=== PATIENT | female | born 1960 | race Caucasian/White ===

== ENCOUNTER 2016-07-02 10:19 | Outpatient (CLI) ==
[2016-03-19 15:57] VITALS: BMI 17.7
--- NOTE | 2016-07-02 12:24 | MRI ---
EXAM: MRI lumbar spine without IV contrast. DATE: 07/02/2016. HISTORY: Lumbar degenerative disc disease. TECHNIQUE: As sagittal and axial T1W and T2W sequences of the lumbar spine along with sagittal IR a nd coronal T2W sequences were obtained using 1.2 Karol magnet. No IV contrast. COMPARISON: MRI L-spine [address] L-spine [address] chest 10 Oct 2014. FINDINGS: There are five [id number] lumbar vertebra. At the thoracolumbar junction, there is a transitional vertebra with either hypoplastic ribs or unusual transverse processes. Previous CT s can demonstrates 11 thoracic vertebra with classic paired ribs followed by this transitional vertebr a. For the purposes of this dictation, and in keeping with nomenclature from previous studies, this transitional vertebra is referred to as T12. There is no lumbar scoliosis. A 2 mm anterior subluxation of L3 relative to L2, a 2.5 mm anterolist hesis of L4 relative to L3, a 3 mm anterolisthesis of L5 relative to L4 are observed. No other subl uxation, acute fracture, osseous malignancy, or pars interarticularis defect is identified. Lumbar v ertebra are normal in height. Anterior and lateral osteophytes are present at multiple lumbar level s. Minor L4-5 and moderate/marked L5-S1 disc space narrowing is detected. No sacral fracture or st ress reaction is apparent. SI joints are unremarkable. Conus medullaris terminates at L1. Visible spinal cord is normal. No retroperitoneal lymphadenopathy, paraspinal mass, or aortic aneurysm is detected. Paraspinal mus culature is symmetric bilaterally. Visible portions of the liver, spleen, adrenal glands and kidney s are limited by breathing motion artifacts; however, no definitive neoplasm is detected. Segmental analysis: T12-L1: Normal L1-2: Small/moderate concentric disc bulge (asymmetrically prominent in the left foramen to far lat eral region), superimposed left paracentral 2.4 x 5 mm disc protrusion, and minor facet disease caus e minimal right and mild/moderate left foraminal stenosis. Left L2 nerve root contacts the disc bul ge near the foramen. No central canal stenosis. L2-3: Minimal anterior subluxation of L3, small concentric disc bulge (with left foraminal annular fissure), and minor facet arthropathy cause mild left foraminal narrowing. No central canal stenosi s. L3-4: Mild anterior subluxation of L3, moderate concentric disc bulge, mild bilateral facet arthrop athy, and mild ligamentum flavum hypertrophy cause moderate central canal stenosis and mild/moderate bilateral foraminal stenoses. Left L3 nerve root contacts the disc bulge near the lateral margin o f the foramen. L4-5: Minor anterior subluxation of L5, moderate concentric disc bulge, superimposed midline disc e xtrusion (4 mm AP by 9 mm transverse x 10 mm behind the L5 superior endplate) mild facet arthropathy and moderate ligamentum flavum hypertrophy cause severe central canal stenosis, moderate/marked rig ht foraminal stenosis, and mild left foraminal stenosis. Right L4 nerve root contacts the disc bulg e near the lateral margin of the foramen. Disc bulge causes mild bilateral lateral recess stenosis. L5-S1: Moderate concentric disc bulge and minor facet arthropathy cause mild central canal stenosis , mild right foraminal stenosis, and marked left foraminal stenosis. Each L5 nerve root contacts th e disc bulge near the foramen. The disc bulge appears to compress the left S1 nerve root against th e left facet as the nerve is exiting the thecal sac. IMPRESSIONS: 1. L-spine moderate spondylosis, mild facet arthropathy, and multilevel DDD - - similar to Mar 2013 . 2. Multilevel central canal stenosis (L3-4: Moderate. L4-5: Severe. L5-S1: Mild). 3. Multilevel foraminal stenosis. Left L3, right L4, both L5 nerve compromise near the foramen. 4. L5-S1 disc bulge compresses the left S1 nerve root and could be a source for pain/radiculopathy. 5. 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
== END 2016-07-02 10:20 | disposition home or self-care (01) ==
LOC: RAD 10:19
PROVIDERS: ATTEND Family Medicine
DX: M51.36 Other intervertebral disc degeneration, lumbar region (principal)

== ENCOUNTER 2016-07-05 11:07 | Outpatient (CLI) ==
[2016-03-19 15:57] VITALS: BMI 17.7
--- NOTE | 2016-07-05 12:33 | CT ---
EXAM: CT THORAX HISTORY: Pulmonary nodule. TECHNIQUE: CT thorax without intravenous contrast. 5-mm axial sections. Coronal and sagittal re-fo rmations. 10/10/2014 COMPARISON: Heart size is within normal limits. Mild to moderate atherosclerotic disease of the aorta. Exam is limited without the administration of intravenous contrast agent although there appear to be a few nonspecific mediastinal lymph nodes probably remaining less than a centimeter short axis. The lungs are hyperinflated. There is basilar fibrosis with reticular architecture of the interstit ium at this level. Patchy areas of opacity, mostly pleural-based have increased since prior exam. T he well-defined nodular opacities previously seen appear stable. Pathology (malignancy or pneumonia ) within the small areas of peripheral consolidation cannot be excluded by this exam and follow-up C T is recommended. There is no pleural fluid or vascular congestion. The bones are within normal limits. IMPRESSION: 1. Hyperinflation and scattered fibrosis/chronic obstructive pulmonary disease grossly stable. Pat ulysses areas of opacity, mostly pleural-based have increased since prior exam. The well-defined nodular opacities previously seen appear stable. Pathology (malignancy or pneumonia) within the small area s of peripheral consolidation cannot be excluded by this exam and follow-up CT is recommended. Consi haim pulmonary consultation for further management planning. 2. Nonspecific mediastinal lymph nodes. 3. Mild to moderate atherosclerotic disease.
== END 2016-07-05 11:08 | disposition home or self-care (01) ==
LOC: RAD 11:07
PROVIDERS: ATTEND Family Medicine
DX: R91.1 Solitary pulmonary nodule (principal)

== ENCOUNTER 2016-07-25 17:20 | Emergency (ER) ==
[2016-07-25 17:27] VITALS: BP 114/87; TEMP 99.8; BMI 18.0
--- NOTE | 2016-07-25 18:01 | ED.PDOC ---
General ED Provider: Dr. QI BANDA Chief Complaint: Chest Wall Injury/Pain Stated Complaint: chest wall pain Time Seen by Physician: 17:30 Mode of Arrival: Walk-In Information Source: Patient Exam Limitations: No limitations Primary Care Provider: CONNIE ALDRIDGE Nursing and Triage Documentation Reviewed and Agree: Yes Trauma/Injury Complaint Exam - Trauma Complaint/Exam Location of Pain or Injury: Reports: Other Mechanism of Injury: Reports: Fall Symptoms Are: Still present Initial Severity: Mild Current Severity: Mild Character: Reports: Aching Aggravating: Reports: None Alleviating: Reports: None Associated Signs and Symptoms: Denies: LOC, Confusion, Memory loss, Lethargy, Vomiting, Bleeding, Bruising, Swelling, Extremity disuse, Painful respiration, Hoarseness, Dysphagia, Hemoptysis, Significant blood loss Related History: Reports: Similar episode Review of Systems - Review Of Systems Constitutional: Reports: No symptoms Eyes: Reports: No symptoms Ears, Nose, Mouth, Throat: Reports: No symptoms Respiratory: Reports: No symptoms Cardiac: Reports: Chest pain (right lateral chest wall) GI: Reports: No symptoms : Reports: No symptoms Musculoskeletal: Reports: No symptoms Skin: Reports: No symptoms Neurological: Reports: No symptoms Endocrine: Reports: No symptoms Hematologic/Lymphatic: Reports: No symptoms All Other Systems: Reviewed and Negative Past Medical History - Past Medical History Previously Healthy: No Endocrine: Reports: None, Hypothyroid Cardiovascular: Reports: None, Hypertension Respiratory: Reports: COPD Hematological: Reports: Anemia Gastrointestinal: Reports: GERD Genitourinary: Reports: None Neuro/Psych: Reports: None, TIA, Migraine, Anxiety, Depression, Other (CHRONIC HEADACHE) Musculoskeletal: Reports: Arthritis Cancer: Reports: Lung (NODULES ) Last Menstrual Period: N/A Other Pertinent Past Medical History: Reynauds, Lupus, back pain, heart problems - Surgical History General Surgical History: Reports: Hysterectomy, Appendectomy, Cholecystectomy, Unknown - Family History Family History: Reports: Unknown - Social History Smoking Status: Current every day smoker, Light tobacco smoker Hx Substance Use: No Alcohol Screening: Occasionally - Immunizations Tetanus Shot up to Date: Yes Physical Exam - Physical Exam Appearance: Well-appearing, No pain distress, Well-nourished Eyes: KE, EOMI, Conjunctiva clear ENT: Ears normal, Nose normal, Oropharynx normal Respiratory: Airway patent, Breath sounds clear, Breath sounds equal, Respirations nonlabored Cardiovascular: RRR, Pulses normal, No rub, No murmur GI/: Soft, Nontender, No masses, Bowel sounds normal, No Organomegaly Musculoskeletal: Normal strength, ROM intact, No edema, No calf tenderness Skin: Warm, Dry, Normal color Neurological: Sensation intact, Motor intact, Reflexes intact, Cranial nerves intact, Alert, Oriented Psychiatric: Affect appropriate, Mood appropriate Critical Care Note - Critical Care Note Total Time (mins): 0 Course - Course Vital Signs: Temp Pulse Resp BP Pulse Ox 07/25/16 17:20 99.8 F H 98 H 20 114/87 98 Departure - Departure Time of Disposition: 18:00 (refused imaging) Disposition: AMA Discharge Problem: Chest wall pain Instructions: Thoracic Pain (ED), Chest Wall Pain (ED) Condition: Good Pt referred to PMD for follow-up: No Additional Instructions: Please call your Family Physician as soon as possible to schedule a follow-up appointment. Allergies/Adverse Reactions: Allergies No Known Allergies Allergy (Verified 07/25/16 17:27) Home Medications: Ambulatory Orders Hydroxychloroquine Sulfate [Plaquenil] 200 mg PO BID 12/09/12 Levothyroxine Sodium [Tirosint] 50 mcg PO DAILY 12/09/12 Multivitamin 1 cap PO DAILY 12/09/12 Nifedipine [Procardia Xl] 60 mg PO DAILY 12/09/12 Potassium Chloride [Micro-K Cap] 10 meq PO DAILY 12/09/12 Trazodone HCl 100 mg PO BEDTIME 12/09/12 Hydrocodone Bit/Acetaminophen [[place] 7.5-325] 1 tab PO Q6HR PRN #12 tablet 03/19 Ondansetron [Zofran Odt] 4 mg PO Q6HR PRN #10 tab.rapdis 03/19/16 Amitriptyline HCl 50 mg PO BEDTIME 07/25/16 Cyclobenzaprine HCl [Flexeril] 10 mg PO Q8HR 07/25/16
== END 2016-07-25 18:33 | disposition left against medical advice (07) ==
LOC: ED 17:20
DX: R07.89 Other chest pain (principal); F17.210 Nicotine dependence, cigarettes, uncomplicated; Z79.899 Other long term (current) drug therapy
CPT/HCPCS: 99283

== ENCOUNTER 2016-10-20 21:52 | Inpatient (IN) ==
--- NOTE | 2016-10-20 22:23 | ED.PDOC ---
General ED Provider: Dr. FILIPE PONCE Chief Complaint: Chest Pain Stated Complaint: Been hurting in the left side of the chest on and off. not associated with SOB, PND. not short of breath. also c/o she is been feeling weak tired. Time Seen by Physician: 22:20 Mode of Arrival: Walk-In Information Source: Patient Nursing and Triage Documentation Reviewed and Agree: Yes Cardiovascular Complaint Exam - Chest Pain Complaint/Exam Onset: Gradual Symptoms Are: Resolved Timing: Intermittent Initial Severity: Mild Current Severity: Mild Location: Reports: Left lateral Pain Radiates: Reports: Left shoulder Character: Reports: Aching, Heaviness Aggravating: Reports: None Alleviating: Reports: None Associated Signs and Symptoms: Denies: Diaphoresis, Nausea, Vomiting, Fever, Palpitations, Cough, Hemoptysis, Back pain, Abdominal pain, Dizziness, Short of air, Calf pain, Calf swelling Related History: Reports: Similar episode Related Surgical History: Reports: None History of Healthcare-Acquired Pneumonia: Reports: No AMI/ACS Risk Factors: Reports: None TAD Risk Factors: Reports: None Pulmonary Embolism Risk Factors: Reports: None Prior Care for this Complaint: No Recent Stress Test: No Recent Echo/LV Function: No JVD Present: No Subcutaneous Emphysema Present: No Diminshed Breath Sounds: No Reproducible Chest Wall Pain: No Bilateral Pulses Present: Yes If Risk Factors for AMI/ACS Consider: EKG, Cardiac Enzymes, Serial Studies, Oxygen, Aspirin Differential Diagnoses: Stable Angina, Unstable Angina, Chest Wall Pain Quality Indicators For Acute ND or Cardiac Chest Pain: EKG in 10min. Review of Systems - Review Of Systems Constitutional: Reports: Malaise, Weakness Eyes: Reports: No symptoms Ears, Nose, Mouth, Throat: Reports: No symptoms Respiratory: Reports: No symptoms Cardiac: Reports: Chest pain GI: Reports: No symptoms : Reports: No symptoms Musculoskeletal: Reports: No symptoms Skin: Reports: No symptoms Neurological: Reports: Weakness Endocrine: Reports: No symptoms Hematologic/Lymphatic: Reports: No symptoms All Other Systems: Reviewed and Negative Past Medical History - Past Medical History Previously Healthy: No Endocrine: Reports: None, Hypothyroid Cardiovascular: Reports: None, Hypertension Respiratory: Reports: COPD Hematological: Reports: Anemia Gastrointestinal: Reports: GERD Genitourinary: Reports: None Neuro/Psych: Reports: None, TIA, Migraine, Anxiety, Depression, Other (CHRONIC HEADACHE) Musculoskeletal: Reports: Arthritis Cancer: Reports: Lung (NODULES ) Last Menstrual Period: NA Other Pertinent Past Medical History: Reynauds, Lupus, back pain, heart problems - Surgical History General Surgical History: Reports: Hysterectomy, Appendectomy, Cholecystectomy, Unknown - Family History Family History: Reports: Unknown - Social History Smoking Status: Current every day smoker, Heavy tobacco smoker Smoking Cessation Counseling Time: > 3 min - 10 min Hx Substance Use: Yes ([facility]) Alcohol Screening: Occasionally - Immunizations Tetanus Shot up to Date: Yes Physical Exam - Physical Exam Appearance: Ill-appearing, Thin Ill-appearing: Moderate Eyes: KE, EOMI ENT: Ears normal, Nose normal, Oropharynx normal Respiratory: Airway patent, Breath sounds clear, Breath sounds equal, Respirations nonlabored Cardiovascular: RRR, Pulses normal, No rub, No murmur GI/: Soft, Nontender, No masses, Bowel sounds normal, No Organomegaly Musculoskeletal: Normal strength, ROM intact, No edema, No calf tenderness Skin: Warm, Dry, Normal color Neurological: Sensation intact, Motor intact, Reflexes intact, Cranial nerves intact, Alert, Oriented Psychiatric: Affect appropriate, Mood appropriate Interpretation - Radiology Interpretation Radiology Interpretation By: Radiologist Radiology Results: Positive Exam Interpreted: CXR Critical Care Note - Critical Care Note Total Time (mins): 0 Course - Course Hematology/Chemistry: 10/20/16 22:40 10/20/16 22:40 Orders, Labs, Meds: Lab Review 10/20/16 10/20/16 10/20/16 22:40 22:53 23:00 WBC 7.28 RBC 2.94 L Hgb 7.6 L Hct 24.8 L MCV 84.4 MCH 25.9 L MCHC 30.6 L RDW Coeff of Mitzy 17.3 H Plt Count 339 Immature Gran % (Auto) 0.3 Neut % (Auto) 60.2 Lymph % (Auto) 28.4 [place] % (Auto) 9.6 Eos % (Auto) 1.2 Baso % (Auto) 0.3 Immature Gran # (Auto) 0.0 Neut # 4.4 Lymph # 2.1 [place] # 0.7 Eos # 0.1 Baso # 0.0 Sodium 143 Potassium 3.4 L Chloride 111 H Carbon Dioxide 24 Anion Gap 11.4 BUN 9 Creatinine 0.87 Estimated GFR (MDRD) 67.00 BUN/Creatinine Ratio 10.34 Glucose 85 Calcium 8.6 Magnesium 1.7 Total Bilirubin 0.11 AST 16 ALT 9 L Alkaline Phosphatase 88 Total Creatine Kinase 219 CK-MB (CK-2) 3.1 CK-MB (CK-2) % 1.07015 Troponin I 0.0310 Total Protein 6.3 L Albumin 3.0 L Globulin 3.3 Albumin/Globulin Ratio 0.91 Urine Color Yellow Urine Clarity Clear Urine pH 6.0 Ur Specific [place] 1.010 Urine Protein Negative Urine Glucose (UA) Negative Urine Ketones Negative Urine Blood Negative Urine Nitrite Negative Urine Bilirubin Negative Urine Urobilinogen 0.2 Ur Leukocyte Esterase 1+ Urine Microscopic WBC 5-10 Ur Squamous Epith Cells Not present Ur Renal Epithelial Cell 2-5 Urine Opiates Screen Positive Ur Oxycodone Screen Negative Urine Methadone Screen Negative Ur Propoxyphene Screen Negative Ur Barbiturates Screen Negative U Tricyclic Antidepress Positive Ur Phencyclidine Scrn Negative Ur Amphetamine Screen Negative U Methamphetamines Scrn Negative U Benzodiazepines Scrn Negative Urine Cocaine Screen Negative U Cannabinoids Screen Negative Orders Category Date Time Status CBC W/ AUTO DIFF Stat LAB 10/20/16 22:40 Completed COMPREHENSIVE METABOLIC PANEL Stat LAB 10/20/16 22:40 Completed CREATINE KINASE Stat LAB 10/20/16 22:40 Completed DRUG SCREEN, URINE, RAPID Stat LAB 10/20/16 23:00 Completed MAGNESIUM Stat LAB 10/20/16 22:53 Completed TROPONIN I Stat LAB 10/20/16 22:40 Completed URINALYSIS C & S IF INDICATED Stat LAB 10/20/16 23:00 Completed URINE CULTURE Stat LAB 10/20/16 23:[address] HEAD W/O CONTRAST Stat RADS 10/20/16 22:20 Completed CXR [CHEST, 2 VIEWS PA & LAT] Stat RADS 10/20/16 22:19 Completed Vital Signs: Temp Pulse Resp BP Pulse Ox 10/20/16 21:54 97.6 F 108 H 20 159/77 H 100 JOSE Risk Score JOSE Risk Score: Risk Score Odds of by 30D 0 0.1 (0.1-0.2) 1 0.3 (0.2-0.3) 2 0.4 (0.3-0.5) 3 0.7 (0.6-0.9) 4 1.2 (1.0-1.5) 5 2.2 (1.9-2.6) 6 3.0 (2.5-3.6) 7 4.8 (3.8-6.1) Departure - Departure Time of Disposition: 23:40 Disposition: ADMITTED INPATIENT Discharge Problem: Chest pain Anemia Qualifiers: Anemia type: iron deficiency Iron deficiency anemia type: chronic blood loss Qualifier Code: (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) Pneumonia Qualifiers: Pneumonia type: due to unspecified organism Laterality: bilateral Lung location : lower lobe of lung Qualifier Code: (J18.9) Pneumonia, unspecified organism Instructions: Chest Pain (ED) Condition: Stable Pt referred to PMD for follow-up: Yes Additional Instructions: advised to quite smoking keep f/u with PMD Allergies/Adverse Reactions: Allergies No Known Allergies Allergy (Verified 07/25/16 17:27) Home Medications: Ambulatory Orders Hydroxychloroquine Sulfate [Plaquenil] 200 mg PO BID 12/09/12 Levothyroxine Sodium [Tirosint] 50 mcg PO DAILY 12/09/12 Multivitamin 1 cap PO DAILY 12/09/12 Nifedipine [Procardia Xl] 60 mg PO DAILY 12/09/12 Potassium Chloride [Micro-K Cap] 10 meq PO DAILY 12/09/12 Trazodone HCl 100 mg PO BEDTIME 12/09/12 Hydrocodone Bit/Acetaminophen [[place] 7.5-325] 1 tab PO Q6HR PRN #12 tablet 03/19 Ondansetron [Zofran Odt] 4 mg PO Q6HR PRN #10 tab.rapdis 03/19/16 Amitriptyline HCl 50 mg PO BEDTIME 07/25/16 Cyclobenzaprine HCl [Flexeril] 10 mg PO Q8HR 07/25/16 Disposition Discussed With: Patient
[2016-10-20 22:48] LABS: BASOPHILS % (AUTO) 0.3 % (0.0-3.0); EOSINOPHILS # (AUTO) 0.1 K/ul (0.0-0.7); EOSINOPHILS % (AUTO) 1.2 % (0.0-7.0); HEMATOCRIT 24.8 % (37.0-47.0); HEMOGLOBIN 7.6 g/dl (12.0-16.0); IMMATURE GRANULOCYTE % (AUTO) 0.3 % (0.0-5.0); LYMPHOCYTES # (AUTO) 2.1 K/uL (0.60-3.4); LYMPHOCYTES % (AUTO) 28.4 (10.0-50.0); MEAN CORPUSCULAR HEMOGLOBIN 25.9 pg (27.0-31.0); MEAN CORPUSCULAR HGB CONC 30.6 (31.8-35.4); MEAN CORPUSCULAR VOLUME 84.4 fl (81.0-99.0); MONOCYTES # (AUTO) 0.7 K/uL (0.4-2.0); MONOCYTES % (AUTO) 9.6 (0-10); NEUTROPHILS # (AUTO) 4.4 K/ul (2.0-6.9); NEUTROPHILS % (AUTO) 60.2; PLATELET COUNT 339 10^3/uL (140-440); RED BLOOD COUNT 2.94 10^6/ul (4.20-5.40); WHITE BLOOD COUNT 7.28 K/ul (4.6-10.2)
--- NOTE | 2016-10-20 22:53 | CT ---
EXAM: CT scan brain without contrast HISTORY: Weakness COMPARISON: CT scan brain 08/08/2013 FINDINGS: Contiguous axial images obtained from the skull base to the convexities without contrast utilizing 5-mm collimation. Coronal reconstructions were imaged and reviewed.. The ventricles and C SF spaces are prominent compatible with age appropriate atrophy.. There is mild tracheal hypodensit y noted compatible with chronic microvascular disease. Post-infarctive encephalomalacia is seen wit hin the right temporal lobe with extension into the right parietal region. IMPRESSION: No acute intracranial findings.
--- NOTE | 2016-10-20 22:55 | DI ---
EXAM: Chest, two views, 10/20/2016 HISTORY: Chest pain COMPARISON: 02/12/2016 FINDINGS / IMPRESSION: Cardiomediastinal contours appear within normal limits. Interstitial infilt rate is present within both lungs. This is most severe at the right and left lung base. This may r epresent a combination of atelectasis and/or pneumonia. Mild superimposed edema not excluded. No p leural effusion. No pneumothorax.
[2016-10-20 23:12] LABS: BILIRUBIN,URINE Negative (NEGATIVE); KETONES,URINE Negative (NEGATIVE); LEUKOCYTE ESTERASE ,URINE 1+ (NEGATIVE); NITRITE,URINE Negative (NEGATIVE); PROTEIN,URINE Negative (NEGATIVE); URINE, BLOOD Negative (NEGATIVE)
[2016-10-20 23:18] LABS: ADD URINE MICROSCOPIC YES
[2016-10-20 23:22] LABS: ALBUMIN/GLOBULIN RATIO 0.91; ANION GAP 11.4; BILIRUBIN,TOTAL 0.11 mg/dL (0.00-1.20); BUN/CREATININE RATIO 10.34; CALCIUM 8.6 mg/dL (8.2-10.2); CREATININE 0.87 mg/dL (0.60-1.30); POTASSIUM 3.4 mmol/L (3.5-5.10); TOTAL PROTEIN 6.3 g/dL (6.4-8.2); TROPONIN I 0.031 ng/ml (0.0000-0.4000)
[2016-10-20 23:37] LABS: COCAIN SCREEN,URINE NEGATIVE (NEGATIVE)
[2016-10-20 23:38] LABS: CREATINE KINASE MB 3.1 ng/ml (0.0-3.6)
[2016-10-20] MEDS ORDERED: AMITRIPTYLINE HCL 50 MG PO SCH ×22 (23:45)
[2016-10-20] MEDS ORDERED: ROCEPHIN 1 GM in SODIUM CHLORIDE 50 ML IV SCH (23:45)
[2016-10-20] MEDS ORDERED: K-DUR PO STA (23:52)
[2016-10-21 00:11] LABS: RETICULOCYTE % 2.01 %
[2016-10-21 01:00] LABS: ABG PCO2 39.5 mmHg (35-45); ABG PH 7.387 (7.35-7.45)
[2016-10-21 01:00] LABS: FERRITIN 30.88 ng/mL (4.63-204.00); FOLATE 15.9 ng/mL (3.1-20.5)
[2016-10-21 01:01] LABS: ABG BASE EXCESS -1 (-2.0-2.0); ABG HCO3 23.7 (22.0-26.0); ABG TCO2 25 (22.0-28.0)
[2016-10-21] MEDS ORDERED: ROCEPHIN ONE (01:12)
[2016-10-21] MEDS: DUONEB NEB SCH ×5 (01:12→23:50)
[2016-10-21] MEDS ORDERED: ELAVIL PO ONE (01:13)
[2016-10-21] MEDS: SODIUM CHLORIDE 1,000 ML IV SCH (01:16)
[2016-10-21] MEDS: SOLU-MEDROL 40 MG IVP SCH ×3 (01:16→21:35)
[2016-10-21 06:04] LABS: BASOPHILS % (AUTO) 0.1 % (0.0-3.0); EOSINOPHILS % (AUTO) 0.1 % (0.0-7.0); HEMATOCRIT 25.1 % (37.0-47.0); HEMOGLOBIN 7.6 g/dl (12.0-16.0); IMMATURE GRANULOCYTE % (AUTO) 0.5 % (0.0-5.0); LYMPHOCYTES # (AUTO) 0.6 K/uL (0.60-3.4); LYMPHOCYTES % (AUTO) 6.2 (10.0-50.0); MEAN CORPUSCULAR HEMOGLOBIN 25.3 pg (27.0-31.0); MEAN CORPUSCULAR HGB CONC 30.3 (31.8-35.4); MEAN CORPUSCULAR VOLUME 83.7 fl (81.0-99.0); MONOCYTES # (AUTO) 0.1 K/uL (0.4-2.0); MONOCYTES % (AUTO) 0.8 (0-10); NEUTROPHILS # (AUTO) 8.6 K/ul (2.0-6.9); NEUTROPHILS % (AUTO) 92.3; PLATELET COUNT 328 10^3/uL (140-440)
[2016-10-21 06:39] LABS: ALBUMIN/GLOBULIN RATIO 0.91; ANION GAP 11.7; BILIRUBIN,TOTAL 0.15 mg/dL (0.00-1.20); BUN/CREATININE RATIO 10.97; CALCIUM 8.9 mg/dL (8.2-10.2); CREATININE 0.82 mg/dL (0.60-1.30); POTASSIUM 3.7 mmol/L (3.5-5.10); TOTAL PROTEIN 6.3 g/dL (6.4-8.2); TROPONIN I 0.021 ng/ml (0.0000-0.4000)
[2016-10-21 06:40] LABS: CREATINE KINASE MB 2.4 ng/ml (0.0-3.6)
[2016-10-21] MEDS: SYNTHROID PO SCH (08:30)
[2016-10-21] MEDS: PROCARDIA XL PO SCH (08:31)
[2016-10-21] MEDS: NORCO 7.5-325 PO PRN ×2 (08:31→15:40)
[2016-10-21] MEDS: MICRO-K CAP PO SCH (08:31)
[2016-10-21] MEDS: PLAQUENIL PO SCH ×2 (08:31→20:46)
[2016-10-21] MEDS: PROTONIX IV IVP SCH (08:32)
[2016-10-21] MEDS ORDERED: NON-FORMULARY MEDICATION (Hydroxychloroquine Sulfate 200 MG) PO SCH (09:00)
[2016-10-21] MEDS ORDERED: LEVOTHYROXINE SODIUM 50 MCG PO SCH ×22 (09:00)
--- NOTE | 2016-10-21 11:00 | PCM.PROG ---
Attending Provider: ATTENDING PROVIDER: Dr. FILIPE PONCE DATE OF SERVICE: 10/21/16 SUBJECTIVE: This 56 year old WHITE/ F was hospitalized 10/21/16 with anemia and community acquired pneumonia. Hemoglobin is 7.6. The patient says she did notice black tarry stools last month. REVIEW OF SYSTEMS: CONSTITUTIONAL: Weakness, tiredness. No fever, no chills. ENDOCRINE: No weight loss or weight gain. HEENT: No sinus drainage, no sore throat. CVS: No angina symptoms. No CHF symptoms. No palpitations. No atypical chest pain for CAD. No shortness of breath. RESPIRATORY: Cough. No hemoptysis. GI: No melena. No abdominal pain. No nausea, no vomiting. : No hematuria. No polyuria. SKIN: No rash. No wounds. MUSCULOSKELETAL: No pain. FORENSIC SCIENTIST: No blackout, no dizziness. No headache. No double vision. PSYCHIATRIC: Not anxious; no depression. No suicidal thoughts. No homicidal thoughts. PHYSICAL EXAMINATION: GENERAL: Cachetic lady lying in bed in no distress. VITAL SIGNS: Temperature 97.8 F, Pulse 82, Respiratory Rate 18, BP 100/50, Pulse Ox 95% HEENT: Normocephalic, atraumatic. Mucosa is dry, pallor positive. NECK: No JVP, no carotid bruit. No lymphadenopathy. CARDIAC: S1, S2, no S3. No murmur, gallop or regurgitation. LUNGS: Decreased entry. Crackles left more than right. ABDOMEN: Abdominal discomfort all over. Bowel sounds active. No rigidity, guarding or CVA tenderness. EXTREMITIES: No clubbing, cyanosis or edema. NEUROLOGIC: Awake, alert and oriented x3. LYMPHATIC: No palpable lymph nodes SKIN: Not dry. Intact. MUSCULOSKELETAL: No joint swelling. LAB REVIEW: 10/21/16 06:02 10/21/16 06:02 10/21/16 06:02: WBC 9.30, RBC 3.00 L, Hgb 7.6 L, Hct 25.1 L, MCV 83.7, MCH 25.3 L, MCHC 30.3 L, RDW Coeff of Mitzy 17.5 H, Plt Count 328, Immature Gran % (Auto) 0.5, Neut % (Auto) 92.3, Lymph % (Auto) 6.2 L, [place] % (Auto) 0.8, Eos % (Auto) 0.1, Baso % (Auto) 0.1, Immature Gran # (Auto) 0.1, Neut # 8.6 H, Lymph # 0.6, [place] # 0.1 L, Eos # 0.0, Baso # 0.0, Sodium 144, Potassium 3.7, Chloride 112 H, Carbon Dioxide 24, Anion Gap 11.7, BUN 9, Creatinine 0.82, Estimated GFR (MDRD) 72.00, BUN/Creatinine Ratio 10.97, Glucose 128 H, Calcium 8.9, Total Bilirubin 0.15, AST 15, ALT 9 L, Alkaline Phosphatase 87, Total Creatine Kinase 159, CK- MB (CK-2) 2.4, CK-MB (CK-2) % 1.30542, Troponin I 0.0210, Total Protein 6.3 L, Albumin 3.0 L, Globulin 3.3, Albumin/Globulin Ratio 0.91 10/21/16 00:43: Puncture Site Lb, O2 Saturation 97.0, ABG pH 7.387, ABG pCO2 39.5, ABG pO2 93.0, ABG HCO3 23.7, ABG Total CO2 25, ABG Base Excess -1, Hank Test +, FiO2 % 21.0 ASSESSMENT: 1. Anemia, rule out GI bleed 2. Community acquired pneumonia bilateral lower lobes 3. Hypertension 4. Dyslipidemia 5. Depression 6. DJD spine 7. Nicotine use PLAN: 1. Continue Rocephin 2. Continue Duonebs 3. Transfuse [address] chest [address] CT abdomen and pelvis 6. Stool for occult blood Plan and coordination of the patient's care discussed in the presence of Reeling And Tubing Machine Operator and nurse. CONDITION: Stable SCRIBED BY: NAOMI ABDALLA, Financial Aid Advisor scribed while in presence of service performed by Dr. FILIPE PONCE on 10/21/16 ([id number])
--- NOTE | 2016-10-21 13:19 | CT ---
EXAM: CT chest with and without contrast HISTORY: There is a breath, pneumonia COMPARISON: 07/13/2016 TECHNIQUE: CT chest performed with and without intravenous contrast. Coronal and sagittal reformat dejuan images obtained. FINDINGS: Thyroid and thoracic inlet appear normal. Heart is mildly enlarged. No pericardial effu martha. Aorta normal in caliber. Atherosclerosis. There are several enlarged mediastinal and bilate ral hilar lymph nodes. For example a 1.5 cm subcarinal lymph node, image 70 and a 1.4 cm left hilar lymph node, image 33. Small hiatal hernia. Suggestion of mild wall thickening mid and distal esop hagus could represent esophagitis. No acute abnormalities of the bones. There are subacute fractur es right lateral fifth and sixth ribs with callus formation. Central airway patent. Smooth interlo bular septal thickening suggested. Underlying peripheral chronic interstitial change suggested. Bi basilar consolidation. Small bilateral pleural effusions. 5 mm pulmonary nodule left lung image 43, grossly unchanged. Previously described right lung nodule obscured. No pneumothorax. Please refer to separate report CT abdomen pelvis regarding findings in the upper abdomen. IMPRESSION: 1. Bibasilar consolidation likely represents pneumonia. 2. Cardiomegaly. Findings suggesting pulmonary interstitial edema. Small bilateral pleural effusi ons. 3. Underlying chronic interstitial changes. 4. Mediastinal and hilar lymphadenopathy. CT chest with contrast follow-up recommended in 6 months for reevaluation. 5. Stable pulmonary nodule. This can be assessed on follow-up. 6. Suggestion of mild wall thickening mid and distal esophagus could represent esophagitis. Findin gs can be correlated with endoscopy. 7. Subacute fractures right lateral fifth and sixth ribs
--- NOTE | 2016-10-21 13:19 | CT ---
EXAM: CT ABDOMEN AND PELVIS HISTORY: Anemia, abdominal pain. TECHNIQUE: CT abdomen and pelvis with and without intravenous contrast. Images were reconstructed using 5 mm section thickness. Reformations were prepared. 75 mL Omnipaque. COMPARISON: 02/12/2016 FINDINGS: No focal hepatic or splenic lesions identified. Gallbladder is absent. Pancreas and adrenal glands are within normal limits. Normal enhancement of the kidneys with no hydronephrosis. Moderate vasc ular calcifications consistent with atherosclerosis or diabetic angiopathy. No aneurysmal caliber o f the aorta. Small sliding hiatal hernia. Stomach is otherwise unremarkable. Normal appendix. Moderate fecal ret ention throughout most of the colon. Nonobstructive bowel gas pattern. No uterus is identified. Th ere is moderate distension of the urinary bladder. Trace pelvic ascites, nonspecific. No inflammat ory focus within the abdominal fat is obvious. No ventral abdominal wall hernia. Dense breast tissue is seen bilaterally. Again noted is mild scle rosis of the upper femoral heads similar to that seen previously consistent with early avascular nec rosis. No pneumoperitoneum. See also same day CT thorax report. Basilar consolidations and pleura l fluid. IMPRESSION: 1. No definite etiology for the patient's anemia was found. Consider further workup. 2. Small sliding hiatal hernia. 3. Moderate fecal retention with nonobstructive bowel gas pattern. 4. Vascular calcifications. 5. Moderate distension of the urinary bladder, nonspecific. Correlate for adequate voiding functio n. 6. Lung base findings as described on same day CT thorax report.
[2016-10-21 15:18] LABS: CREATINE KINASE 127 U/L
[2016-10-21 15:21] LABS: CREATINE KINASE MB 1.8 ng/ml (0.0-3.6)
[2016-10-21 19:07] LABS: HEMOGLOBIN 10.9 g/dl (12.0-16.0)
[2016-10-21] MEDS: DESYREL PO SCH (20:45)
[2016-10-21] MEDS: ROCEPHIN 1 GM in SODIUM CHLORIDE 50 ML IV SCH (20:45)
[2016-10-21] MEDS: ELAVIL PO SCH (20:46)
[2016-10-21] MEDS ORDERED: NON-FORMULARY MEDICATION (Trazodone Hcl [Trazodone Hcl] 100 MG) PO SCH ×22 (21:00)
[2016-10-21] MEDS ORDERED: ZOFRAN 4 MG/2 ML IVP STA (22:42)
[2016-10-22] MEDS: DUONEB NEB SCH ×4 (05:03→23:00)
[2016-10-22 05:25] LABS: BASOPHILS % (AUTO) 0.1 % (0.0-3.0); HEMATOCRIT 33.2 % (37.0-47.0); HEMOGLOBIN 10.7 g/dl (12.0-16.0); IMMATURE GRANULOCYTE % (AUTO) 0.6 % (0.0-5.0); LYMPHOCYTES # (AUTO) 0.8 K/uL (0.60-3.4); LYMPHOCYTES % (AUTO) 4.9 (10.0-50.0); MEAN CORPUSCULAR HEMOGLOBIN 26.5 pg (27.0-31.0); MEAN CORPUSCULAR HGB CONC 32.2 (31.8-35.4); MEAN CORPUSCULAR VOLUME 82.2 fl (81.0-99.0); MONOCYTES # (AUTO) 0.3 K/uL (0.4-2.0); MONOCYTES % (AUTO) 1.8 (0-10); NEUTROPHILS # (AUTO) 14.2 K/ul (2.0-6.9); NEUTROPHILS % (AUTO) 92.6; PLATELET COUNT 323 10^3/uL (140-440); RED BLOOD COUNT 4.04 10^6/ul (4.20-5.40); WHITE BLOOD COUNT 15.36 K/ul (4.6-10.2)
[2016-10-22] MEDS: SYNTHROID PO SCH (05:29)
[2016-10-22 05:57] LABS: ALBUMIN/GLOBULIN RATIO 0.86; ANION GAP 14.2; BILIRUBIN,TOTAL 0.22 mg/dL (0.00-1.20); BUN/CREATININE RATIO 17.94; CALCIUM 9.2 mg/dL (8.2-10.2); CREATININE 0.78 mg/dL (0.60-1.30); POTASSIUM 4.2 mmol/L (3.5-5.10); TOTAL PROTEIN 6.5 g/dL (6.4-8.2)
[2016-10-22] MEDS: SODIUM CHLORIDE 1,000 ML IV SCH (09:10)
[2016-10-22] MEDS ORDERED: CITRATE OF MAGNESIA PO STA (09:53)
[2016-10-22] MEDS ORDERED: DULCOLAX RC STA (09:58)
[2016-10-22] MEDS: PLAQUENIL PO SCH ×2 (10:05→20:13)
[2016-10-22] MEDS: PROCARDIA XL PO SCH (10:05)
[2016-10-22] MEDS: MICRO-K CAP PO SCH (10:06)
[2016-10-22] MEDS: PROTONIX IV IVP SCH (10:06)
[2016-10-22] MEDS: SOLU-MEDROL 40 MG IVP SCH ×2 (10:07→21:31)
[2016-10-22 12:16] LABS: HEMATOCRIT 33.2 % (37.0-47.0); HEMOGLOBIN 10.6 g/dl (12.0-16.0)
[2016-10-22] MEDS ORDERED: ZITHROMAX PO STA (14:29)
[2016-10-22] MEDS ORDERED: MILK OF MAGNESIA PO STA (20:10)
[2016-10-22] MEDS: DESYREL PO SCH (20:13)
[2016-10-22] MEDS: ROCEPHIN 1 GM in SODIUM CHLORIDE 50 ML IV SCH (20:13)
[2016-10-22] MEDS: ELAVIL PO SCH (20:14)
[2016-10-22] MEDS: NORCO 7.5-325 PO PRN (21:29)
[2016-10-23] MEDS: NORCO 7.5-325 PO PRN (03:55)
[2016-10-23] MEDS: DUONEB NEB SCH ×2 (04:55→11:18)
[2016-10-23 05:39] LABS: BASOPHILS % (AUTO) 0.1 % (0.0-3.0); HEMATOCRIT 31.9 % (37.0-47.0); HEMOGLOBIN 10.1 g/dl (12.0-16.0); IMMATURE GRANULOCYTE % (AUTO) 0.6 % (0.0-5.0); LYMPHOCYTES # (AUTO) 0.9 K/uL (0.60-3.4); LYMPHOCYTES % (AUTO) 6.4 (10.0-50.0); MEAN CORPUSCULAR HEMOGLOBIN 26.1 pg (27.0-31.0); MEAN CORPUSCULAR HGB CONC 31.7 (31.8-35.4); MEAN CORPUSCULAR VOLUME 82.4 fl (81.0-99.0); MONOCYTES # (AUTO) 0.3 K/uL (0.4-2.0); MONOCYTES % (AUTO) 1.7 (0-10); NEUTROPHILS # (AUTO) 13.3 K/ul (2.0-6.9); NEUTROPHILS % (AUTO) 91.2; PLATELET COUNT 320 10^3/uL (140-440); RED BLOOD COUNT 3.87 10^6/ul (4.20-5.40); WHITE BLOOD COUNT 14.61 K/ul (4.6-10.2)
[2016-10-23] MEDS: SYNTHROID PO SCH (05:54)
[2016-10-23 06:10] LABS: ALBUMIN 3.1 g/dL (3.4-5.0); ALBUMIN/GLOBULIN RATIO 0.97; ANION GAP 11.3; BILIRUBIN,TOTAL 0.24 mg/dL (0.00-1.20); BUN/CREATININE RATIO 22.07; CREATININE 0.77 mg/dL (0.60-1.30); POTASSIUM 4.3 mmol/L (3.5-5.10); TOTAL PROTEIN 6.3 g/dL (6.4-8.2)
[2016-10-23] MEDS: MICRO-K CAP PO SCH (08:17)
[2016-10-23] MEDS: PLAQUENIL PO SCH (08:17)
[2016-10-23] MEDS: PROCARDIA XL PO SCH (08:17)
[2016-10-23] MEDS: PROTONIX IV IVP SCH (08:57)
[2016-10-23] MEDS: SOLU-MEDROL 40 MG IVP SCH (08:59)
[2016-10-23] MEDS ORDERED: ZITHROMAX PO SCH (09:00)
[2016-10-23] MEDS ORDERED: CITRATE OF MAGNESIA PO STA (10:18)
[2016-10-23 14:35] VITALS: BP 113/72; TEMP 98.3
--- NOTE | 2016-10-23 16:01 | DI ---
EXAM: Chest two views HISTORY: Pneumonia COMPARISON: 10/20/2016 TECHNIQUE: Two views of the chest were performed FINDINGS: Bibasilar consolidation, left greater than right, grossly unchanged. Possible small bila teral pleural effusions. No visible pneumothorax. Heart and mediastinal contour unchanged. Pulmona ry vascular congestion/interstitial edema. IMPRESSION: 1. Bibasilar consolidation likely representing pneumonia, grossly unchanged. 2. Findings suggesting pulmonary vascular congestion/interstitial edema.
[2016-10-23] MEDS ORDERED: LASIX IVP STA (16:11)
[2016-10-23] MEDS ORDERED: LASIX ONE (16:15)
--- NOTE | 2016-10-25 12:52 | ECHO2D ---
Date of Exam: 10/22/2016 Ordering Physician: FILIPE PON[facility] PCP: CONNIE ALDRIDGE Reason for Echo: CARDIOMEGALY, CONGESTIVE HEART FAILURE, COPD, DYSLIPIDEMIA, HYPERTENSION M-Mode Normal Adult Results LV Dimensions Normal Adult Results AoV Opening excursions >1.6 >1.6 LVEDD-base- 3.5-5.8 4.9 Ao root dimensions 2.0-3.7 3.0 LVESD-base- 3.1-4.6 L. Atrium dimensions 1.9-3.8 4.8 Post. Wall thickness 0.8-1.1 0.8 IV septum (thickness) 0.7-1.2 1.0 Post. Wall excursion 0.72-1.3 NORMAL Septal motion NORMAL Systolic motion R. Ventricular cavity 1.5-2.0 NORMAL LVEF 60% 56% Paradoxical septal wall motion NORMAL 2-D : FIXED POSTERIOR MITRAL LEAFLET (PML); THICKENED ANTERIOR MITRAL LEAFLET ( AML), PLIABLE. THICKENED CHORDAE TENDINEA, NORMAL LEFT VENTRICULAR CONTRACTILITY, NO EFFUSION, NO THROMBOSIS, ENLARGED LEFT ATRIAL CAVITY AND LEFT VENTRICLE SIZE DOPPLER WITH COLORFLOW: MODERATE MITRAL REGURGITATION M-MODE: MV: FIXED POSTERIOR MITRAL LEAFLET / PLIABLE THICKENED ANTERIOR MITRAL LEAFLET (MITRAL STENOSIS-VALVE AREA 2 CM2) AV: NORMAL TV: PV: NORMAL CHAMBER SIZE: ENLARGED LEFT ATRIAL CAVITY WALL MOTION: NORMAL PERICARDIUM: NORMAL INTERPRETATION: 1. MILD MITRAL STENOSIS AREA (2 CM2) 2. MODERATE MITRAL REGURGITATION 3. NORMAL LEFT VENTRICLE SIZE / CONTRACTILITY 4. ENLARGED LEFT ATRIAL CAVITY 5. RECOMMEND ECHOCARDIOGRAM YEARLY MTDD
--- NOTE | 2016-10-27 09:39 | DS ---
DATE OF SERVICE: 10/23/16 FINAL DIAGNOSIS: 1. Bilateral pneumonia, community acquired 2. Anemia needing blood transfusion from GI bleed 3. Hypertension 4. Dyslipidemia 5. Dilated Cardiomyopathy 6. Mitral regurgitation 7. Mitral stenosis 8. Raynaud's disease 9. TIA 10.COPD 11.Diverticulosis 12.Appendectomy 13.Cholecystectomy 14.Occasional marijuana use DISCHARGE INSTRUCTIONS: Discharge the patient home. Continue followup with PMD as scheduled. Continue the rest of the home medications MEDICATIONS AT DISCHARGE: [place] Zofran Flexeril Amitriptyline Plaquenil Levothyroxine Multivitamin Procardia Potassium Prednisone Trazodone NEW PRESCRIPTIONS: Keflex 500mg twice a day Medrol Dosepack Prednisone 10mg PO twice a day DIET INSTRUCTIONS: Cardiac and healthy ACTIVITY: As tolerated SMOKING: Current everyday smoker, light tobacco smoker. DISEASE SPECIFIC EDUCATION: Anemia and needing the GI consultation and colonoscopy and risk of colon cancer been discussed. Advised to take some iron tablets over the counter COPD Pneumonia Needing for the pneumonia vaccination been discussed with the patient and verbalized understanding. HOSPITAL COURSE: Donya Arndt who is a 56 year old female came to the emergency room with cough and congestion and fever. She was seen by me in the emergency room. On examination the patient ABG's were high. Hgb 7.6, potassium 3.4. Chest x-ray showed the bilateral pneumonia and at that time the patient was admitted to the hospital with anemia and bilateral pneumonia. Anemia profile was done and iron was 17, vitamin B [address] of abdomen and pelvis she had done which did not show any acute finding. CT done which did show bilateral pneumonia. Continue the Rocephin later I will add the Azithromycin, Solu-medrol and breathing treatments were given. Hgb then dropped to 7.6 at that time type and cross match 2 units were given which is more steady after the blood transfusion; 10.7 and 10.6. Repeat chest x-ray was done on 10/23/16 and the bilateral pneumonia was still showing the pulmonary congestion. In review of dilated heart on CT chest I ordered and echocardiogram which did showed mitral valve stenosis and regurgitation. Ejection fraction was normal. Repeat chest x-ray still showed the pneumonia but patient insisted that she has to go home as her relatives are coming. Explained in case the patient is feeling bad she can always come back. Advised to take the Probiotics with the antibiotics. TIME SPENT: More than 55 minutes. MTDD
--- NOTE | 2016-10-27 15:38 | PN ---
DATE OF SERVICE: 10/22/16 SUBJECTIVE: The patient was the community acquired pneumonia and anemia. The patient did get 2 units of the blood transfusion. Today hgb 10.6. CT of the chest did show the bilateral pneumonia and esophagitis. REVIEW OF SYSTEMS: CONSTITUTIONAL: No fever, no chills. HEENT: Normal. ENDOCRINE: No weight gain, no weight loss. CVS: No angina symptoms. No CHF symptoms. No palpitations. No atypical chest pain for CAD. No shortness of breath. No PND, no orthopnea. RESPIRATORY: Still coughing, no hemoptysis. GI: No nausea, no vomiting. No abdominal pain. : No hematuria. No polyuria. MUSCULOSKELETAL:. No joint swelling. PSYCHIATRIC: Not anxious. No depression. No suicidal thoughts. No homicidal thoughts. SKIN: Intact. No rash. PHYSICAL EXAMINATION: V/S: Blood pressure 113/67, respiratory rate 16, heart rate 98 and temperature 98.1. GENERAL: Cachetic lady laying in the bed. HEENT: Normocephalic, atraumatic. Mucosa dry. Pallor positive. no icterus. NECK: Supple. No JVD, no carotid bruit. No lymphadenopathy. LUNGS: Decreased and basilar crackles. No rales or rhonchi. HEART: S1, S2 normal. No S3. No murmur, gallop or regurgitation. ABDOMEN: Soft, nontender. Bowel sounds active. No rigidity. No rebound or guarding. No CVA tenderness. EXTREMITIES: No clubbing, cyanosis or pedal edema. MUSCULOSKELETAL: No joint swelling. NEUROLOGIC: Awake, alert, oriented times three. No focal deficit. LYMPHATIC: No lymph nodes palpable. SKIN: Intact. Dry. LABS: WBC 15.36, hgb 10.7, hct 33.2, plt count 323, sodium 142, potassium 4.2, chloride 107, bicarb 25, BUN 15, creatinine 0.78 ASSESSMENT: 1. Community acquired pneumonia 2. Anemia, 2 unit blood transfusion 3. Cachexia 4. GERD 5. Osteoarthritis 6. DJD spine 7. History of TIA 8. Appendectomy 9. Cholecystectomy PLAN: 1. Continue the Rocephin 1 gram daily 2. DUO NEBS 3. Solu-Medrol 4. Out of bed to chair activity as tolerated. TIME SPENT: More than 30 minutes MTDD
== END 2016-10-23 17:00 | disposition home or self-care (01) | DRG 194 ==
LOC: ED 21:52 → MEDSURG B 10-21 00:16
PROVIDERS: ADMIT Emergency Medicine; ATTEND Emergency Medicine
PROC: 30233N1 Transfusion of Nonautologous Red Blood Cells into Peripheral Vein, Percutaneous Approach (ICD-10-PCS; principal; 2016-10-21)
PROC: 30233N1 Transfusion of Nonautologous Red Blood Cells into Peripheral Vein, Percutaneous Approach (ICD-10-PCS; 2016-10-21)
DX: J18.9 Pneumonia, unspecified organism (principal); I42.0 Dilated cardiomyopathy; R07.9 Chest pain, unspecified; D50.0 Iron deficiency anemia secondary to blood loss (chronic); R53.1 Weakness; I05.2 Rheumatic mitral stenosis with insufficiency; I10 Essential (primary) hypertension; E78.5 Hyperlipidemia, unspecified; I73.00 Raynaud's syndrome without gangrene; K57.30 Diverticulosis of large intestine without perforation or abscess without bleeding; F12.90 Cannabis use, unspecified, uncomplicated; F17.200 Nicotine dependence, unspecified, uncomplicated; Z86.73 Personal history of transient ischemic attack (TIA), and cerebral infarction without residual deficits; Z79.899 Other long term (current) drug therapy
CPT/HCPCS: 36415; 36430; 80053; 80306; 81001; 82550; 82553; 82607; 82728; 82746; 82803; 83540; 83550; 83735; 84466; 84484; 85014; 85018; 85025; 85045; 86850; 86900; 86922; 87086; 93005; 93010; 94640; 99284

== ENCOUNTER 2016-10-25 13:37 | Inpatient (IN) ==
[2016-10-25 14:00] LABS: BASOPHILS % (AUTO) 0.1 % (0.0-3.0); EOSINOPHILS # (AUTO) 0.2 K/ul (0.0-0.7); EOSINOPHILS % (AUTO) 1.6 % (0.0-7.0); HEMATOCRIT 31.5 % (37.0-47.0); HEMOGLOBIN 9.9 g/dl (12.0-16.0); IMMATURE GRANULOCYTE % (AUTO) 0.4 % (0.0-5.0); LYMPHOCYTES # (AUTO) 2.5 K/uL (0.60-3.4); LYMPHOCYTES % (AUTO) 26.9 (10.0-50.0); MEAN CORPUSCULAR HEMOGLOBIN 26.4 pg (27.0-31.0); MEAN CORPUSCULAR HGB CONC 31.4 (31.8-35.4); MONOCYTES # (AUTO) 0.9 K/uL (0.4-2.0); MONOCYTES % (AUTO) 10.1 (0-10); NEUTROPHILS # (AUTO) 5.6 K/ul (2.0-6.9); NEUTROPHILS % (AUTO) 60.9; PLATELET COUNT 289 10^3/uL (140-440); RED BLOOD COUNT 3.75 10^6/ul (4.20-5.40); WHITE BLOOD COUNT 9.23 K/ul (4.6-10.2)
[2016-10-25 14:15] LABS: PROTHROMBIN TIME 10.9 SEC (9.3-11.0)
[2016-10-25 14:22] LABS: ABG PH 7.547 (7.35-7.45)
[2016-10-25 14:23] LABS: ABG BASE EXCESS 9 (-2.0-2.0); ABG PCO2 35.7 mmHg (35-45); ABG TCO2 32 (22.0-28.0)
--- NOTE | 2016-10-25 14:36 | DI ---
EXAM: Single frontal view of the chest HISTORY: Cough. COMPARISON: Chest x-ray 10/23/2016 FINDINGS: Cardiomediastinal silhouette is unchanged. There is lower lobe airway thickening and grou nd-glass with questionable consolidation in the left lower lobe. There is minimal blunting the cost ophrenic angles. There is no pneumothorax. The osseous structures are unremarkable. IMPRESSION: 1. Bilateral airway thickening and ground-glass with questionable consolidation in the left lower l obe consistent with pneumonia. 2. Questionable blunting of the costophrenic angles may represent subtle effusion.
[2016-10-25 15:07] LABS: ACETAMINOPHEN 9 ug/ml (10-30); ALANINE AMINOTRANSFERASE 6 U/L (12-78); ALBUMIN 3.1 g/dL (3.4-5.0); ALBUMIN/GLOBULIN RATIO 1.03; ALKALINE PHOSPHATASE 68 U/L (42-98); ASPARTATE AMINO TRANSFERASE 14 U/L (15-37); BLOOD UREA NITROGEN 15 mg/dL (7-18); BUN/CREATININE RATIO 15.95; CALCIUM 8.7 mg/dL (8.2-10.2); CARBON DIOXIDE 30 mmol/L (21-32); CHLORIDE 100 mmol/L (98-107); CREATINE KINASE 76 U/L; CREATININE 0.94 mg/dL (0.60-1.30); GLUCOSE 76 mg/dL (70-110); SALICYLATE < 5.0 mg/dL (2.8-20.0); SODIUM 139 mmol/L (136-145); TOTAL PROTEIN 6.1 g/dL (6.4-8.2)
[2016-10-25] MEDS ORDERED: NARCAN IVP STA (15:26)
[2016-10-25] MEDS ORDERED: SODIUM CHLORIDE 1,000 ML IV STA (15:26)
[2016-10-25 16:19] LABS: BILIRUBIN,URINE Negative (NEGATIVE); KETONES,URINE Negative (NEGATIVE); LEUKOCYTE ESTERASE ,URINE Negative (NEGATIVE); NITRITE,URINE Negative (NEGATIVE); PROTEIN,URINE Negative (NEGATIVE); URINE, BLOOD Negative (NEGATIVE)
[2016-10-25 16:24] LABS: ADD URINE MICROSCOPIC NO
[2016-10-25 16:27] LABS: COCAIN SCREEN,URINE NEGATIVE (NEGATIVE)
--- NOTE | 2016-10-25 16:35 | ED.PDOC ---
General ED Provider: Dr. QI BANDA Chief Complaint: Altered Mental Status Stated Complaint: altered mental status Time Seen by Physician: 13:40 (arrived by [facility] altered lethargic reported to have overdosed unknown meds ) Mode of Arrival: Ambulance Information Source: EMT Exam Limitations: No limitations Primary Care Provider: CONNIE ALDRIDGE Nursing and Triage Documentation Reviewed and Agree: Yes Neurological Complaint Exam - Altered Mental Status Complaint/Exam Current Mental Status: Other (altered arousable ) Last Known Well: unknown Duration: unknown Symptoms Are: Still present Episodes Lasting: Minutes (after narcan has rapid recovery) Initial Severity: Moderate Current Severity: Moderate Eye Deviation Present: No Character: Reports: Responsiveness, Lethargy Aggravating: Reports: Medication change (overdose ) Alleviating: Reports: Medication Associated Signs and Symptoms: Denies: Dizziness, Weakness, Headache, Fever, Illness, Nuchal rigidity, Seizure, Nausea, Vomiting, Recently depressed, Trauma Cardiac Risk Factors: Reports: Hypertension CVA Risk Factors: Reports: Hypertension Related Surgical History: Reports: None Carotid Bruit Present: No Nystagmus Present: No Gag Reflex Present: Yes Meningeal Signs Positive: No Focal Weakness: Present: None Focal Sensory Loss: Present: None Gait: Normal Romberg Test Positive: No Babinski Sign: Negative Right, Negative Left Signs of Injury: Present: Normal findings Differential Diagnoses: Overdose Review of Systems - Review Of Systems Constitutional: Reports: No symptoms Eyes: Reports: No symptoms Ears, Nose, Mouth, Throat: Reports: No symptoms Respiratory: Reports: No symptoms Cardiac: Reports: No symptoms GI: Reports: No symptoms : Reports: No symptoms Musculoskeletal: Reports: No symptoms Skin: Reports: No symptoms Neurological: Reports: Cognitive dysfunction Endocrine: Reports: No symptoms Hematologic/Lymphatic: Reports: No symptoms All Other Systems: Reviewed and Negative Past Medical History - Past Medical History Previously Healthy: No Endocrine: Reports: None, Hypothyroid Cardiovascular: Reports: None, Hypertension Respiratory: Reports: COPD Hematological: Reports: Anemia Gastrointestinal: Reports: GERD Genitourinary: Reports: None Neuro/Psych: Reports: None, TIA, Migraine, Anxiety, Depression, Other (CHRONIC HEADACHE) Musculoskeletal: Reports: Arthritis Cancer: Reports: Lung (NODULES ) Last Menstrual Period: hysterectomy Other Pertinent Past Medical History: Reynauds, Lupus, back pain, heart problems - Surgical History General Surgical History: Reports: Hysterectomy, Appendectomy, Cholecystectomy, Unknown - Family History Family History: Reports: Unknown - Social History Smoking Status: Current every day smoker, Light tobacco smoker Hx Substance Use: No Alcohol Screening: Occasionally Physical Exam - Physical Exam Appearance: Ill-appearing Ill-appearing: Moderate Pain Distress: Moderate Eyes: Conjunctiva clear (pupils 3mm unreactive post narcan they were PERLLA ) ENT: Ears normal, Nose normal, Oropharynx normal Respiratory: Airway patent, Breath sounds clear, Breath sounds equal, Respirations nonlabored Cardiovascular: RRR, Pulses normal, No rub, No murmur GI/: Soft, Nontender, No masses, Bowel sounds normal, No Organomegaly Musculoskeletal: Normal strength, ROM intact, No edema, No calf tenderness Skin: Warm, Dry, Normal color Neurological: Sensation intact, Motor intact, Reflexes intact, Cranial nerves intact, Alert, Oriented Psychiatric: Affect appropriate, Mood appropriate Critical Care Note - Critical Care Note Total Time (mins): 0 Course - Course Hematology/Chemistry: 10/25/16 13:50 10/25/16 13:50 Orders, Labs, Meds: Lab Review 10/25/16 10/25/16 10/25/16 13:40 13:50 16:10 WBC 9.23 D RBC 3.75 L Hgb 9.9 L Hct 31.5 L MCV 84.0 MCH 26.4 L MCHC 31.4 L RDW Coeff of Mitzy 17.4 H Plt Count 289 Immature Gran % (Auto) 0.4 Neut % (Auto) 60.9 Lymph % (Auto) 26.9 Tift % (Auto) 10.1 H Eos % (Auto) 1.6 Baso % (Auto) 0.1 Immature Gran # (Auto) 0.0 Neut # 5.6 Lymph # 2.5 Tift # 0.9 Eos # 0.2 Baso # 0.0 PT 10.9 INR 1.06 APTT 25.0 Puncture Site Lbrach O2 Saturation 98.0 ABG pH 7.547 H* ABG pCO2 35.7 ABG pO2 94.0 ABG HCO3 31.0 H ABG Total CO2 32 H ABG Base Excess 9 H FiO2 % 21.0 Sodium 139 Potassium 4.0 Chloride 100 Carbon Dioxide 30 Anion Gap 13.0 BUN 15 Creatinine 0.94 Estimated GFR (MDRD) 61.00 BUN/Creatinine Ratio 15.95 Glucose 76 Calcium 8.7 Total Bilirubin 0.20 AST 14 L ALT 6 L Alkaline Phosphatase 68 Total Creatine Kinase 76 Troponin I < 0.0100 Total Protein 6.1 L Albumin 3.1 L Globulin 3.0 Albumin/Globulin Ratio 1.03 Urine Color Yellow Urine Clarity Clear Urine pH 6.0 Ur Specific [place] 1.010 Urine Protein Negative Urine Glucose (UA) Negative Urine Ketones Negative Urine Blood Negative Urine Nitrite Negative Urine Bilirubin Negative Urine Urobilinogen 0.2 Ur Leukocyte Esterase Negative Salicylate Level mg/dL < 5.0 Urine Opiates Screen Positive Ur Oxycodone Screen Negative Urine Methadone Screen Negative Ur Propoxyphene Screen Negative Acetaminophen 9 L Ur Barbiturates Screen Negative U Tricyclic Antidepress Positive Ur Phencyclidine Scrn Negative Ur Amphetamine Screen Negative U Methamphetamines Scrn Negative U Benzodiazepines Scrn Negative Urine Cocaine Screen Negative U Cannabinoids Screen Negative Orders Category Date Time Status ABG DRAW REQUEST Stat CARDIO 10/25/16 14:25 Completed EKG-(ED ONLY) Stat CARDIO 10/25/16 13:52 Completed EKG-(ED ONLY) Stat CARDIO 10/25/16 15:26 Ordered ABG Routine LAB 10/25/16 13:40 Completed ACETAMINOPHEN Stat LAB 10/25/16 13:50 Completed CBC W/ AUTO DIFF Stat LAB 10/25/16 13:50 Completed COMPREHENSIVE METABOLIC PANEL Stat LAB 10/25/16 13:50 Completed CREATINE KINASE Stat LAB 10/25/16 13:50 Completed PARTIAL THROMBOPLASTIN TIME Stat LAB 10/25/16 13:50 Completed PT WITH INR Stat LAB 10/25/16 13:50 Completed SALICYLATE Stat LAB 10/25/16 13:50 Completed TROPONIN I Stat LAB 10/25/16 13:50 Completed URINALYSIS C & S IF INDICATED Stat LAB 10/25/16 16:10 Completed URINE DRUG SCREEN (RAPID FOR ED) [DRUG SCREEN, URINE, LAB 10/25/16 16:10 Completed RAPID] Stat 0.9 % Sodium Chloride [Saline Flush] MEDS 10/25/16 13:51 Active 1 syr IVF PRN PRN Naloxone HCl [Narcan] MEDS 10/25/16 15:26 Discontinued 0.8 mg IVP ONCE STA Sodium Chloride 0.9% [Sodium Chloride] 1,000 ml MEDS 10/25/16 15:26 Discontinued IV BOLUS CHEST, 1V AP ONLY Stat RADS 10/25/16 13:52 Completed Medications Generic Name Dose Route Start Last Admin Trade Name Freq PRN Reason Stop Dose Admin Sodium Chloride 1 syr 10/25/16 13:51 10/25/16 15:40 Saline Flush IVF 1 syr PRN PRN Administration To flush IV Discontinued Medications Generic Name Dose Route Start Last Admin Trade Name Nikitaq PRN Reason Stop Dose Admin Sodium Chloride 1,000 mls @ 1,000 mls/hr 10/25/16 15:26 10/25/16 15:39 Sodium Chloride IV 10/25/16 16:25 1,000 mls/hr BOLUS STA Administration Naloxone HCl 0.8 mg 10/25/16 15:26 10/25/16 15:35 Narcan IVP 10/25/16 15:27 0.8 mg ONCE STA Administration Vital Signs: Temp Pulse Resp BP Pulse Ox 10/25/16 13:38 100.4 F H 81 16 116/73 95 Departure - Departure Time of Disposition: 16:38 Disposition: ADMITTED INPATIENT Discharge Problem: Altered mental status Overdose opiate Qualifiers: Encounter type: initial encounter Injury intent: undetermined intent Qualifier Code: (T40.604A) Poisoning by unspecified narcotics, undetermined, initial encounter Instructions: Adult Overdose (ED) Condition: Good Pt referred to PMD for follow-up: No Additional Instructions: Please call your Family Physician as soon as possible to schedule a follow-up appointment. Allergies/Adverse Reactions: Allergies No Known Allergies Allergy (Verified 10/25/16 13:51) Home Medications: Ambulatory Orders Levothyroxine Sodium [Tirosint] 75 mcg PO DAILY 12/09/12 Amitriptyline HCl 75 mg PO BEDTIME 07/25/16 Cyclobenzaprine HCl [Flexeril] 10 mg PO Q8HR 07/25/16 Aspirin [Ecotrin] 325 mg PO DAILY 10/25/16 Clonazepam [Klonopin] 1 mg PO TID PRN 10/25/16 Gabapentin 600 mg PO BID 10/25/16 Ibuprofen 800 mg PO TID 10/25/16 Ranitidine HCl [Zantac] 150 mg PO BIDAC 10/25/16 Tizanidine HCl 4 mg PO Q8HR 10/25/16
[2016-10-25] MEDS ORDERED: SODIUM CHLORIDE 1,000 ML IV SCH (17:00)
[2016-10-25 18:39] VITALS: BMI 19.4
[2016-10-25] MEDS ORDERED: INFUVITE ADULT IV ONE (20:36)
[2016-10-25] MEDS: INFUVITE ADULT 10 ML in D5%-1/2NS-KCL 20 MEQ/L IV SOL 1,000 ML IV SCH (20:40)
[2016-10-25 21:38] LABS: ERYTHROCYTE SEDIMENTATION RATE 21 mm/hr (0-20); ESR INTERNAL QC INTERNAL QC VALID
[2016-10-25 23:21] LABS: TROPONIN I 0.017 ng/ml (0.0000-0.4000)
[2016-10-26 06:53] LABS: BASOPHILS % (AUTO) 0.3 % (0.0-3.0); EOSINOPHILS # (AUTO) 0.1 K/ul (0.0-0.7); HEMATOCRIT 33.6 % (37.0-47.0); HEMOGLOBIN 10.4 g/dl (12.0-16.0); IMMATURE GRANULOCYTE % (AUTO) 0.4 % (0.0-5.0); LYMPHOCYTES # (AUTO) 1.9 K/uL (0.60-3.4); MEAN CORPUSCULAR HEMOGLOBIN 26.1 pg (27.0-31.0); MEAN CORPUSCULAR VOLUME 84.4 fl (81.0-99.0); MONOCYTES # (AUTO) 0.7 K/uL (0.4-2.0); MONOCYTES % (AUTO) 9.3 (0-10); NEUTROPHILS # (AUTO) 4.4 K/ul (2.0-6.9); PLATELET COUNT 268 10^3/uL (140-440); RED BLOOD COUNT 3.98 10^6/ul (4.20-5.40); WHITE BLOOD COUNT 7.12 K/ul (4.6-10.2)
[2016-10-26 07:19] LABS: ALANINE AMINOTRANSFERASE < 6 U/L (12-78); ALBUMIN 2.8 g/dL (3.4-5.0); ALBUMIN/GLOBULIN RATIO 1.12; ALKALINE PHOSPHATASE 61 U/L (42-98); ASPARTATE AMINO TRANSFERASE 12 U/L (15-37); BILIRUBIN,TOTAL 0.29 mg/dL (0.00-1.20); BLOOD UREA NITROGEN 12 mg/dL (7-18); BUN/CREATININE RATIO 14.45; CALCIUM 8.4 mg/dL (8.2-10.2); CARBON DIOXIDE 29 mmol/L (21-32); CHLORIDE 108 mmol/L (98-107); CREATINE KINASE 38 U/L; CREATININE 0.83 mg/dL (0.60-1.30); GLUCOSE 87 mg/dL (70-110); SODIUM 143 mmol/L (136-145); TOTAL PROTEIN 5.3 g/dL (6.4-8.2)
[2016-10-26] MEDS: INFUVITE ADULT 10 ML in D5%-1/2NS-KCL 20 MEQ/L IV SOL 1,000 ML IV SCH ×2 (08:31→20:43)
--- NOTE | 2016-10-26 09:57 | HP ---
CHIEF COMPLAINT: Change in mental status, "she described it like she was drunk". SOURCE OF HISTORY: Pedro Arndt, Son HISTORY OF PRESENT ILLNESS: The son, Pedro Arndt, claimed that his mother had been staying with him for about week. She was discharged from this facility 10/23/16 after three days of hospital stay because of bilateral pneumonia. He claimed that his mother woke up this morning looking OK and took her medication. However in the afternoon the patient according to Pedro was behaving like she was drunk. Her speech was slurred and so he called the ambulance. The patient never loss consciousness. The patient had admitted to taking Hydrocodone but does not know the amount of medications. We will check with those medications tomorrow and how many were left and when it was dispensed to her. Her drug screen was positive for opioids and Tricyclics. Quantitative measurement was requested. She was given Narcan 0.8mg IV. PAST PERSONAL HISTORY: This was patient was recently confined at [facility] 10/21/16 to 10/23/16 for pneumonia. Hypothyroidism COPD Depression Anxiety Migraine TIA x3 Arthritis Raynaud's disease SLE Back pain Heart problems Hepatitis B Her providers are in [place], [facility] [place] and [facility] FAMILY HISTORY: Brother: Skin carcinoma Mother: Breast Carcinoma Father: Emphysema SURGICAL HISTORY: Hysterectomy Cholecystectomy Appendectomy Left TKR Eye Surgery SOCIAL HISTORY: The patient is and resides alone but lately in the week to week and a half she is residing with her son Pedro Arndt. She smokes about a pack of cigarettes a day and drinks occasionally. She used to work at the [employer] several years ago. She had not worked since after she left the [employer]. She also had two fractured ribs but the son did not know how it came about. MEDICATIONS: Levothyroxine 75mcg daily Amitriptyline 75mg at bedtime Flexeril 10mg every 8 hours Gabapentin 300mg twice a day Aspirin 325mg daily Ranitidine 150mg twice a day Tizanidine 4mg Q 8 hours Ibuprofen 800mg three times a day Clonazepam 1mg three times a day PRN ALLERGIES: No known drug allergies. REVIEW OF SYSTEMS: The rest of the systems could not be reviewed very well since the patient is not able to answer questions. CONSTITUTIONAL: The patient had low grade temperature but no chills and drowsy. PATTERN DESIGNER: The patient drowsy and speech is slurried. VISUAL: AUDITORY: RESPIRATORY: CARDIOVASCULAR: GASTROINTESTINAL: GENITOURINARY: MUSCULOSKELETAL: ENDOCRINE: INTEGUMENT: ENDOCRINE: HEMATOLOGIC: INTEGUMENT: PSYCHIATRIC: PHYSICAL EXAMINATION: GENERAL: We have a 56 year old female who is arousable and barely answers questions. VITAL SIGNS: Temperature 100.4, pulse 81, blood pressure 116/76, respiratory rate 16 and oxygen saturation 95 and was weighed at 5'7 128 pounds. HEAD: Unremarkable FACE: Symmetrical and equal with no facial weakness. No significant tenderness to palpation in the frontal maxillary sinus area judging from her reaction. EYES: Pupils equal/reactive to light. 3mm in size. Conjunctivae not pale. Sclerae not icteric. THROAT: No inflammation, tumors or exudate. NECK: No masses. No bruit. No tenderness. No rigidity. CHEST: Symmetrical and equal with good expansion LUNGS: Breath sounds are heard in both sides with rales with both lung vicente, lower. No expiratory wheezing. HEART: Audible and regular with good tones. No murmurs. ABDOMEN: Flat, soft with no remarkable tenderness. No guarding, bowels sounds are active. No masses palpable. EXTERNAL GENITALIA: Not performed RECTAL: Not performed LOWER EXTREMITIES: Symmetrical and equal with no significant edema. Interior tibials are present. UPPER EXTREMITIES: Symmetrical and equal ASSESSMENT: 1. Lethargy, probably drug induced reason probably therapeutic 2. Bilateral pneumonitis, persistent 3. History of Raynaud's disease 4. History of SLE 5. History of Hypothyroidism, replaced 6. History of COPD 7. History of Hepatitis B 8. History of Depression 9. History of Anxiety 10.History of Migraine headaches 11.History of TIA, 3 episodes 12.History of back pain 13.History of heart problems 14.Hysterectomy 15.Cholecystectomy 16.Appendectomy 17.Left TKR 18.Eye surgery 19.Chronic tobacco use and abuse persistent 20.Moderate to severe anemia probably iron deficiency. PLAN: 1. Will get sputum culture 2. Blood culture which is already ordered 3. CT scan of the chest 4. Will probably institute an antibiotic, there was no recorded antibiotics on admission. She was discharged only about 2 days ago. INA
--- NOTE | 2016-10-26 13:56 | CT ---
Exam: CT of the chest without contrast History: Follow-up pneumonia Technique: [address] of the chest without intravascular contrast FINDINGS: Prior CT dated 10/21/2016. Small bilateral pleural effusions again noted. Adjacent pare nchymal opacities have improved. Pleural fluid thickness on the right is a maximum of 1.9 cm previou sly 2.9 cm. Pleural fluid on the left measures 1.9 cm previously 2.6 cm. Fibrotic coarsening of th e subpleural lungs. Atherosclerotic calcification of the aorta with maximum ascending diameter of 3 .3 cm. No acute findings of the chest wall soft tissues or bony thorax. Prior healed right rib fra ctures. Significant amount of debris within the esophagus. Large stool noted in the colon. Impression: 1. Persistent but decreased pleural fluid and decreased adjacent parenchymal opacities. No pneumon ia type infiltrates are seen. 2. Underlying fibrotic lung disease 3. Incidental large stool in the upper abdomen 4. Incidental significant material in the esophagus. Correlate for reflux.
--- NOTE | 2016-10-26 13:59 | CT ---
EXAM: CT head without contrast. HISTORY: Altered level of consciousness. COMPARISON: 10/20/2016. TECHNIQUE: Multiple axial images of the brain were obtained from the skull base through the vertex without intravenous contrast. FINDINGS: There is no intracranial hemorrhage or extraaxial collection. The carrion-white differentia tion is maintained without evidence for acute large vascular territory infarction. Right temporal/p arietal lobe encephalomalacia again noted. The cortical sulci and basal cisterns are well visualize d. There is no hydrocephalus, mass effect, or midline shift. Mild mucosal thickening seen in the r ight sphenoid sinus. Otherwise, the paranasal sinuses and mastoid air cells are clear. The calvari um is intact. IMPRESSION: 1. No acute intracranial abnormality. 2. Redemonstration of right temporal parietal encephalomalacia.
[2016-10-26] MEDS ORDERED: INFUVITE ADULT IV ONE (19:48)
[2016-10-26] MEDS ORDERED: ELAVIL PO SCH (21:30)
[2016-10-26] MEDS: NEURONTIN PO SCH (22:10)
[2016-10-26] MEDS: KLONOPIN PO SCH (22:10)
[2016-10-27 05:31] LABS: BASOPHILS % (AUTO) 0.1 % (0.0-3.0); EOSINOPHILS # (AUTO) 0.2 K/ul (0.0-0.7); HEMATOCRIT 33.8 % (37.0-47.0); HEMOGLOBIN 10.7 g/dl (12.0-16.0); IMMATURE GRANULOCYTE % (AUTO) 0.5 % (0.0-5.0); LYMPHOCYTES # (AUTO) 1.9 K/uL (0.60-3.4); LYMPHOCYTES % (AUTO) 25.1 (10.0-50.0); MEAN CORPUSCULAR HEMOGLOBIN 26.4 pg (27.0-31.0); MEAN CORPUSCULAR HGB CONC 31.7 (31.8-35.4); MEAN CORPUSCULAR VOLUME 83.3 fl (81.0-99.0); MONOCYTES # (AUTO) 0.7 K/uL (0.4-2.0); MONOCYTES % (AUTO) 9.9 (0-10); NEUTROPHILS # (AUTO) 4.6 K/ul (2.0-6.9); NEUTROPHILS % (AUTO) 62.4; PLATELET COUNT 295 10^3/uL (140-440); RED BLOOD COUNT 4.06 10^6/ul (4.20-5.40); WHITE BLOOD COUNT 7.38 K/ul (4.6-10.2)
[2016-10-27 06:11] LABS: ALANINE AMINOTRANSFERASE < 6 U/L (12-78); ALBUMIN 2.9 g/dL (3.4-5.0); ALKALINE PHOSPHATASE 67 U/L (42-98); ANION GAP 11.2; ASPARTATE AMINO TRANSFERASE 14 U/L (15-37); BLOOD UREA NITROGEN 15 mg/dL (7-18); BUN/CREATININE RATIO 17.24; CALCIUM 8.6 mg/dL (8.2-10.2); CARBON DIOXIDE 27 mmol/L (21-32); CHLORIDE 106 mmol/L (98-107); CREATININE 0.87 mg/dL (0.60-1.30); GLUCOSE 107 mg/dL (70-110); POTASSIUM 4.2 mmol/L (3.5-5.10); SODIUM 140 mmol/L (136-145); TOTAL PROTEIN 5.8 g/dL (6.4-8.2)
[2016-10-27] MEDS: NEURONTIN PO SCH (08:45)
[2016-10-27] MEDS: KLONOPIN PO SCH (08:45)
[2016-10-27] MEDS ORDERED: INFUVITE ADULT IV ONE (08:58)
[2016-10-27] MEDS: INFUVITE ADULT 10 ML in D5%-1/2NS-KCL 20 MEQ/L IV SOL 1,000 ML IV SCH (09:03)
--- NOTE | 2016-10-27 09:11 | PN ---
DATE OF VISIT: 10/26/16 56 year old female who was admitted to the hospital because of lethargy and probably ingestion of medications of more than what was prescribed. We are in the process of counting the medications of what was left and when it was dispensed to the patient. This patient was recently in the hospital. Admitted on 10/21/16 and discharged on 10/23/16. This patient should have more medication than what is in her bottles. The medication are in the custody of the Pharmacist at this time at the hospital. I asked Adriana, the Registered Nurse who is in charge of her today, to count the number of pills and whether it is correct as to yesterday and from the time it was dispensed to her. If there is a discrepancy, we would have to account for it and maybe that was the reason why this patient was more lethargic and the son described his mother as being drunk or acts like a drunk individual. The patient, today, is alert and responsive. Her orientation is better. VITAL SIGNS: This morning on 10/26/2016 at 5:19 a.m. showed a temperature of 97.7, pulse 68, blood pressure 149/88, respiratory rate 16, oxygen saturation 98. I saw this patient somewhere about 9:15 a.m. Labs: Showed moderate to severe anemia and probably iron deficiency. The MCV is 84, above 80, but the MCH is 26.1 and 26.4, below 27. RDW is 17.2 and 17.4 respectively. The patient had a history of Lupus, however her ESR today is only 21. CT scan of the head is without acute intracranial process and the CT scan of the chest without contrast does not show any pneumonia infiltrate. No antibiotic treatment will be given to this patient. MTDD
[2016-10-27 09:52] VITALS: BP 114/71; TEMP 98.4
--- NOTE | 2016-11-02 11:00 | PN ---
DATE OF VISIT: 10/27/16 I came to see the patient about 1 p.m. in the afternoon or just before and talked to her about the medications. I told her that we had counted the medications and there are some discrepancies with her medications. It seemed like she might be using a bit more than what is prescribed. She told me that she kept her other medications locked at her place. I told her if it is possible for her son to go and get it and bring it to the hospital, so that we can count it. She told me that her son could not come since he works for someone and he is underneath the house right now. The son came last night about 9 p.m. according to her. She claimed that she gets medication from her provider. The patient is alert and responsive and follows verbal commands. She has good movements of both upper and lower extremities. LUNGS: The lungs has a few rales at the bases. No wheezing. HEART: Normal sinus rhythm. GENERAL: Her color is good and she was not dyspneic, nor tachypneic. I was contacted by the nurse the patient is going to sign out. I had informed the patient earlier that as soon as I get all the medications that she has and what kind of medications she had been taking, that she most likely will be discharged home in the evening. The patient, however, told the nurse that she was going home. The patient count not be convinced to stay and the patient left the hospital ambulatory. The patient claimed that she is going to walk home to her son's house. This patient told me that she can see her doctor anytime and I told her that she should see her physician maybe by Tuesday and before that if she has some concerns. INA
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
== END 2016-10-27 13:35 | disposition left against medical advice (07) | DRG 918 ==
LOC: ED 13:37 → SCU 16:42
PROVIDERS: ADMIT General Practice; ATTEND General Practice
DX: T40.604A Poisoning by unspecified narcotics, undetermined, initial encounter (principal); R53.83 Other fatigue; R41.82 Altered mental status, unspecified; D50.9 Iron deficiency anemia, unspecified; R09.89 Other specified symptoms and signs involving the circulatory and respiratory systems; I73.9 Peripheral vascular disease, unspecified; E03.9 Hypothyroidism, unspecified; J44.9 Chronic obstructive pulmonary disease, unspecified; F41.8 Other specified anxiety disorders; I73.00 Raynaud's syndrome without gangrene; M32.9 Systemic lupus erythematosus, unspecified; M54.5 Low back pain; I51.89 Other ill-defined heart diseases; Z86.69 Personal history of other diseases of the nervous system and sense organs; Z86.19 Personal history of other infectious and parasitic diseases; Z86.73 Personal history of transient ischemic attack (TIA), and cerebral infarction without residual deficits; Z79.01 Long term (current) use of anticoagulants; Z79.899 Other long term (current) drug therapy
CPT/HCPCS: 36415; 80053; 80306; 80307; 81001; 82550; 82803; 82962; 84145; 84443; 84484; 85025; 85610; 85651; 85730; 87040; 87081; 93005; 93010; 96361; 96374; 99284

== ENCOUNTER 2016-12-07 03:09 | Emergency (ER) ==
[2016-12-07 03:19] VITALS: BP 100/67; TEMP 97.7; BMI 20.2
[2016-12-07] MEDS ORDERED: TORADOL IM STA (03:45)
[2016-12-07] MEDS ORDERED: ZOFRAN ODT PO STA (03:45)
[2016-12-07] MEDS ORDERED: STADOL IM STA (03:45)
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
== END 2016-12-07 04:09 | disposition home or self-care (01) ==
LOC: ED 03:09
DX: M54.9 Dorsalgia, unspecified (principal); G89.29 Other chronic pain; I10 Essential (primary) hypertension; F17.210 Nicotine dependence, cigarettes, uncomplicated
CPT/HCPCS: 96372; 99282

== ENCOUNTER 2017-01-04 18:25 | Emergency (ER) ==
[2017-01-04 18:26] VITALS: BMI 20.2
[2017-01-04 18:29] VITALS: BP 104/67; TEMP 98.4
--- NOTE | 2017-01-04 18:43 | ED.PDOC ---
General ED Provider: Dr. DARLENE BOWDEN-ER Chief Complaint: Headache Stated Complaint: i have a migraine estevez--its like the usual migraine Time Seen by Physician: 18:30 Mode of Arrival: Walk-In Information Source: Patient Exam Limitations: No limitations Primary Care Provider: CONNIE ALDRIDGE Nursing and Triage Documentation Reviewed and Agree: Yes Neurological Complaint Exam - Headache Complaint/Exam Onset: Gradual Duration: 3 hrs Symptoms Are: Still present Timing: Constant Episodes Lasting: Hours Worst Headache Ever: No Initial Severity: Severe Current Severity: None Character: Reports: Dull, Throbbing, Pressure, Typical headache, Migraine Aggravating: Reports: Bright lights Alleviating: Reports: None Associated Signs and Symptoms: Reports: Nausea, Neck pain. Denies: Dizziness, Seizure, Vomiting, Sinus pressure, Fever, Neck stiffness, Decreased LOC, Visual changes Related History: Reports: Similar episode. Denies: Recent trauma, Remote trauma Temporal Arteritis Risk Factors: Reports: Female, Normal Head CT Within Last 12 Months: No Fundoscopic Exam: Present: Normal Findings Papilledema Present: No Temporal Artery Tenderness: Present: None Sinus Tenderness: Present: None TMJ Tenderness: Present: None Glascow Coma Scale (see protocol): 15 Meningeal Signs Positive: No Pain on Passive Flexion-Positive Kernig's: No ROM Limited In: No Limitiations Focal Weakness: Present: None Focal Sensory Loss: Present: None Gait: Normal Nystagmus Present: No Gag Reflex Present: Yes [id number]: Normal Findings Romberg Test Positive: No Babinski Sign: Negative Right, Negative Left Heel to Toe Normal: Yes Differential Diagnoses: Migraine Review of Systems - Review Of Systems Constitutional: Reports: No symptoms Eyes: Reports: No symptoms Ears, Nose, Mouth, Throat: Reports: No symptoms Respiratory: Reports: No symptoms Cardiac: Reports: No symptoms GI: Reports: Nausea : Reports: No symptoms Musculoskeletal: Reports: No symptoms Skin: Reports: No symptoms Neurological: Reports: Headache Endocrine: Reports: No symptoms Hematologic/Lymphatic: Reports: No symptoms All Other Systems: Reviewed and Negative Past Medical History - Past Medical History Previously Healthy: No Endocrine: Reports: Hypothyroid Cardiovascular: Reports: Hypertension Respiratory: Reports: COPD Hematological: Reports: Anemia Gastrointestinal: Reports: GERD Genitourinary: Reports: None Neuro/Psych: Reports: TIA, Migraine, Anxiety, Depression, Other (CHRONIC HEADACHE) Musculoskeletal: Reports: Arthritis Cancer: Reports: Lung (NODULES ) Last Menstrual Period: hysterectomy Other Pertinent Past Medical History: Reynauds, Lupus, back pain, heart problems - Surgical History General Surgical History: Reports: Hysterectomy, Appendectomy, Cholecystectomy, Unknown - Family History Family History: Reports: Unknown - Social History Smoking Status: Current every day smoker Hx Substance Use: No Alcohol Screening: Occasionally Physical Exam - Physical Exam Appearance: Well-appearing, No pain distress, Well-nourished Pain Distress: Moderate Eyes: KE, EOMI, Conjunctiva clear ENT: Ears normal, Nose normal, Oropharynx normal Neck: Supple Respiratory: Airway patent, Breath sounds clear, Breath sounds equal, Respirations nonlabored Cardiovascular: RRR, Pulses normal, No rub, No murmur GI/: Soft, Nontender, No masses, Bowel sounds normal, No Organomegaly Musculoskeletal: Normal strength Skin: Warm, Dry, Normal color Neurological: Sensation intact, Motor intact, Alert, Oriented Psychiatric: Affect appropriate, Mood appropriate Interpretation - Radiology Interpretation Radiology Interpretation By: Radiologist Radiology Results: Negative Exam Interpreted: CT Scan Re-Evaluation - Re-Evaluation Time of Re-Evaluation: 19:15 Status: Improved Vital Signs Stable: Yes Pain Level: 0 Appearance: NAD Lungs: Clear Skin: Warm and Dry Neuro: Alert and Oriented X3 CV: RRR Critical Care Note - Critical Care Note Total Time (mins): 0 Course - Course Orders, Labs, Meds: Orders Category Date Time Status Hydromorphone HCl [Dilaudid 1 mg/ml Syringe] MEDS 01/04/17 18:39 Discontinued 1 mg IM ONCE STA Promethazine HCl [Phenergan 25 mg/ml Vial] MEDS 01/04/17 18:39 Discontinued 25 mg IM ONCE STA CT HEAD W/O CONTRAST Stat RADS 01/04/17 18:44 Completed Medications Discontinued Medications Generic Name Dose Route Start Last Admin Trade Name Freq PRN Reason Stop Dose Admin Hydromorphone HCl 1 mg 01/04/17 18:39 01/04/17 18:55 Dilaudid 1 Mg/Ml Syringe IM 01/04/17 18:40 1 mg ONCE STA Administration Promethazine HCl 25 mg 01/04/17 18:39 01/04/17 18:55 Phenergan 25 Mg/Ml Vial IM 01/04/17 18:40 25 mg ONCE STA Administration Vital Signs: Temp Pulse Resp BP Pulse Ox 01/04/17 18:26 98.4 F 92 H 20 104/67 96 Departure - Departure Time of Disposition: 18:43 Disposition: HOME SELF-CARE Discharge Problem: Headache Instructions: Migraine Headache (ED) Condition: Good Pt referred to PMD for follow-up: Yes Allergies/Adverse Reactions: Allergies No Known Allergies Allergy (Verified 01/04/17 18:31) Home Medications: Ambulatory Orders Levothyroxine Sodium [Tirosint] 75 mcg PO DAILY 12/09/12 Cyclobenzaprine HCl [Flexeril] 10 mg PO Q8HR 07/25/16 Aspirin [Ecotrin] 325 mg PO DAILY 10/25/16 Clonazepam [Klonopin] 1 mg PO TID PRN 10/25/16 Gabapentin 600 mg PO BID 10/25/16 Ibuprofen 800 mg PO TID 10/25/16 Ranitidine HCl [Zantac] 150 mg PO BIDAC 10/25/16 Tizanidine HCl 4 mg PO Q8HR 10/25/16 Amitriptyline HCl 50 mg PO BEDTIME 10/26/16 Hydrocodone/Acetaminophen [Hydrocodon-Acetaminoph 7.5-325] 1 tab PO Q6H Disposition Discussed With: Patient
[2017-01-04] MEDS: DILAUDID 1 MG/ML SYRINGE IM STA (18:55)
[2017-01-04] MEDS: PHENERGAN 25 MG/ML VIAL IM STA (18:55)
--- NOTE | 2017-01-04 19:32 | CT ---
EXAM: CT brain without contrast HISTORY: Headache TECHNIQUE: CT of the brain without intravenous contrast FINDINGS: There is no acute hemorrhage midline shift or mass effect. No hydrocephalus or abnormal extra-axial fluid collection. Generalized involutional atrophy, mild. Chronic microvascular change s of the white matter tracts, mild. 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 No new areas of infarct are seen. The bony cranium appears normal. The visualized par anasal sinuses are clear. Soft tissues without significant abnormality. IMPRESSION: 1. Right middle cerebral artery distribution encephalomalacia unchanged from 10/26/2016. No acute intracranial abnormality is seen.
== END 2017-01-04 19:35 | disposition home or self-care (01) ==
LOC: ED 18:25
DX: G43.909 Migraine, unspecified, not intractable, without status migrainosus (principal)
CPT/HCPCS: 96372; 99283

== ENCOUNTER 2017-01-07 19:19 | Emergency (ER) ==
[2017-01-07 19:34] VITALS: BP 116/77; TEMP 97.6
[2017-01-07] MEDS ORDERED: TORADOL IM STA (19:38)
[2017-01-07] MEDS ORDERED: PHENERGAN 25 MG/ML VIAL IM STA (19:38)
--- NOTE | 2017-01-07 19:41 | ED.PDOC ---
General ED Provider: Dr. DARLENE BOWDEN-ER Chief Complaint: Headache Stated Complaint: ryanne got a migraine--i had an mri today--its just like the usual migraines i have Time Seen by Physician: 19:30 Mode of Arrival: Walk-In Information Source: Patient Exam Limitations: No limitations Primary Care Provider: CONNIE ALDRIDGE Nursing and Triage Documentation Reviewed and Agree: Yes Neurological Complaint Exam - Headache Complaint/Exam Onset: Gradual Duration: several hours Symptoms Are: Still present Timing: Constant Episodes Lasting: Hours Worst Headache Ever: No Initial Severity: Mild Current Severity: Moderate Location: Diffuse Character: Reports: Dull, Throbbing, Typical headache, Migraine Aggravating: Reports: Bright lights Alleviating: Reports: None Associated Signs and Symptoms: Reports: Nausea. Denies: Dizziness, Seizure, Vomiting, Sinus pressure, Fever, Neck pain, Neck stiffness, Decreased LOC, Visual changes Related History: Reports: Similar episode. Denies: Recent trauma, Remote trauma Related Surgical History: Reports: None SAH Risk Factors: Denies: None Meningitis Risk Factors: Reports: None Temporal Arteritis Risk Factors: Reports: Female, Normal Head CT Within Last 12 Months: Yes Fundoscopic Exam: Present: Normal Findings Papilledema Present: No Temporal Artery Tenderness: Present: None Sinus Tenderness: Present: None TMJ Tenderness: Present: None Meningeal Signs Positive: No Pain on Passive Flexion-Positive Kernig's: No ROM Limited In: No Limitiations Focal Weakness: Present: None Focal Sensory Loss: Present: None Gait: Normal Nystagmus Present: No Gag Reflex Present: No [id number]: Normal Findings Romberg Test Positive: No Babinski Sign: Negative Right Heel to Toe Normal: Yes Differential Diagnoses: Migraine Review of Systems - Review Of Systems Constitutional: Reports: No symptoms Eyes: Reports: No symptoms Ears, Nose, Mouth, Throat: Reports: No symptoms Respiratory: Reports: No symptoms Cardiac: Reports: No symptoms GI: Reports: Nausea : Reports: No symptoms Musculoskeletal: Reports: No symptoms Skin: Reports: No symptoms Neurological: Reports: Headache Endocrine: Reports: No symptoms Hematologic/Lymphatic: Reports: No symptoms All Other Systems: Reviewed and Negative Past Medical History - Past Medical History Previously Healthy: No Endocrine: Reports: Hypothyroid Cardiovascular: Reports: Hypertension Respiratory: Reports: COPD Hematological: Reports: Anemia Gastrointestinal: Reports: GERD Genitourinary: Reports: None Neuro/Psych: Reports: TIA, Migraine, Anxiety, Depression, Other (CHRONIC HEADACHE) Musculoskeletal: Reports: Arthritis Cancer: Reports: Lung (NODULES ) Last Menstrual Period: hysterectomy Other Pertinent Past Medical History: Reynauds, Lupus, back pain, heart problems - Surgical History General Surgical History: Reports: Hysterectomy, Appendectomy, Cholecystectomy, Unknown - Family History Family History: Reports: Unknown - Social History Smoking Status: Current every day smoker, Light tobacco smoker Hx Substance Use: No Alcohol Screening: Occasionally Lives: With family Physical Exam - Physical Exam Appearance: Well-appearing, No pain distress, Well-nourished Ill-appearing: Mild Eyes: KE, EOMI, Conjunctiva clear ENT: Ears normal, Nose normal, Oropharynx normal Neck: Supple Respiratory: Airway patent Cardiovascular: RRR, Pulses normal, No rub, No murmur GI/: Soft, Nontender, No masses, Bowel sounds normal, No Organomegaly Musculoskeletal: Normal strength, ROM intact, No edema, No calf tenderness Skin: Warm, Dry, Normal color Neurological: Sensation intact, Motor intact, Reflexes intact, Cranial nerves intact, Alert, Oriented Psychiatric: Affect appropriate, Mood appropriate Re-Evaluation - Re-Evaluation Time of Re-Evaluation: 20:15 Status: Improved Vital Signs Stable: Yes Pain Level: 2 Appearance: NAD Lungs: Clear Skin: Warm and Dry Neuro: Alert and Oriented X3 CV: RRR Critical Care Note - Critical Care Note Total Time (mins): 0 Course - Course Vital Signs: Temp Pulse Resp BP Pulse Ox 01/07/17 19:26 97.6 F 88 20 116/77 98 Departure - Departure Time of Disposition: 19:41 Disposition: HOME SELF-CARE Discharge Problem: Migraine headache Qualifiers: Migraine type: unspecified Status migrainosus presence: without status migrainosus Intractability: not intractable Qualifier Code: (G43.909) Migraine, unspecified, not intractable, without status migrainosus Instructions: Migraine Headache (ED) Condition: Good Pt referred to PMD for follow-up: Yes Additional Instructions: f/u with neurology Allergies/Adverse Reactions: Allergies nicotine patch Adverse Reaction (Uncoded 01/07/17 19:35) Home Medications: Ambulatory Orders Levothyroxine Sodium [Tirosint] 75 mcg PO DAILY 12/09/12 Cyclobenzaprine HCl [Flexeril] 10 mg PO Q8HR 07/25/16 Aspirin [Ecotrin] 325 mg PO DAILY 10/25/16 Clonazepam [Klonopin] 1 mg PO TID PRN 10/25/16 Gabapentin 600 mg PO BID 10/25/16 Ibuprofen 800 mg PO TID 10/25/16 Ranitidine HCl [Zantac] 150 mg PO BIDAC 10/25/16 Tizanidine HCl 4 mg PO Q8HR 10/25/16 Amitriptyline HCl 50 mg PO BEDTIME 10/26/16 Hydrocodone/Acetaminophen [Hydrocodon-Acetaminoph 7.5-325] 1 tab PO Q6H Disposition Discussed With: Patient
== END 2017-01-07 20:14 | disposition home or self-care (01) ==
LOC: ED 19:19
DX: G43.909 Migraine, unspecified, not intractable, without status migrainosus (principal); F17.210 Nicotine dependence, cigarettes, uncomplicated
CPT/HCPCS: 96375; 99282

== ENCOUNTER 2017-02-10 19:59 | Emergency (ER) ==
[2017-02-10 20:04] VITALS: BP 121/71; TEMP 97.5; BMI 19.5
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
[2017-02-10] MEDS ORDERED: TORADOL IM STA (21:15)
[2017-02-10] MEDS ORDERED: NORFLEX IM STA (21:15)
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
== END 2017-02-10 21:35 | disposition home or self-care (01) ==
LOC: ED 19:59
DX: M54.2 Cervicalgia (principal); M54.5 Low back pain; R51 Headache; V89.2XXA Person injured in unspecified motor-vehicle accident, traffic, initial encounter; F17.210 Nicotine dependence, cigarettes, uncomplicated
CPT/HCPCS: 96372; 99282

== ENCOUNTER 2017-03-09 12:44 | Outpatient (CLI) ==
--- NOTE | 2017-03-09 14:39 | MRI ---
EXAM: MRI lumbar spine without IV contrast. DATE: 09 March 2017. HISTORY: Disc degeneration. TECHNIQUE: Sagittal and axial T1W and T2W sequences of the lumbar spine along with sagittal IR and c oronal T2W sequences were obtained using 1.2 Karol magnet. No IV contrast. COMPARISON: MRI L-spine 07/02/2016. CT L-spine [address] T-spine 10 February 2017. FINDINGS: There are five [id number] lumbar vertebra. At the thoracolumbar junction, there is a transitional vertebra with either hypoplastic ribs or unusual transverse processes. Recent CT T-sp ine demonstrates 11 thoracic vertebra with classic paired ribs followed by this transitional vertebra . In keeping with the nomenclature from previous studies, this transitional vertebra will be referre d to as T12. There is no lumbar scoliosis. A 2.5 mm anterior subluxation of L3 relative to L2, a 2.7 mm anterolis thesis of L4 relative to L3, a 3 mm anterolisthesis of L5 relative to L4 are similar to the June 2016 MRI. No other subluxation, acute fracture, osseous malignancy, or pars interarticularis defect is identified. Lumbar vertebra are normal in height. Anterior and lateral osteophytes are revealed at multiple lumbar levels. Minor L4-5 and moderate/marked L5-S1 disc space narrowing is redemonstrat ed. No sacral fracture or stress reaction is apparent. SI joints are unremarkable. Conus medullaris terminates at L1. Visible spinal cord is normal. No retroperitoneal lymphadenopathy, paraspinal mass, or aortic aneurysm is detected. Atherosclerotic plaques are present within the aortic wall and common iliac artery sr. Paraspinal musculature is symmetric bilaterally. Gallbladder is absent. Visible portions of the liver, spleen, adrenal glands and kidneys reveal no definitive neoplasm. Segmental analysis: T12-L1: Normal. L1-2: Small concentric disc bulge (asymmetrically prominent in the left foramen to far lateral regio n vs superimposed disc protrusion measuring 3 mm AP x 11 mm transverse), superimposed left paracentra l disc protrusion (2.8 x 6 mm), and minor facet arthropathy cause minor right and mild/moderate left foraminal stenosis. Left L2 nerve root contacts the disc bulge near the foramen. No central canal st enosis. L2-3: Minimal anterior subluxation of L3, small concentric disc bulge (with left foraminal annular f issure), and minor facet arthropathy cause mild left foraminal narrowing. No central canal stenosis. L3-4: Mild anterior subluxation of L3, moderate concentric disc bulge, mild bilateral facet arthropa thy, and mild ligamentum flavum hypertrophy cause moderate central canal stenosis, mild/moderate righ t foraminal stenoses, and moderate left foraminal stenosis. Left L3 nerve root contacts the disc bul ge near the lateral margin of the foramen. L4-5: Minor anterior subluxation of L5, moderate concentric disc bulge, superimposed midline disc ex trusion (5 mm AP x 11 mm transverse x 10 mm behind the L5 superior endplate) mild facet arthropathy a nd moderate ligamentum flavum hypertrophy cause severe central canal stenosis, moderate/marked right foraminal stenosis, and mild left foraminal stenosis. Right L4 nerve root contacts the disc bulge ne ar the lateral margin of the foramen. Disc extrusion contacts but does not definitively displace the left L5 descending nerve root. Disc bulge causes mild bilateral lateral recess stenosis. Small left facet effusion is present. L5-S1: Moderate concentric disc bulge, bilateral posterolateral spondylotic ridges at L5 and S1 endp lates, and minor facet arthropathy cause mild central canal stenosis, moderate right foraminal stenos is, and marked left foraminal stenosis. Each L5 nerve root contacts the disc bulge near the foramen. The disc bulge compresses the left S1 nerve root against the left facet. IMPRESSIONS: 1. L-spine moderate spondylosis, mild facet arthropathy, and multilevel DDD - - similar to June 2016. 2. Multilevel central canal stenosis (L3-4: Moderate. L4-5: Severe. L5-S1: Mild). 3. Multilevel foraminal stenosis. Left L3, right L4, both L5 nerve intact disc bulges/osteophytes ne ar the foramen, and may be sources for pain/radiculopathy. 4. L5-S1 disc bulge compresses the left S1 nerve root and may be a source for pain/radiculopathy. 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 6. Marked aortic and iliac artery atherosclerosis..
== END 2017-03-09 12:45 | disposition home or self-care (01) ==
LOC: RAD 12:44
PROVIDERS: ATTEND Family Medicine
DX: M51.36 Other intervertebral disc degeneration, lumbar region (principal)

== ENCOUNTER 2017-03-10 22:06 | Emergency (ER) ==
[2017-03-10 22:18] VITALS: BP 111/67; TEMP 97.6; BMI 19.8
[2017-03-10] MEDS ORDERED: PHENERGAN 25 MG/ML VIAL IM STA (22:25)
[2017-03-10] MEDS ORDERED: IMITREX SUBCUT STA (22:26)
--- NOTE | 2017-03-10 23:35 | ED.PDOC ---
General ED Provider: Dr. MUSA BERNSTEIN Chief Complaint: Headache Stated Complaint: Patient states she has a history of Migranes. Today she reports right sided headache with photophobia and nausea. Time Seen by Physician: 22:16 Information Source: Patient Exam Limitations: No limitations Primary Care Provider: CONNIE ALDRIDGE Nursing and Triage Documentation Reviewed and Agree: Yes Neurological Complaint Exam - Headache Complaint/Exam Onset: Gradual Duration: 1 day Symptoms Are: Still present Timing: Constant Worst Headache Ever: No Initial Severity: Severe Current Severity: Severe Location: Right, Frontal Character: Reports: Throbbing, Typical headache Aggravating: Reports: Bright lights Associated Signs and Symptoms: Reports: Nausea, Sinus pressure (chronic ). Denies: Dizziness, Seizure, Vomiting, Fever, Neck pain, Neck stiffness, Decreased LOC, Visual changes Related History: Reports: Similar episode Related Surgical History: Reports: None SAH Risk Factors: Reports: None Meningitis Risk Factors: Reports: None SDH Risk Factors: Reports: None Temporal Arteritis Risk Factors: Reports: Female Fundoscopic Exam: Present: Normal Findings Papilledema Present: No Temporal Artery Tenderness: Present: None Sinus Tenderness: Present: Maxillary, Frontal Glascow Coma Scale (see protocol): 15 Meningeal Signs Positive: No Pain on Passive Flexion-Positive Kernig's: No ROM Limited In: No Limitiations Focal Weakness: Present: None Focal Sensory Loss: Present: None Gait: Normal Nystagmus Present: No Gag Reflex Present: No [id number]: Normal Findings Babinski Sign: Negative Right, Negative Left Head Picture: 1 - headache Differential Diagnoses: Migraine, Tension Headache Review of Systems - Review Of Systems Constitutional: Reports: No symptoms Eyes: Reports: No symptoms Ears, Nose, Mouth, Throat: Reports: No symptoms Respiratory: Reports: No symptoms Cardiac: Reports: No symptoms GI: Reports: No symptoms : Reports: No symptoms Musculoskeletal: Reports: No symptoms Skin: Reports: No symptoms Neurological: Reports: Headache Endocrine: Reports: No symptoms Hematologic/Lymphatic: Reports: No symptoms All Other Systems: Reviewed and Negative Past Medical History - Past Medical History Previously Healthy: No Endocrine: Reports: Hypothyroid Cardiovascular: Reports: Hypertension Respiratory: Reports: COPD Hematological: Reports: Anemia Gastrointestinal: Reports: GERD Genitourinary: Reports: None Neuro/Psych: Reports: TIA, Migraine, Anxiety, Depression, Other (CHRONIC HEADACHE) Musculoskeletal: Reports: Arthritis Cancer: Reports: Lung (NODULES ) Last Menstrual Period: na Other Pertinent Past Medical History: Reynauds, Lupus, back pain, heart problems - Surgical History General Surgical History: Reports: Hysterectomy, Appendectomy, Cholecystectomy, Unknown - Family History Family History: Reports: Unknown - Social History Smoking Status: Current every day smoker, Light tobacco smoker Hx Substance Use: No Alcohol Screening: Occasionally - Immunizations Tetanus Shot up to Date: Yes Physical Exam - Physical Exam Appearance: Ill-appearing, Thin Pain Distress: Severe Eyes: KE, EOMI, Conjunctiva clear ENT: Ears normal, Nose normal, Oropharynx normal Neck: Supple Respiratory: Airway patent, Breath sounds clear, Breath sounds equal, Respirations nonlabored Cardiovascular: RRR, Pulses normal, No rub, No murmur GI/: Soft, Nontender, No masses, Bowel sounds normal, No Organomegaly Musculoskeletal: Normal strength, ROM intact, No edema, No calf tenderness Skin: Warm, Dry, Normal color Neurological: Sensation intact, Motor intact, Cranial nerves intact, Alert, Oriented Psychiatric: Anxious Re-Evaluation - Re-Evaluation Time of Re-Evaluation: 00:10 Status: Improved (with nauea better but still has headach of 7/10 ) Pain Level: 7/10 - Re-Evaluation Time of Re-Evaluation: 00:28 Status: Improved Pain Level: 2/10 after Stadol injection Appearance: NAD Critical Care Note - Critical Care Note Total Time (mins): 0 Course - Course Orders, Labs, Meds: Orders Category Date Time Status Butorphanol Tartrate [Stadol] MEDS 03/11/17 00:02 Discontinued 1 mg IM ONCE STA Promethazine HCl [Phenergan 25 mg/ml Vial] MEDS 03/10/17 22:25 Discontinued 25 mg IM ONCE STA Sumatriptan Succinate [Imitrex] MEDS 03/10/17 22:26 Discontinued 6 mg SUBCUT ONCE STA Medications Discontinued Medications Generic Name Dose Route Start Last Admin Trade Name Freq PRN Reason Stop Dose Admin Butorphanol Tartrate 1 mg 03/11/17 00:02 03/11/17 00:08 Stadol IM 03/11/17 00:03 1 mg ONCE STA Administration Promethazine HCl 25 mg 03/10/17 22:25 03/10/17 22:33 Phenergan 25 Mg/Ml Vial IM 03/10/17 22:26 25 mg ONCE STA Administration Sumatriptan Succinate 6 mg 03/10/17 22:26 03/10/17 22:36 Imitrex SUBCUT 03/10/17 22:27 6 mg ONCE STA Administration Vital Signs: Temp Pulse Resp BP Pulse Ox 03/10/17 22:09 97.6 F 83 20 111/67 100 Departure - Departure Time of Disposition: 00:30 Disposition: HOME SELF-CARE Discharge Problem: Headache Instructions: Migraine Headache (ED) Condition: Fair Pt referred to PMD for follow-up: Yes Additional Instructions: Continue home medications, Follow up with PCP in 3 days Allergies/Adverse Reactions: Allergies nicotine patch Adverse Reaction (Uncoded 02/10/17 20:05) Home Medications: Ambulatory Orders Levothyroxine Sodium [Tirosint] 75 mcg PO DAILY 12/09/12 Cyclobenzaprine HCl [Flexeril] 10 mg PO Q8HR 07/25/16 Aspirin [Ecotrin] 325 mg PO DAILY 10/25/16 Clonazepam [Klonopin] 1 mg PO TID PRN 10/25/16 Gabapentin 600 mg PO BID 10/25/16 Ranitidine HCl [Zantac] 150 mg PO BIDAC 10/25/16 Tizanidine HCl 4 mg PO Q8HR 10/25/16 Amitriptyline HCl 50 mg PO BEDTIME 10/26/16 Hydrocodone/Acetaminophen [Hydrocodon-Acetaminoph 7.5-325] 1 tab PO Q6H Disposition Discussed With: Patient
[2017-03-11] MEDS ORDERED: STADOL IM STA (00:02)
== END 2017-03-11 00:30 | disposition home or self-care (01) ==
LOC: ED 22:06
DX: R51 Headache (principal); F17.210 Nicotine dependence, cigarettes, uncomplicated
CPT/HCPCS: 96372; 99283

== ENCOUNTER 2017-03-14 17:53 | Outpatient (CLI) | END 2017-03-14 17:54 | disposition short-term general hospital (02) | LOC: AMBL 17:53 | PROVIDERS: ATTEND Internal Medicine | DX: R41.82 Altered mental status, unspecified (principal); T42.4X1A Poisoning by benzodiazepines, accidental (unintentional), initial encounter ==

== ENCOUNTER 2017-05-10 19:11 | Emergency (ER) ==
[2017-05-10 19:21] VITALS: BP 151/85; TEMP 98.8; BMI 19.1
--- NOTE | 2017-05-10 19:27 | ED.PDOC ---
General ED Provider: Dr. DARLENE BOWDEN-ER Chief Complaint: Shoulder Pain/Injury Stated Complaint: i moved something and felt something pop in my shoulder Time Seen by Physician: 19:25 Mode of Arrival: Walk-In Information Source: Patient Exam Limitations: No limitations Primary Care Provider: CONNIE ALDRIDGE Nursing and Triage Documentation Reviewed and Agree: Yes Reviewed sepsis parameters & appropriate labs ordered?: Yes System Inflammatory Response Syndrome: Not Applicable Sepsis Protocol: For patient's 13 years and over: Temp is 96.8 and below OR 101 and greater Pulse >90 BPM Resp >20/minute Acutely Altered Mental Status Are patient's symptoms suggestive of a new infection, such as: -Pneumonia -Skin, Soft Tissue -Endocarditis -UTI -Bone, Joint Infection -Implantable Device -Acute Abdominal Infection -Wound Infection -Meningitis -Blood Stream Catheter Infection -Unknown Musculoskeletal Complaint Exam - Shoulder Pain Complaint/Exam Mechanism of Injury: Reports: Trauma Onset/Duration: several hours Symptoms Are: Still present Timing: Constant Initial Severity: Mild Current Severity: Mild Location: Reports: Discrete Character: Reports: Dull, Aching Aggravating: Reports: Movement, Lifting, Flexion, Extension, Internal rotation, External rotation, Abduction Associated Signs and Symptoms: Denies: Swelling, Redness, Bruising, Fever, Weakness, Numbness, Tingling Non-Orthopedic Risk Factors: Reports: None DVT Risk Factors: Reports: None Septic Arthritis Risk Factors: Reports: None Related Surgical History: Reports: None Tenderness: Present: Proximal humerus, Rotator cuff muscles Limited Range of Motion: Present: Abduction, Adduction, Flexion, Extension, Internal rotation, External rotation, Rotator cuff muscles Differential Diagnoses: AC Seperation, Rotator Cuff Injury, Sprain, Strain Review of Systems - Review Of Systems Constitutional: Reports: No symptoms Eyes: Reports: No symptoms Ears, Nose, Mouth, Throat: Reports: No symptoms Respiratory: Reports: No symptoms Cardiac: Reports: No symptoms GI: Reports: No symptoms : Reports: No symptoms Musculoskeletal: Reports: Joint pain, Muscle pain. Denies: Neck pain Skin: Reports: No symptoms Neurological: Reports: No symptoms Endocrine: Reports: No symptoms Hematologic/Lymphatic: Reports: No symptoms All Other Systems: Reviewed and Negative Past Medical History - Past Medical History Previously Healthy: No Endocrine: Reports: Hypothyroid Cardiovascular: Reports: Hypertension Respiratory: Reports: COPD Hematological: Reports: Anemia Gastrointestinal: Reports: GERD Genitourinary: Reports: None Neuro/Psych: Reports: TIA, Migraine, Anxiety, Depression, Other (CHRONIC HEADACHE) Musculoskeletal: Reports: Arthritis Cancer: Reports: Lung (NODULES ) Last Menstrual Period: N/A Other Pertinent Past Medical History: Reynauds, Lupus, back pain, heart problems - Surgical History General Surgical History: Reports: Hysterectomy, Appendectomy, Cholecystectomy, Unknown - Family History Family History: Reports: Unknown - Social History Smoking Status: Current every day smoker, Light tobacco smoker Hx Substance Use: No Alcohol Screening: Occasionally - Immunizations Tetanus Shot up to Date: Yes Physical Exam - Physical Exam Appearance: Well-appearing Pain Distress: Moderate Eyes: KE ENT: Ears normal, Nose normal, Oropharynx normal Neck: Supple Respiratory: Airway patent, Breath sounds clear, Breath sounds equal, Respirations nonlabored Cardiovascular: RRR, Pulses normal, No rub, No murmur GI/: Soft, Nontender, No masses, Bowel sounds normal, No Organomegaly Musculoskeletal: Limited ROM Skin: Warm, Dry, Normal color Neurological: Sensation intact, Motor intact, Reflexes intact, Cranial nerves intact, Alert, Oriented Psychiatric: Affect appropriate, Mood appropriate Interpretation - Radiology Interpretation Radiology Interpretation By: ED Physician Radiology Results: Negative Critical Care Note - Critical Care Note Total Time (mins): 0 Course - Course Orders, Labs, Meds: Orders Category Date Time Status SHOULDER, RIGHT MIN 2V Stat RADS 05/10/17 19:22 Ordered Vital Signs: Temp Pulse Resp BP Pulse Ox 05/10/17 19:13 98.8 F 92 H 18 151/85 H 97 Departure - Departure Time of Disposition: 20:02 Disposition: HOME SELF-CARE Discharge Problem: Injury of shoulder region Instructions: Shoulder Sprain (ED) Condition: Fair Pt referred to PMD for follow-up: Yes Additional Instructions: norco 5mg q 6hrs prn pain #10--f/u with pcp Allergies/Adverse Reactions: Allergies nicotine patch Adverse Reaction (Uncoded 02/10/17 20:05) Home Medications: Ambulatory Orders Levothyroxine Sodium [Tirosint] 75 mcg PO DAILY 12/09/12 Cyclobenzaprine HCl [Flexeril] 10 mg PO Q8HR 07/25/16 Aspirin [Ecotrin] 325 mg PO DAILY 10/25/16 Clonazepam [Klonopin] 1 mg PO TID PRN 10/25/16 Gabapentin 600 mg PO BID 10/25/16 Ranitidine HCl [Zantac] 150 mg PO BIDAC 10/25/16 Tizanidine HCl 4 mg PO Q8HR 10/25/16 Amitriptyline HCl 50 mg PO BEDTIME 10/26/16 Hydrocodone/Acetaminophen [Hydrocodon-Acetaminoph 7.5-325] 1 tab PO Q6H Disposition Discussed With: Patient
--- NOTE | 2017-05-11 07:36 | DI ---
EXAM: RIGHT SHOULDER HISTORY: Shoulder injury, pain FINDINGS: Right shoulder three-view. Bone and joint structures are within normal limits. There is no joint dislocation or fracture identified. Bone density and soft tissues are unremarkable. IMPRESSION: Within normal limits.
== END 2017-05-10 20:09 | disposition home or self-care (01) ==
LOC: ED 19:11
DX: S49.91XA Unspecified injury of right shoulder and upper arm, initial encounter (principal); X50.9XXA Other and unspecified overexertion or strenuous movements or postures, initial encounter; F17.210 Nicotine dependence, cigarettes, uncomplicated
CPT/HCPCS: 99282

== ENCOUNTER 2017-07-02 20:38 | Emergency (ER) ==
[2017-07-02 20:55] VITALS: BP 120/72; TEMP 98.1; BMI 21.6
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
--- NOTE | 2017-07-03 09:51 | DI ---
EXAM: Three views of the right shoulder. History: Right shoulder pain. Comparison: Right shoulder radiograph 05/10/2017 Findings: No acute fracture or dislocation. Joint spaces are preserved. Atherosclerotic vascular c alcifications. Heart does appear enlarged and there is interstitial prominence seen within the lungs . Impression: 1. No acute osseous abnormality. 2. Probable mild cardiomegaly with interstitial thickening seen in the lungs could be due to interst itial edema or interstitial pneumonitis.
== END 2017-07-02 22:08 | disposition home or self-care (01) ==
LOC: ED 20:38
DX: M54.2 Cervicalgia (principal); S43.401A Unspecified sprain of right shoulder joint, initial encounter; F17.210 Nicotine dependence, cigarettes, uncomplicated; V89.2XXA Person injured in unspecified motor-vehicle accident, traffic, initial encounter
CPT/HCPCS: 99282

== ENCOUNTER 2017-07-10 09:54 | Outpatient (CLI) | END 2017-07-10 09:55 | disposition short-term general hospital (02) | LOC: AMBL 09:54 | PROVIDERS: ATTEND Internal Medicine | DX: R11.2 Nausea with vomiting, unspecified (principal); R14.0 Abdominal distension (gaseous); R52 Pain, unspecified; R00.0 Tachycardia, unspecified; R53.1 Weakness ==

== ENCOUNTER 2017-07-13 09:48 | Outpatient (CLI) ==
--- NOTE | 2017-07-13 11:35 | MRI ---
EXAM: MRI right shoulder without contrast. HISTORY: Right shoulder pain. No right shoulder surgery reported. Limited range of motion. TECHNIQUE: Using a local coil on a high field strength magnet multiplanar multisequence MRI was perf ormed of the right shoulder without intravenous or intra-articular gadolinium contrast. FINDINGS: I have reviewed the patient's three-view plain film examination right shoulder 07/02/2017 which within normal limit. A Type IV acromion. Prominent subacromial enthesopathy/keel spurring. There is thickening to the co racoacromial ligament/arch which is intact. Mild right acromioclavicular joint arthrosis with some c apsular/ligamentous hypertrophy. Deltoid musculature within normal limits signal intensity. Small a mount of free fluid subacromial/subdeltoid space. Muscle bulk of the rotator cuff shows no overt atrophy or acute muscle strain. Supraspinatus tendino sis. Articular as well as bursal sided fraying/shallow partial thickness tearing. Over the critical zone of more central supraspinatus tendon there is some focal thinning with overall loss of cuff thi ckness approximate 50%. No definitive full-thickness rotator cuff tear identified. Over the suprasp inatus/infraspinatus interval there is a tiny 7 mm slit-like area of insertional fissuring/rim rent t ear. Some bursal sided fraying with tendinosis posteriorly involving infraspinatus. Posterior infer ior intact teres minor tendon fibers. Anterior intact subscapularis tendon fibers. The long head of the biceps tendon shows intact fibers located in expected position within the bicipital groove and w ithin normal limits signal intensity and morphology. The right humeral head within normal limit in morphology and seated. No right glenohumeral joint susu tered subchondral bone marrow edema or bone erosions. Early right glenohumeral joint productive oste ophyte formation. Physiologic amount fluid right glenohumeral joint. Right glenoid labrum grossly i ntact on this non-arthrographic examination. The posterior right glenoid labrum is diminutive. Bone marrow signal heterogeneity over the right proximal humeral surgical neck may reflect some degree of stress reaction. IMPRESSION: Mild right acromioclavicular joint arthrosis. Supraspinatus tendinosis. Articular as well as bursal sided fraying/shallow partial thickness tearin g. Over the critical zone of more central supraspinatus tendon there is some focal thinning with ove rall loss of cuff thickness approximate 50%. No definitive full-thickness rotator cuff tear identifi ed. Small amount of free fluid subacromial/subdeltoid space may reflect an overlying degree bursitis and/or be sequelae of prior shoulder injection. Correlate clinically. 7 mm slit-like area of insertional fissuring/rim rent tear over the interval. Some bursal sided fray ing with tendinosis posteriorly involving infraspinatus. Early right glenohumeral joint productive osteophyte formation. Diminutive posterior right glenoid l abrum on this non-arthrographic examination.
== END 2017-07-13 09:49 | disposition home or self-care (01) ==
LOC: RAD 09:48
PROVIDERS: ATTEND Family Medicine
DX: M25.511 Pain in right shoulder (principal)

== ENCOUNTER 2017-07-14 09:57 | Outpatient (CLI) ==
--- NOTE | 2017-07-14 11:36 | CT ---
Exam: CT of the chest without intravenous contrast. Comparison: 10/26/2016. Reason for exam: Pulmonary nodule. FINDINGS: Image interpretation is limited by the lack of intravenous contrast administration. Parenchymal changes are seen consistent with chronic lung disease. The previously described pleural effusions are not seen on today's exam. Patchy airspace opacities are seen in the right middle and both lower lobes. Nodular densities are seen in the right middle lobe on axial image number 32 and axial image number 3 7. There are prominent appearing mediastinal lymph nodes measuring up to 1.2 cm incompletely evaluated w ithout intravenous contrast. No suspicious appearing osteoblastic or osteolytic lesions. Impression: 1. Patchy airspace opacities are seen in the right middle and both lower lobes. Imaging findings are consistent with inflammation and infection. Follow-up imaging is recommended to document resolution 2. Parenchymal changes consistent with chronic lung disease. 3. Nodular ground-glass opacities in the right middle lobe. Recommend follow up imaging to document stability. 4. Prominent appearing mediastinal lymph nodes incompletely characterize without intravenous contras t.
== END 2017-07-14 09:58 | disposition home or self-care (01) ==
LOC: RAD 09:57
PROVIDERS: ATTEND Family Medicine
DX: R91.1 Solitary pulmonary nodule (principal)

== ENCOUNTER 2017-09-08 08:32 | Outpatient (CLI) ==
--- NOTE | 2017-09-08 09:55 | US ---
EXAM: ULTRASOUND ABDOMEN LIMITED HISTORY: Elevated liver enzymes FINDINGS: Ultrasound abdomen, limited. Aragon-scale ultrasound and color Doppler was performed. Live r size was measured at about 8 cm, within normal limits. The liver parenchyma demonstrated normal son ographic appearance without evidence of intrahepatic biliary dilatation or focal lesion. Patent and h epatopedal main portal vein. Gallbladder has been removed. Common bile duct diameter was normal measuring up to 0.4 cm. The visu alized pancreas was within normal limits. No ascites. IMPRESSION: 1. Post cholecystectomy state with no common bile duct dilatation. 2. No discrete sonographic abnormality of the liver.
== END 2017-09-08 08:33 | disposition home or self-care (01) ==
LOC: RAD 08:32
PROVIDERS: ATTEND Family Medicine
DX: R74.8 Abnormal levels of other serum enzymes (principal)

== ENCOUNTER 2017-11-12 17:17 | Emergency (ER) ==
[2017-11-12 17:21] VITALS: BP 114/70; TEMP 99.4; BMI 20.7
--- NOTE | 2017-11-12 17:39 | ED.PDOC ---
General ED Provider: Dr. MUSA BERNSTEIN Chief Complaint: Fall Stated Complaint: Patient states that she fell today twisted left ankle. has pain when she bares weight Time Seen by Physician: 17:38 Mode of Arrival: Walk-In Information Source: Patient Primary Care Provider: CONNIE ALDRIDGE Nursing and Triage Documentation Reviewed and Agree: Yes Does patient meet sepsis criteria?: No System Inflammatory Response Syndrome: Not Applicable Sepsis Protocol: For patient's 13 years and over: Temp is 96.8 and below OR 101 and greater Pulse >90 BPM Resp >20/minute Acutely Altered Mental Status Are patient's symptoms suggestive of a new infection, such as: -Pneumonia -Skin, Soft Tissue -Endocarditis -UTI -Bone, Joint Infection -Implantable Device -Acute Abdominal Infection -Wound Infection -Meningitis -Blood Stream Catheter Infection -Unknown Musculoskeletal Complaint Exam - Ankle/Foot Complaint/Exam Location of Injury: Reports: Left, Ankle Mechanism of Injury: Reports: Trauma (twisting ) Onset/Duration: today Symptoms Are: Reports: Still present Onset of Pain: Reports: Immediate Initial Severity: Severe Current Severity: Moderate Location: Reports: Diffuse Character: Reports: Aching, Throbbing Alleviating: Reports: Rest, Position Aggravating: Reports: Movement, Weight bearing Able to Bear Weight: Yes Gout Risk Factors: Reports: None Related Surgical History: Reports: None Lower Extremity Findings: Present: Swelling Achilles Tendon Abnormality: No Tenderness: Present: Medial malleolus, Lateral malleolus Differential Diagnosis: Sprain, Strain Review of Systems - Review Of Systems Constitutional: Reports: No symptoms. Denies: Loss of appetite Musculoskeletal: Reports: Joint pain Neurological: Reports: Anxiety All Other Systems: Reviewed and Negative Past Medical History - Past Medical History Previously Healthy: No Endocrine: Reports: Hypothyroid Cardiovascular: Reports: Hypertension Respiratory: Reports: COPD Hematological: Reports: Anemia Gastrointestinal: Reports: GERD Genitourinary: Reports: None Neuro/Psych: Reports: TIA, Migraine, Anxiety, Depression, Other (CHRONIC HEADACHE) Musculoskeletal: Reports: Arthritis Cancer: Reports: Lung (NODULES ) Last Menstrual Period: HYSTERECTOMY Other Pertinent Past Medical History: Reynauds, Lupus, back pain, heart problems - Surgical History General Surgical History: Reports: Hysterectomy, Appendectomy, Cholecystectomy, Unknown - Family History Family History: Reports: Unknown - Social History Smoking Status: Current every day smoker, Light tobacco smoker Hx Substance Use: Yes (Marijuana) Alcohol Screening: Occasionally - Immunizations Tetanus Shot up to Date: Yes Physical Exam - Physical Exam Appearance: Ill-appearing Ill-appearing: Mild Pain Distress: Moderate Neck: Supple Respiratory: Airway patent Cardiovascular: RRR, Pulses normal, No rub, No murmur GI/: Soft, Nontender, No masses, Bowel sounds normal, No Organomegaly Skin: Warm, Dry Neurological: Alert, Oriented Psychiatric: Anxious Critical Care Note - Critical Care Note Total Time (mins): 0 Course - Course Orders, Labs, Meds: Orders Category Date Time Status ANKLE, LEFT MIN 3 VIEWS Stat RADS 11/12/17 17:37 Completed Vital Signs: Temp Pulse Resp BP Pulse Ox 11/12/17 17:18 99.4 F 102 H 18 114/70 98 Departure - Departure Time of Disposition: 19:17 Disposition: HOME SELF-CARE Discharge Problem: Ankle sprain Qualifiers: Encounter type: initial encounter Involved ligament of ankle: unspecified ligament Laterality: left Qualified Code(s): S93.402A - Sprain of unspecified ligament of left ankle, initial encounter Instructions: Ankle Sprain (ED) Condition: Stable Pt referred to PMD for follow-up: Yes IPMP verified?: No Additional Instructions: Follow up with PCP in 3 days Take home medications as prescribed Prescriptions: Ondansetron HCl [Zofran Tab] 4 mg PO Q8H PRN #14 tablet PRN Reason: Nausea / Vomiting Allergies/Adverse Reactions: Allergies nicotine patch Adverse Reaction (Uncoded 11/12/17 17:22) Rash Home Medications: Ambulatory Orders Levothyroxine Sodium [Tirosint] 75 mcg PO DAILY 12/09/12 Aspirin [Ecotrin] 325 mg PO DAILY 10/25/16 Clonazepam [Klonopin] 1 mg PO TID PRN 10/25/16 Gabapentin 600 mg PO BID 10/25/16 Ranitidine HCl [Zantac] 150 mg PO BIDAC 10/25/16 Tizanidine HCl 4 mg PO Q8HR 10/25/16 Amitriptyline HCl 50 mg PO BEDTIME 10/26/16 Hydrocodone/Acetaminophen [Hydrocodon-Acetaminoph 7.5-325] 1 tab PO Q6H PRN Ondansetron HCl [Zofran Tab] 4 mg PO Q8H PRN #14 tablet 11/12/17 Disposition Discussed With: Patient, Family
--- NOTE | 2017-11-12 20:38 | DI ---
EXAM: Three views of the left ankle. History: Left ankle pain and trauma. Findings: No acute fracture or dislocation. Osteopenia. Mild diffuse subcutaneous edema. Small sc lerotic lesion within the distal tibia is nonspecific but probably represents a bone island. Impression: No acute osseous abnormality
== END 2017-11-12 19:24 | disposition home or self-care (01) ==
LOC: ED 17:17
DX: S93.402A Sprain of unspecified ligament of left ankle, initial encounter (principal); W19.XXXA Unspecified fall, initial encounter; F17.210 Nicotine dependence, cigarettes, uncomplicated
CPT/HCPCS: 99282

== ENCOUNTER 2018-01-22 15:35 | Emergency (ER) ==
[2018-01-22 15:43] VITALS: BP 105/66; TEMP 98.2; BMI 20.4
--- NOTE | 2018-01-22 15:56 | ED.PDOC ---
General ED Provider: Dr. DARLENE BOWDEN-ER Chief Complaint: Fall Stated Complaint: i fell today--i hurt my shoulder and my tailbone--i have a tear in my shoulder Time Seen by Physician: 15:40 Mode of Arrival: Walk-In Information Source: Patient Exam Limitations: No limitations Primary Care Provider: CONNIE ALDRIDGE Nursing and Triage Documentation Reviewed and Agree: Yes Does patient meet sepsis criteria?: No System Inflammatory Response Syndrome: Not Applicable Sepsis Protocol: For patient's 13 years and over: Temp is 96.8 and below OR 101 and greater Pulse >90 BPM Resp >20/minute Acutely Altered Mental Status Are patient's symptoms suggestive of a new infection, such as: -Pneumonia -Skin, Soft Tissue -Endocarditis -UTI -Bone, Joint Infection -Implantable Device -Acute Abdominal Infection -Wound Infection -Meningitis -Blood Stream Catheter Infection -Unknown Musculoskeletal Complaint Exam - Hip/Pelvis Complaint/Exam Location of Pain: Reports: Pelvis Mechanism of Injury: Reports: Trauma Onset/Duration: today Symptoms Are: Still present Initial Severity: Mild Current Severity: Mild Location: Reports: Discrete Character: Reports: Dull, Aching, Spasmodic Aggravating: Reports: Movement Alleviating: Reports: None Associated Signs and Symptoms: Denies: Swelling, Redness, Bruising, Fever, Weakness, Dizziness, Syncope, Abdominal pain, Knee pain Able to Bear Weight: Yes Septic Arthritis Risk Factors: Reports: None Pelvis Palpation: Stable Tenderness: Present: Right, Left NV Bundle Intact Distal to Injury: Yes Differential Diagnoses: Arthritis, Bursitis, Contusion, Fracture, Sprain, Strain Review of Systems - Review Of Systems Constitutional: Reports: No symptoms Eyes: Reports: No symptoms Ears, Nose, Mouth, Throat: Reports: No symptoms Respiratory: Reports: No symptoms Cardiac: Reports: No symptoms GI: Reports: No symptoms : Reports: No symptoms Musculoskeletal: Reports: Back pain Skin: Reports: No symptoms Neurological: Reports: No symptoms Endocrine: Reports: No symptoms Hematologic/Lymphatic: Reports: No symptoms All Other Systems: Reviewed and Negative Past Medical History - Past Medical History Previously Healthy: No Endocrine: Reports: Hypothyroid Cardiovascular: Reports: Hypertension Respiratory: Reports: COPD Hematological: Reports: Anemia Gastrointestinal: Reports: GERD Genitourinary: Reports: None Neuro/Psych: Reports: TIA, Migraine, Anxiety, Depression, Other (CHRONIC HEADACHE) Musculoskeletal: Reports: Arthritis Cancer: Reports: Lung (NODULES ) Last Menstrual Period: hysterectomy Other Pertinent Past Medical History: Reynauds, Lupus, back pain, heart problems - Surgical History General Surgical History: Reports: Hysterectomy, Appendectomy, Cholecystectomy, Unknown - Family History Family History: Reports: Unknown - Social History Smoking Status: Current every day smoker, Light tobacco smoker Hx Substance Use: Yes (Marijuana) Alcohol Screening: None Physical Exam - Physical Exam Appearance: Well-appearing, No pain distress, Well-nourished Pain Distress: Mild Eyes: KE, EOMI, Conjunctiva clear ENT: Ears normal, Nose normal, Oropharynx normal Neck: Supple Respiratory: Airway patent, Breath sounds clear, Breath sounds equal, Respirations nonlabored Cardiovascular: RRR, Pulses normal, No rub, No murmur GI/: Soft, Nontender, No masses, Bowel sounds normal, No Organomegaly Musculoskeletal: Normal strength, No edema, No calf tenderness, Limited ROM Skin: Warm Neurological: Sensation intact Psychiatric: Affect appropriate, Mood appropriate Interpretation - Radiology Interpretation Radiology Interpretation By: Radiologist Radiology Results: Positive Exam Interpreted: CT Scan Critical Care Note - Critical Care Note Total Time (mins): 0 Course - Course Orders, Labs, Meds: Orders Category Date Time Status Ketorolac Tromethamine [Toradol] MEDS 01/22/18 17:10 Discontinued 60 mg IM ONCE STA CT LUMBAR SPINE W/O CONTRAST Stat RADS 01/22/18 15:[address] PELVIS W/O CONTRAST Stat RADS 01/22/18 15:41 Completed SHOULDER, RIGHT MIN 2V Stat RADS 01/22/18 15:41 Completed Medications Discontinued Medications Generic Name Dose Route Start Last Admin Trade Name Maranda PRN Reason Stop Dose Admin Ketorolac Tromethamine 60 mg 01/22/18 17:10 01/22/18 17:17 Toradol IM 01/22/18 17:11 60 mg ONCE STA Administration Vital Signs: Temp Pulse Resp BP Pulse Ox 01/22/18 15:36 98.2 F 87 20 105/66 95 Departure - Departure Time of Disposition: 16:57 Disposition: HOME SELF-CARE Discharge Problem: Lumbar transverse process fracture Qualifiers: Encounter type: initial encounter Fracture type: closed Qualified Code(s): S32.009A - Unspecified fracture of unspecified lumbar vertebra, initial encounter for closed fracture Instructions: Thoracolumbar Fracture (ED) Condition: Good Pt referred to PMD for follow-up: Yes IPMP verified?: No Additional Instructions: f/u guillermina pcp--she indicated she could not receive narcotics due to contract with another md Allergies/Adverse Reactions: Allergies nicotine patch Adverse Reaction (Uncoded 01/22/18 15:45) Rash Home Medications: Ambulatory Orders Levothyroxine Sodium [Tirosint] 75 mcg PO DAILY 12/09/12 Aspirin [Ecotrin] 325 mg PO DAILY 10/25/16 Clonazepam [Klonopin] 1 mg PO TID PRN 10/25/16 Ranitidine HCl [Zantac] 150 mg PO BIDAC 10/25/16 Tizanidine HCl 4 mg PO Q8HR 10/25/16 Amitriptyline HCl 50 mg PO BEDTIME 10/26/16 Hydrocodone/Acetaminophen [Hydrocodon-Acetaminoph 7.5-325] 1 tab PO Q6H PRN Ondansetron HCl [Zofran Tab] 4 mg PO Q8H PRN #14 tablet 11/12/17 Disposition Discussed With: Patient
--- NOTE | 2018-01-22 16:33 | DI ---
EXAM: Right shoulder, three view.. HISTORY: Right shoulder pain. Fall. COMPARISON: 07/02/2017 FINDINGS: Internal and external and scapular Y views of the right shoulder.There are no acute or hea ling fractures. There is no dislocation. There are no lytic or blastic lesions. No significant dege nerative changes are seen. Soft tissues are normal. The visualized portion of the right lung and ri ght ribs are normal. IMPRESSION: Normal right shoulder.
--- NOTE | 2018-01-22 16:38 | CT ---
EXAM: CT of the pelvis without contrast. HISTORY: Fall. COMPARISON: CT of the abdomen pelvis dated 10/21/2016. TECHNIQUE: Contiguous axial images were obtained through the bony pelvis. Sagittal and coronal refo rmats reviewed. No contrast. FINDINGS: There are no acute or healing fractures. There are no lytic or blastic lesions. There is mild joint narrowing and both hips. Disc narrowing osteophyte formation is seen in the lumbar spine. There are no acute abnormalities in the spine. Joint narrowing is seen in the sacroiliac joints bi laterally. No ankylosis is seen at this time. There is a large amount of stool throughout the colon . Aortic calcifications are seen. There is no free fluid the pelvis. The bladder is not well diste nded otherwise appears normal. The uterus and ovaries are not seen. There are surgical changes in t he right lower quadrant. IMPRESSION: 1. No acute fractures. 2. Mild osteoarthritis of the hips. 3. Degenerative changes of the spine. 4. Bilateral sacroiliitis.
--- NOTE | 2018-01-22 16:49 | CT ---
EXAM: CT lumbar spine without contrast HISTORY: Fall COMPARISON: 02/09/2017 TECHNIQUE: CT lumbar spine performed without intravenous contrast. Coronal and sagittal reformatted images obtained. FINDINGS: Vertebral bodies normal height. Nondisplaced fracture left L1 transverse process, acute o r subacute. Subacute etiology favored as there is suggestion of small callus formation. Chronic nonu nion fractures right L2, L3, L4 transverse process. Multilevel marginal osteophyte formation. Trace retrolisthesis of L1 on L2, L2 on L3, L4 on L5, L5 on S1. Sacroiliac joints intact with mild degener ative change. There is bibasilar interstitial prominence likely representing fibrosis. Visualized a paramjit normal in caliber. Moderate to severe atherosclerosis. Small hiatal hernia, incompletely image d. Patient status post cholecystectomy. T12-L1: No central canal or neural foraminal narrowing. L1-L2: Posterior disc osteophyte complex and facet arthrosis causing mild left neural foraminal narro wing. L2-L3: Posterior disc osteophyte complex and facet arthrosis causing mild central canal and mild bila teral neural foraminal narrowing. L3-L4: Posterior disc osteophyte complex and facet arthrosis causing moderate central canal and mode rate bilateral neural foraminal narrowing. L4-L5: Posterior disc osteophyte complex and facet arthrosis causing moderate to severe central angel l narrowing and severe right and moderate to severe left neural foraminal narrowing. L5-S1: Posterior disc and complex and facet arthrosis causing moderate to severe bilateral neural for aminal narrowing. IMPRESSION: 1. Nondisplaced fracture left L1 transverse process, acute or subacute. Subacute etiology favored. 2. Chronic nonunion fractures right L2, L3, L4 transverse process. 3. Chronic discogenic degenerative disease and facet arthrosis. Please see segmental analysis, noti ng multilevel central canal and neural foraminal narrowing. 4. Additional chronic and incidental findings as described.
[2018-01-22] MEDS ORDERED: TORADOL IM STA (17:10)
== END 2018-01-22 17:35 | disposition home or self-care (01) ==
LOC: ED 15:35
DX: S32.009A Unspecified fracture of unspecified lumbar vertebra, initial encounter for closed fracture (principal); S49.91XA Unspecified injury of right shoulder and upper arm, initial encounter; W19.XXXA Unspecified fall, initial encounter; F17.210 Nicotine dependence, cigarettes, uncomplicated
CPT/HCPCS: 96372; 99283

== ENCOUNTER 2018-02-14 19:24 | Emergency (ER) ==
[2018-02-14 19:29] VITALS: BP 116/77; TEMP 98; BMI 19.8
--- NOTE | 2018-02-14 19:40 | ED.PDOC ---
General ED Provider: Dr. UMSA BERNSTEIN Chief Complaint: Back Pain Stated Complaint: patient is a 57 year old female who comes to the ER with c/o lower back pain after sustaining a fall 2 days ago when she tripped. She had a fracture of the L1 last month and is trying to follow up with PCP and ortho on the 17 this month. She has been bearing weigth these last two days but states she has had increased pain. Time Seen by Physician: 19:36 Mode of Arrival: Walk-In Information Source: Patient Exam Limitations: No limitations Primary Care Provider: CONNIE ALDRIDGE Nursing and Triage Documentation Reviewed and Agree: Yes Does patient meet sepsis criteria?: No System Inflammatory Response Syndrome: Not Applicable Sepsis Protocol: For patient's 13 years and over: Temp is 96.8 and below OR 101 and greater Pulse >90 BPM Resp >20/minute Acutely Altered Mental Status Are patient's symptoms suggestive of a new infection, such as: -Pneumonia -Skin, Soft Tissue -Endocarditis -UTI -Bone, Joint Infection -Implantable Device -Acute Abdominal Infection -Wound Infection -Meningitis -Blood Stream Catheter Infection -Unknown Musculoskeletal Complaint Exam - Back Pain Complaint/Exam Mechanism of Injury: Reports: Trauma Onset/Duration: 2 days ago Symptoms Are: Still present Timing: Constant Initial Severity: Moderate Current Severity: Severe Location: Reports: Radiating Character: Reports: Aching, Throbbing Aggravating: Reports: Lifting, Walking Alleviating: Reports: None Associated Signs and Symptoms: Reports: Pain with weight bearing Related History: Reports: Similar episode (recent fall ) TAD Risk Factors: Reports: Smoking AAA Risk Factors: Reports: None, Smoking Cauda Equina Risk Factors: Reports: None Epidural Abcess Risk Factors: Reports: None Related Surgical History: Reports: None Focal Tenderness: No Paraspinal Muscle Tenderness: No Paraspinal Muscle Spasm: No Scoliosis: No Lordosis: No Kyphosis: No SLR Test: Right Negative, Left Positive Hip Motion Testing Pain: Right Negative, Left Negative Focal Weakness: Present: None Focal Sensory Loss: Present: None Gait: Present: Abnormal (due to pain ) Back Picture: 1 - Tenderness to palpation. Differential Diagnoses: Herniated Disk, Strain, Sprain Review of Systems - Review Of Systems Constitutional: Reports: No symptoms Eyes: Reports: No symptoms Ears, Nose, Mouth, Throat: Reports: No symptoms Respiratory: Reports: No symptoms Cardiac: Reports: No symptoms GI: Reports: No symptoms : Reports: No symptoms Musculoskeletal: Reports: Back pain Skin: Reports: No symptoms Neurological: Reports: No symptoms Endocrine: Reports: No symptoms Hematologic/Lymphatic: Reports: No symptoms All Other Systems: Reviewed and Negative Past Medical History - Past Medical History Previously Healthy: No Endocrine: Reports: Hypothyroid Cardiovascular: Reports: Hypertension Respiratory: Reports: COPD Hematological: Reports: Anemia Gastrointestinal: Reports: GERD Genitourinary: Reports: None Neuro/Psych: Reports: TIA, Migraine, Anxiety, Depression, Other (CHRONIC HEADACHE) Musculoskeletal: Reports: Arthritis Cancer: Reports: Lung (NODULES ) Last Menstrual Period: n/a Other Pertinent Past Medical History: Reynauds, Lupus, back pain, heart problems - Surgical History General Surgical History: Reports: Hysterectomy, Appendectomy, Cholecystectomy, Unknown - Family History Family History: Reports: Unknown - Social History Smoking Status: Current every day smoker, Light tobacco smoker Hx Substance Use: Yes (Marijuana) Alcohol Screening: None Physical Exam - Physical Exam Appearance: Thin Ill-appearing: Mild Pain Distress: Severe Respiratory: Airway patent, Breath sounds clear, Breath sounds equal, Respirations nonlabored Cardiovascular: RRR, Pulses normal, No rub, No murmur GI/: Soft, Nontender Musculoskeletal: No edema, Limited ROM (back and lower ext to striaght leg raising. ) Skin: Warm, Dry, Normal color Neurological: Sensation intact, Motor intact, Reflexes intact, Cranial nerves intact, Alert, Oriented Psychiatric: Anxious Interpretation - Radiology Interpretation Radiology Interpretation By: ED Physician Radiology Results: Negative Exam Interpreted: Other (Lumbar x rays ) Critical Care Note - Critical Care Note Total Time (mins): 0 Course - Course Orders, Labs, Meds: Orders Category Date Time Status Butorphanol Tartrate [Stadol] MEDS 02/14/18 20:52 Stat 1 mg IM ONCE STA Ketorolac Tromethamine [Toradol] MEDS 02/14/18 19:41 Discontinued 60 mg IM ONCE STA LUMBAR SPINE, MIN 4 VIEWS Stat RADS 02/14/18 19:41 Completed Medications Discontinued Medications Generic Name Dose Route Start Last Admin Trade Name Freq PRN Reason Stop Dose Admin Butorphanol Tartrate 1 mg 02/14/18 20:52 Stadol IM 02/14/18 20:53 ONCE STA Ketorolac Tromethamine 60 mg 02/14/18 19:41 02/14/18 19:49 Toradol IM 02/14/18 19:42 60 mg ONCE STA Administration Vital Signs: Temp Pulse Resp BP Pulse Ox 02/14/18 19:24 98.0 F 94 H 20 116/77 96 Departure - Departure Time of Disposition: 21:30 Disposition: HOME SELF-CARE Discharge Problem: Backache Instructions: Low Back Strain (ED), Back Pain (ED) Condition: Stable Pt referred to PMD for follow-up: Yes IPMP verified?: No Additional Instructions: Follow up with PCP as scheduled. Allergies/Adverse Reactions: Allergies nicotine patch Adverse Reaction (Uncoded 01/22/18 15:45) Rash Home Medications: Ambulatory Orders Levothyroxine Sodium [Tirosint] 75 mcg PO DAILY 12/09/12 Aspirin [Ecotrin] 325 mg PO DAILY 10/25/16 Clonazepam [Klonopin] 1 mg PO TID PRN 10/25/16 Ranitidine HCl [Zantac] 150 mg PO BIDAC 10/25/16 Tizanidine HCl 4 mg PO Q8HR 10/25/16 Amitriptyline HCl 50 mg PO BEDTIME 10/26/16 Hydrocodone/Acetaminophen [Hydrocodon-Acetaminoph 7.5-325] 1 tab PO Q6H PRN Ondansetron HCl [Zofran Tab] 4 mg PO Q8H PRN #14 tablet 11/12/17
[2018-02-14] MEDS ORDERED: TORADOL IM STA (19:41)
[2018-02-14] MEDS ORDERED: STADOL IM STA (20:52)
--- NOTE | 2018-02-14 20:52 | DI ---
EXAM: Lumbar spine five views HISTORY: Injury COMPARISON: None. FINDINGS: Degenerate disc disease is noted L3-L4 through L5-S1 There is 3 mm retrolisthesis L2/L3, 4 mm retrolisthesis of L3/L4, 2 mm retrolisthesis L4/L5. There is no acute fracture or dislocation. Facet arthropathy is seen in the lower lumbar spine. Clips are noted the right upper quadrant from prior cholecystectomy. IMPRESSION: No acute findings
== END 2018-02-14 21:54 | disposition home or self-care (01) ==
LOC: ED 19:24
DX: M54.5 Low back pain (principal); W01.0XXA Fall on same level from slipping, tripping and stumbling without subsequent striking against object, initial encounter; F17.210 Nicotine dependence, cigarettes, uncomplicated
CPT/HCPCS: 96372; 99282

== ENCOUNTER 2018-06-13 12:44 | Outpatient (CLI) ==
[2018-04-25 07:56] VITALS: BMI 19.8
== END 2018-06-13 12:45 | disposition home or self-care (01) ==
LOC: RAD 12:44 → LAB 12:45
PROVIDERS: ATTEND Family Medicine
DX: R22.1 Localized swelling, mass and lump, neck (principal)
CPT/HCPCS: 36415; 82565

== ENCOUNTER 2018-06-13 14:28 | Inpatient (IN) ==
[2018-06-13 14:36] VITALS: BMI 19.7
--- NOTE | 2018-06-13 16:17 | ED.PDOC ---
General ED Provider: Dr. DARLENE WOODS Chief Complaint: Fall Stated Complaint: Patient initially presented to hospial for imaging of her neck for suspected nodule in Rt ant -submandibular region. She then requested evaluation in ER for Rt shoulder pain which occurred when she fell in her bathroom 2 days ago due to weakness and dizziness which occured when she attempted to get off the toliet. She fell forward and struck her rt shoulder against a cabinet. States she has become progressively weaker over past several weeks, experiencing dyspnea with activity. Denies changes in bowel habits or rectal bleeding. Pt admitted to ER for evaluation Time Seen by Physician: 15:30 Mode of Arrival: Wheelchair Information Source: Patient Exam Limitations: No limitations Nursing and Triage Documentation Reviewed and Agree: Yes Does patient meet sepsis criteria?: No System Inflammatory Response Syndrome: Not Applicable Sepsis Protocol: For patient's 13 years and over: Temp is 96.8 and below OR 101 and greater Pulse >90 BPM Resp >20/minute Acutely Altered Mental Status Are patient's symptoms suggestive of a new infection, such as: -Pneumonia -Skin, Soft Tissue -Endocarditis -UTI -Bone, Joint Infection -Implantable Device -Acute Abdominal Infection -Wound Infection -Meningitis -Blood Stream Catheter Infection -Unknown Musculoskeletal Complaint Exam - Shoulder Pain Complaint/Exam Mechanism of Injury: Reports: Trauma Onset/Duration: 2-3 days Symptoms Are: Still present Timing: Constant Initial Severity: Moderate Current Severity: Moderate Location: Reports: Diffuse Character: Reports: Sharp, Aching Alleviating: Reports: None Aggravating: Reports: Movement, Extension Associated Signs and Symptoms: Denies: Swelling, Redness, Bruising, Fever, Weakness, Numbness, Tingling Related History: Denies: Similar episode DVT Risk Factors: Reports: None Septic Arthritis Risk Factors: Reports: None Related Surgical History: Reports: None Shoulder Findings: Present: Swelling Tenderness: Present: AC joint Limited Range of Motion: Present: Adduction, Extension, Internal rotation, External rotation Differential Diagnoses: Contusion, Sprain, Strain Review of Systems - Review Of Systems Constitutional: Reports: Weakness Eyes: Reports: No symptoms Ears, Nose, Mouth, Throat: Reports: No symptoms Respiratory: Reports: No symptoms Cardiac: Reports: Chest pain GI: Reports: No symptoms : Reports: No symptoms Musculoskeletal: Reports: Joint pain Skin: Reports: No symptoms Neurological: Reports: No symptoms Endocrine: Reports: No symptoms Hematologic/Lymphatic: Reports: Anemia All Other Systems: Reviewed and Negative Past Medical History - Past Medical History Previously Healthy: No Endocrine: Reports: Hypothyroid, None Cardiovascular: Reports: Hypertension, None Respiratory: Reports: COPD, None Hematological: Reports: Anemia, None Gastrointestinal: Reports: GERD, None Genitourinary: Reports: None Neuro/Psych: Reports: TIA, None, Other, Migraine, Anxiety, Depression Musculoskeletal: Reports: None, Arthritis, Other (Lupus) Cancer: Reports: Lung, None Last Menstrual Period: hysterectomy Other Pertinent Past Medical History: Reynauds, Lupus, back pain, heart problems - Surgical History General Surgical History: Reports: Appendectomy, Hysterectomy, Cholecystectomy, Unknown, None - Family History Family History: Reports: None, Unknown - Social History Smoking Status: Light tobacco smoker, Current every day smoker Hx Substance Use: Yes (Marijuana) Alcohol Screening: None Physical Exam - Physical Exam Appearance: Ill-appearing, Thin (Skin pale) Ill-appearing: Moderate Pain Distress: None Eyes: KE, EOMI, Conjunctiva clear ENT: Ears normal, Nose normal, Oropharynx normal Neck: Supple Respiratory: Airway patent, Breath sounds clear, Breath sounds equal, Respirations nonlabored Cardiovascular: RRR, Pulses normal, No rub, No murmur GI/: Soft, Nontender, No masses, Bowel sounds normal, No Organomegaly Musculoskeletal: Normal strength, Limited ROM (Rt shoulder painful to exam) Skin: Warm, Dry, Pale Neurological: Sensation intact, Motor intact, Reflexes intact, Cranial nerves intact, Alert, Oriented Psychiatric: Affect appropriate, Mood appropriate Interpretation - Radiology Interpretation Radiology Interpretation By: Radiologist Radiology Results: No acute changes (Shoulder normal) Exam Interpreted: CXR (No rib fractures; LT lower lobe consolidatioh obscures hemidiaphragm and heart border), Portable CXR (Cardiomegaly/pleural effusion / rt basilar condolidatioh poss pneumonia), CT Scan (Neck; no acute abnorm. Myl interstitial edemaand bilat pleural effusions), Other (CT abdom/poss early partia SBO-doubtful/Mod Colonic Stool / Few dilated loops small bowel) Physician Notification - Case Discussed Physician Notified: Dr Regan Time of Notification: 17:50 (agreed to accept patient for admisson ) Course - Course Hematology/Chemistry: 06/13/18 13:00 06/13/18 13:00 Orders, Labs, Meds: Lab Review 06/13/18 06/13/18 06/13/18 13:00 13:00 13:00 WBC 6.93 RBC 2.40 L Hgb 5.3 L* Hct 19.5 L MCV 81.3 MCH 22.1 L MCHC 27.2 L RDW Coeff of Mitzy 23.2 H Plt Count 237 Immature Gran % (Auto) 0.3 Neut % (Auto) 68.8 Lymph % (Auto) 20.6 Robeson % (Auto) 9.1 Eos % (Auto) 0.9 Baso % (Auto) 0.3 Immature Gran # (Auto) 0.0 Neut # (Auto) 4.8 Lymph # (Auto) 1.4 Robeson # (Auto) 0.6 Eos # (Auto) 0.1 Baso # (Auto) 0.0 Hypochromasia 2+ Anisocytosis 2+ Sodium 141.9 Potassium 3.14 L Chloride 103.8 Carbon Dioxide 25.9 Anion Gap 15.34 BUN 13.1 Creatinine 0.83 Estimated GFR (MDRD) 70.00 BUN/Creatinine Ratio 15.78 Glucose 101.6 Calcium 8.58 Iron TIBC % Saturation Ferritin 32.10 Total Bilirubin 0.26 AST 25.2 ALT 13.8 Alkaline Phosphatase 94.6 Total Protein 6.87 Albumin 3.44 L Globulin 3.43 Albumin/Globulin Ratio 1.00 TSH Free T4 Blood Type Antibody Screen Antibody Identification Direct Antiglob Test 06/13/18 06/13/18 06/13/18 13:00 16:00 16:00 WBC RBC Hgb Hct MCV MCH MCHC RDW Coeff of Mitzy Plt Count Immature Gran % (Auto) Neut % (Auto) Lymph % (Auto) Robeson % (Auto) Eos % (Auto) Baso % (Auto) Immature Gran # (Auto) Neut # (Auto) Lymph # (Auto) Robeson # (Auto) Eos # (Auto) Baso # (Auto) Hypochromasia Anisocytosis Sodium Potassium Chloride Carbon Dioxide Anion Gap BUN Creatinine Estimated GFR (MDRD) BUN/Creatinine Ratio Glucose Calcium Iron 21.5 L TIBC 328 % Saturation 7 Ferritin Total Bilirubin AST ALT Alkaline Phosphatase Total Protein Albumin Globulin Albumin/Globulin Ratio TSH Free T4 0.95 Blood Type B POSITIVE Antibody Screen Positive Antibody Identification Pending Direct Antiglob Test Negative 06/13/18 16:00 WBC RBC Hgb Hct MCV MCH MCHC RDW Coeff of Mitzy Plt Count Immature Gran % (Auto) Neut % (Auto) Lymph % (Auto) Robeson % (Auto) Eos % (Auto) Baso % (Auto) Immature Gran # (Auto) Neut # (Auto) Lymph # (Auto) Robeson # (Auto) Eos # (Auto) Baso # (Auto) Hypochromasia Anisocytosis Sodium Potassium Chloride Carbon Dioxide Anion Gap BUN Creatinine Estimated GFR (MDRD) BUN/Creatinine Ratio Glucose Calcium Iron TIBC % Saturation Ferritin Total Bilirubin AST ALT Alkaline Phosphatase Total Protein Albumin Globulin Albumin/Globulin Ratio TSH 11.700 H Free T4 Blood Type Antibody Screen Antibody Identification Direct Antiglob Test Orders Category Date Time Status EKG-(ED ONLY) Stat CARDIO 06/13/18 16:42 Completed ACTIVITY .BR with BRP CARE 06/13/18 17:51 Active INTAKE & OUTPUT Q8HR CARE 06/13/18 17:50 Active NPO REMINDER: IMAGING ONCE CARE 06/13/18 16:12 Completed VITAL SIGNS Q4HR CARE 06/13/18 17:51 Active REGULAR DIET DIETARY 06/13/18 Dinner Ordered IV [ED IV/MEDIPORT/POWERPORT] .ONCE EMERGENCY 06/13/18 17:53 Active ANTIBODY IDENTIFICATION Stat LAB 06/13/18 16:00 Results CBC W/ AUTO DIFF DAILY@0600 LAB 06/14/18 06:00 Ordered CBC W/ AUTO DIFF DAILY@0600 LAB 06/15/18 06:00 Ordered CBC W/ AUTO DIFF Stat LAB 06/13/18 13:00 Completed CMP [COMPREHENSIVE METABOLIC PANEL] Stat LAB 06/13/18 13:00 Completed COMPREHENSIVE METABOLIC PANEL DAILY@0600 LAB 06/14/18 06:00 Ordered COMPREHENSIVE METABOLIC PANEL DAILY@0600 LAB 06/15/18 06:00 Ordered DIRECT CHRISTOFER Stat LAB 06/13/18 16:00 Results FERRITIN Stat LAB 06/13/18 13:00 Completed IRON AND TIBC Stat LAB 06/13/18 13:00 Completed RBC MORPHOLOGY Stat LAB 06/13/18 13:00 Completed TYPE AND SCREEN Stat LAB 06/13/18 16:00 Results 0.9 % Sodium Chloride [Saline Flush] MEDS 06/13/18 17:53 Ordered 1 syr IVF PRN PRN Potassium Chloride in 0.9%NaCl [Sodium Chloride 0.9%- MEDS 06/13/18 17:53 Active KCl 20 Meq] 1,000 ml IV 100 mls/hr RESUSCITATION STATUS Routine OTHERS 06/13/18 17:50 Ordered CHEST, 2 VIEWS PA & LAT Stat RADS 06/13/18 16:[address] ABDOMEN/PELVIS W CONTRAST Stat RADS 06/13/18 16:[address] SOFT TISSUE NECK W/CONTRAST Stat RADS 06/13/18 16:12 Completed RIBS, UNILATERAL RIGHT Stat RADS 06/13/18 16:06 Completed SHOULDER, RIGHT MIN 2V Stat RADS 06/13/18 16:06 Completed Medications Generic Name Dose Route Start Last Admin Trade Name Freq PRN Reason Stop Dose Admin Potassium Chloride/Sodium Chloride 1,000 mls @ 100 mls/hr 06/13/18 17:53 18:32 Sodium Chloride 0.9%-Kcl 20 Meq IV 06/14/18 03:52 100 mls/hr .Q10H STA Administration Nifedipine 30 mg 06/14/18 09:00 Procardia Xl PO DAILY ALBERT Non-Formulary Medication 40 mg 06/13/18 18:00 Atorvastatin Calcium [Lipitor] PO DAILY ALBERT Non-Formulary Medication 1 mg 06/13/18 21:00 Clonazepam [Klonopin] PO TID ALBERT Non-Formulary Medication 200 mg 06/13/18 21:00 Hydroxychloroquine Sulfate PO BID ALBERT Non-Formulary Medication 75 mcg 06/14/18 09:00 Levothyroxine Sodium [Tirosint] PO DAILY ALBERT Sodium Chloride 1 syr 06/13/18 17:53 06/13/18 18:32 Saline Flush IVF 1 syr PRN PRN Administration To flush IV Discontinued Medications Generic Name Dose Route Start Last Admin Trade Name Freq PRN Reason Stop Dose Admin Acetaminophen 650 mg 06/13/18 18:25 06/13/18 18:33 Tylenol PO 06/13/18 18:26 650 mg ONCE STA Administration Vital Signs: Temp Pulse Resp BP Pulse Ox 06/13/18 14:30 98.4 F 91 H 16 130/71 95 Departure - Departure Time of Disposition: 18:00 Disposition: ADMITTED INPATIENT Discharge Problem: Anemia, Iron deficiency Condition: Stable Allergies/Adverse Reactions: Allergies nicotine patch Adverse Reaction (Uncoded 06/13/18 14:38) Rash Home Medications: Ambulatory Orders Levothyroxine Sodium [Tirosint] 75 mcg PO DAILY 12/09/12 Aspirin [Ecotrin] 325 mg PO DAILY 10/25/16 Amitriptyline HCl 50 mg PO BEDTIME 10/26/16 Hydrocodone/Acetaminophen [Hydrocodon-Acetaminoph 7.5-325] 1 tab PO Q4HR PRN Ondansetron HCl [Zofran Tab] 4 mg PO Q8H PRN #14 tablet 11/12/17 Amitriptyline HCl [Elavil] 25 mg PO DAILY 04/24/18 Atorvastatin Calcium [Lipitor] 40 mg PO DAILY 04/24/18 Clonazepam [Klonopin] 1 mg PO TID 04/24/18 Diphenhydramine HCl [Benadryl] 25 mg PO BID 04/24/18 Hydroxychloroquine Sulfate [Plaquenil] 200 mg PO BID 04/24/18 Nifedipine [Procardia Xl] 30 mg PO DAILY 04/24/18 Ranitidine HCl [Zantac] 150 mg PO BIDAC 04/24/18
--- NOTE | 2018-06-13 16:45 | DI ---
EXAM: Chest two views HISTORY: Pain after fall COMPARISON: 10/25/2016 TECHNIQUE: Two views of the chest were performed FINDINGS: Small left pleural effusion with left basilar consolidation. There is also mild right bas ilar consolidation. No visible pneumothorax. Heart mildly enlarged. Mediastinal contour normal, no ting atherosclerosis. Interstitial prominence may represent interstitial edema. IMPRESSION: Small left pleural effusion with left greater than right basilar consolidation that like ly represents pneumonia. Additionally, there is cardiomegaly with interstitial prominence that may re present interstitial edema.
--- NOTE | 2018-06-13 16:46 | DI ---
EXAM: Right shoulder three view HISTORY: Pain COMPARISON: None FINDINGS: The bones are normal. The glenohumeral joint and acromioclavicular joint are normal. Plea se refer to separate report radiograph chest. IMPERSSION: Normal examination right shoulder.
--- NOTE | 2018-06-13 16:48 | DI ---
Exam: Four views of the right ribs. Comparison: Chest CT performed 07/14/2017. Reason for exam: Fall. Right-sided rib pain FINDINGS: Consolidation is seen in the left lung base. Image interpretation is limited by osseous d emineralization. No obvious right-sided rib fractures are seen. Impression: 1. No obvious displaced right-sided rib fractures. 2. Left lower lobe consolidation with obscuration of the hemidiaphragm and heart border.
--- NOTE | 2018-06-13 17:13 | CT ---
EXAM: CT of the abdomen pelvis with contrast History: Abdominal pain and vomiting, anemia, right neck swelling. Comparison: CT abdomen pelvis 10/21/2016 Technique: Multiplanar CT images through the abdomen pelvis were obtained following administration o f IV contrast Findings: Moderate left greater than right bilateral pleural effusions. There is interlobular septa l thickening at the lung bases and bibasilar lung infiltrates. No acute osseous abnormalities. Mode rate to severe degenerative changes within the lower lumbar spine. Status post cholecystectomy. No focal liver or splenic lesions. Atherosclerotic vascular calcificat ions. Pancreas is within normal limits. Adrenal glands are unremarkable. No renal masses. No hydr onephrosis. Fluid seen in the stomach with prominent gastric folds. There are a few borderline dila dejuan loops of small bowel seen within the lower abdomen pelvis. The appendix is normal. Fluid is see n within the right side of the colon. Moderate colonic stool. No free air and no ascites. No bladd er wall thickening. No perirectal inflammation. Uterus is not seen and likely has been surgically r emoved. No lymphadenopathy. Impression: 1. A few borderline dilated loops of small bowel within the lower abdomen and pelvis probably relate d to ileus or enteritis. Early partial small bowel obstruction is considered less likely but not exc luded. 2. Moderate colonic stool. 3. Moderate bilateral pleural effusions with suggestion of interstitial edema within the lungs.
--- NOTE | 2018-06-13 17:21 | CT ---
EXAM: CT of the soft tissue neck with contrast History: Right neck swelling. Comparison: Head CT 02/10/2017 Technique: Multiplanar CT images through the soft tissue neck were obtained following administration of IV contrast. Findings: Stable encephalomalacia within the right temporal lobe. The visualized paranasal sinuses and mastoid air cells are clear in general. No acute osseous abnormalities. Moderate to severe dege nerative disc disease within the lower cervical spine. No prevertebral soft tissue swelling. Epiglo ttis is not thickened. Orbits are intact. Parotid glands and submandibular glands are within normal limits. No discrete th yroid nodules identified by CT. No pathologically enlarged neck lymph nodes. No peritonsillar infla mmation. Bilateral pleural effusions and interstitial edema within the visualized upper lungs. Impression: 1. No acute findings within the soft tissue neck. 2. Interstitial edema and bilateral pleural effusions within the visualized lungs.
[2018-06-13] MEDS ORDERED: SODIUM CHLORIDE 0.9%-KCL 20 MEQ 1,000 ML IV STA (17:53)
[2018-06-13] MEDS ORDERED: NON-FORMULARY MEDICATION (Atorvastatin Calcium [Lipitor] 40 MG) PO SCH (18:00)
[2018-06-13] MEDS ORDERED: TYLENOL PO STA (18:25)
[2018-06-13] MEDS ORDERED: ALBUTEROL 0.083% NEB NEB PRN (19:44)
[2018-06-13 20:44] VITALS: BP 101/66; TEMP 98
[2018-06-13] MEDS ORDERED: NON-FORMULARY MEDICATION (Clonazepam [Klonopin] 1 MG) PO SCH (21:00)
[2018-06-13] MEDS ORDERED: NON-FORMULARY MEDICATION (Hydroxychloroquine Sulfate 200 MG) PO SCH (21:00)
--- NOTE | 2018-06-13 21:01 | PCM ---
- Chief Complaint Chief Complaint: Fatigue, shortness of breath, recurrent falls, chronic anemia - History of Present Illness History of Present Illness: 58 yo WF presented to ER today at 15:30 s/p Fall. Vitals in ER showed temp 98.4 , puls 91, rr 16 and BP 130/71 w/ O2 95% on RA. Initial history presented by Dr. Blood to me suggested she was sent her for CT scan of neck from provider DR. Alicea out of [place]. She had a lesion in her right anterior submandibular region but felt poorly and presented to ER for further evaluation of shoulder pain. She noted to ER that she fell in her bathroom 2 days ago while trying to elevate from commode. She felt dizzy, weakn and fell forward striking shoulder against a cabinet. She has progressively weakened over last several weeks, reported SOA, ANGELA w/ any activity. No bowel habit changes, no urinary changes, no freq, no hesitancy, no bleeding per rectum, no epistaxis, no other known injury other than frequent recent falls. REported fall 2-3 days ago pain constant rated moderate with diffuse pain throughout the right shoulder. Pain is sharp at times and aching at others, worsened by movement and extension. No Edema, no erythema, no ecchymoses per ER. NO fever, no numbness, tingling. Tenderness noted by ER at AC joint. Limited ROM to adduction, extension, internal/external rotation. DDx considered by Dr. Blood initially reported as contusion/sprain of shoulder. Review of history ROS noted weakness, SOA, ANGELA, joint pain, chronic anemia, hypothyroid, HTN, COPD , anemia, GERD, TIA, Migraine, Anxiety,depression, history of Lupus, Raynaud. History of appendectomy, hysterectomy, cholecystectomy. Light smoker of tobacco and marijuana. CXR completed in ER and she had no fractures. Lt lower lobe consolidation obscured hemidaphgram and heart border. Portable CXR cardiomegaly , pleural effusion, rt basilar consolidation possible pneumonia. CT neck no acute abnormality, pulmonary interstitial edema and bilateral pleural effusions. CT abd/pelvis, few borderline dilated loops of small bowel within lower abdomen and pelvis possibly related to ileus or enteritis. Less likely SBO. Moderate bilateral pleural effusions w/ suggestion of interstitial edema within lungs. Shoulder normal exam. CXR smal left pleural effusion w/ left greater than right basilar consolidation likely represents pneumonia. Cardiomegaly with interstitial prominence may be interstitial pneumonia. WBC 6.93, HGB 5.3 and critical, plt were 237. CBC showed hypochromasia, anisocytosis both 2+. MCV was 81.3 and normocytic. RBC 2.40 and low. MCH 22.1 , MCHC was 27.2. RDW 23.2 and elevated. Sodium 341.9, K+ 3.14, CL 103.8, BUN 13.1, Cr 0.83, glucose 101.5. I personally looked at the images on PACS and appreciated a LLL pleural effusion vs possible pneumonia on CXR and rib series. NO CT chest was done. I will opt to treat with cefdinir and doxy, I do not want to cause any potential cardiac rhythm changes with macrolide. She is a B Positive blood type antibody positive. Iron studies showed iron at 21.5, TIBC 328, %saturation of 7, Ferritin 32.10. Liver enzymes normal, GFR 70. Iron studies interpreted by me. Ferriton if 32.10 suggests mild iron deficiency with anemia, iron of 21.5 severely low, TIBC normal at 328 and %Saturation 7 suggests severe problem again. She is normocytic on her MCV at 81.3. TSH was found to be 11.700, she noted she was taking her Rx. Free T4 was okay at 0.95. Dr. Blood increased her from 75mcg to 100mcg. I will back that down to 88mcg to reduce chances of afib. Over last few months she has noted worsenign weakness, fatigue and SOA, ANGELA. She had blood work 3 months ago at [facility]. Admitted for pneumonia at that time. She is allergic to nicotine patches, no allergies to abx. I do not have any recent labs, imaging. She is breathing fine, NT BNP returned elevated. She noted that she has had a few MT. No leg swelling issues over last 2-4 weeks. No history of drug injection, did admit to smoking marijuana. The patient has pain in right shoulder after fall, right hip after fall. Imaging of the shoulder reviewed and negative. She is talking in full sentences, needs to sit up else she has worsening GERD. Denied aspiration, denied choking. A lot of cough and dry throat. She has resumed iron PO last week as she was feeling week. BM yesterday and 3 days ago. She has been dizzy and started iron again in last few days. - Review of Systems Constitutional: weakness, fatigue, loss of appetite. No: fever, chills, sweats , other Eyes: blurred vision (chronic). No: double-vision, discharge, itching, pain, redness, photophobia, other Ears: No: pain, bleeding, drainage, ringing, hearing loss, other Nose: No: bleeding, congestion, discharge, other Throat: No: pain, swelling, voice change, other Mouth: other (dry mouth). No: bleeding, pain, swelling Respiratory: cough, shortness of air, wheeze, pain with breathing. No: hemoptysis, other Cardiovascular: orthopnea. No: chest pain, left arm pain, diaphoresis, PND, edema, palpitations, syncope, other Gastrointestinal: nausea. No: abdominal pain, other, vomiting, diarrhea, melena , hematemesis, hematochezia, dysphagia, constipation Genitourinary: No: dysuria, hematuria, frequency, incontinence, flank pain, vaginal discharge, abnormal bleeding, pelvic pain, other Neurological: headache, dizziness, weakness, problems with walking, fainting. No: other, seizure, numbness, speech difficulty, tremor Musculoskeletal: pain (right shoulder and right hip. ) Skin: rash (anterior chest. ). No: pruritus, lacerations, wounds, bruising, other Immunology: No: hives, itching, frequent infections, difficulty healing, other Hematology: No: easy bruising, easy bleeding, swollen glands, other Endocrine: excessive thirst. No: weight changes, cold intolerance, heat intolerance, excessive hunger, polyuria, other Psychiatric: depression, anxiety. No: sleeplessness, hopelessness, suicidal, hallucinations, other Habits: tobacco use, substance use - Past Medical History Past Medical History: Hypothyroid, chronic anemia, HTN, COPD, anemia, GERD, TIA , migraine, anxiety, depression, luus, hysterectomy, raynaud, lupus, back pain, heart problems. - Past Surgical History Past Surgical History: Appendectomy, hysterectomy, cholecystectomy. Knee surgery. - Allergies Allergies/Adverse Reactions: Allergies Allergy/AdvReac Type Severity Reaction Status Date / Time nicotine patch AdvReac Rash Uncoded 06/13/18 14:38 - Medications Medications: Medications Generic Name Dose Route Start Last Admin Trade Name Freq PRN Reason Stop Dose Admin Albuterol Sulfate 1 vial 06/13/18 19:44 Albuterol 0.083% Neb NEB RTQ6H PRN Wheezing /congestion Potassium Chloride/Sodium Chloride 1,000 mls @ 100 mls/hr 06/13/18 17:53 18:32 Sodium Chloride 0.9%-Kcl 20 Meq IV 06/14/18 03:52 100 mls/hr .Q10H STA Administration Nifedipine 30 mg 06/14/18 09:00 Procardia Xl PO DAILY ALBERT Non-Formulary Medication 40 mg 06/13/18 18:00 Atorvastatin Calcium [Lipitor] PO DAILY ALBERT Non-Formulary Medication 1 mg 06/13/18 21:00 Clonazepam [Klonopin] PO TID ALBERT Non-Formulary Medication 200 mg 06/13/18 21:00 Hydroxychloroquine Sulfate PO BID ALBERT Non-Formulary Medication 100 mcg 06/14/18 09:00 Levothyroxine Sodium [Tirosint] PO DAILY ALBERT Sodium Chloride 1 syr 06/13/18 17:53 06/13/18 18:32 Saline Flush IVF 1 syr PRN PRN Administration To flush IV - Family History Past Family History: Mother alzheimers, Father leukemia. 3 children aged 36, 33 and 28. Healthy. DM in maternal grandfather. Breast cancer negative. Colon [place] negative. Uterine cancer negative. - Social History Past Social History: Light tobacco use. Marijuana use a few times daily for chronic DIA. Colonoscopy 2 years ago, normal per her report. Transportation problem. She is religious muslim. . She had LMP early . No reported vaginal bleeding since that point. She is not in relationship. Lives alone at present. Female friend close (not romantic). - Vital Signs Temperature: 98.0 F Pulse Rate: 87 Respiratory Rate: 18 Blood Pressure: 101/66 O2 Sat by Pulse Oximetry: 98 - Body Composition Height: 5 ft 7 in Weight: 126 lb Body Mass Index (BMI): 19.7 - Physical Examination HEENT: Constitutional: Appearance-No acute distress, Consistent with stated age. Orientation- Oriented x 3, alert Gait-Not observed. Build and Nutrition-[thin female, frail, borderline underweight, BMI 19.7] General- Patient is pleasant and cooperative with the interview and exam. Talkative, full sentences, good eye contact. Pale mouth/lips, face, extremities. Erythematous lacy rash along anterior chest "Lupus" and "Raynaud" per her report. No changes to her fingers , no cold fingers/toes. Integumentary: General-Anterior chest/cheek lacy blanching erythematous rash, NO malar rash. Buttock eval with Nurse scott without ulcers or lesions. Palpation- Normal skin moisture/turgor. Skin is warm to touch, appropriate. Capillary refill is normal bilateral Upper and lower extremity. Pallor. Head/Neck: Head- normocephalic and atraumatic. Neck- without visible/palpable lumps or pulsations. Palpation- No bony tenderness about head/neck along frontal, occipital, temporal, parietal, mastoid, jawline, zygoma, orbit or any other location. NO temporal artery tenderness. No TMJ tenderness. Neck Supple. Thyroid-No thyromegaly, no nodules Eye: Bilaterally PERRLA, EOMI. No discharge. Upper and lower eyelids are normal. Sclera/conjunctiva normal without discharge. Cornea is normal and clear. Lens is normal. Eyeball appears normal. No ciliary flushing, no conjunctival injection. ENMT: Pinna- normal without tenderness or erythema. External auditory canal Left- normal without erythema or discharge, no excessive cerumen. External auditory canal Right-normal without erythema or discharge, no excessive cerumen. TM left- Leonard/pearly, normal light reflex and anatomy TM Right- Leonard/ pearly, normal light reflex and anatomy Hearing Assessment-normal to conversational speech. Nose and sinus- No sinus tenderness along frontal/ maxillary region. External appearance normal and midline. Nares- bilateral quiet airflow, no discharge. Nasal mucosa- No bleeding noted and no ulcerations observed. [place], moist. Turbinates non boggy. Lips- normal color, moist without cracks/lesions Oral Cavity/Palate- hard/soft palate intact without lesions, oral mucosa pink and moist. Dentition assessed upper dentures. Tongue normal midline. Oropharynx- no pharyngeal erythema, Uvula midline. No post nasal drip. No exudate. Salivary glands- Non tender to palpation CHEST/LUNG: Inspection- symmetric chest wall no pectus deformity. Normal effort , no distress, no use of accessory muscles. Palpation- nontender sternum, ribline. No abnormal pulsations. Auscultation- Breath sounds diminished and coarse bibasilar region. Normal tracheal sounds, Coarse bronchial sounds overlying sternum, Bronchovessicular sounds coarse between scapulae posteriorly , Decreased and coarse vessicular breath sounds heard throughout periphery. Lungs are clear along upper vicente but crackling lower lungs today. Adventitious sounds- No wheezes, + rales, + rhonchi. CARDIOVASCULAR: Carotid artery- normal, no bruits or abnormal pulsations. Jugular vein- no pulsations. Palpation/Percussion- Normal PMI, no palpable thrill Auscultation- Regular rate and rhythm. No murmur noted in sitting, supine positions. Extremities- digital clubbing, no cyanosis, edema, increased warmth. She has clubbing and no edema today. ABDOMEN: Inspection- normal and no visible pulsations. Normal contour. Auscultation- Bowel sounds normal, no abdominal bruits. Palpation/Percussion- soft, non-tender, no rebound tenderness, no rigidity (guarding), no jar tenderness, no masses. Liver-no hepatomegaly, Spleen no splenomegaly, Hernias - none. Rectal not examined. Peripheral Vascular: Upper extremity Left- Normal temperature with pink nailbeds and no ulcerations. Upper extremity Right- Normal temperature with pink nailbeds and no ulcerations. Lower extremity- Normal temperature with pink nailbeds and no ulcerations. DP pulses 2+ bilaterally. Pedal hair reduced. Bunions bilaterally. Normal capillary refill. Edema- No edema. Musculoskeletal: Generalized-No generalized swelling or edema of extremities, no digital clubbing or cyanosis, neurovascularly intact all four extremities. Upper extremity- Symmetrical posture. No visible deformity. Normal sensation along medial and lateral upper extremity proximally and distally. NO tenderness overlying shoulder, lateral/medial epicondyle. Irrigation Equipment Mechanic 5/5 and strength 5/5 bilateral UE. Elbow palpated, no tenderness overlying olecranon. Normal supination, pronation to active/passive ROM and to resisted rotation. Bicep insertion/tricep insertion appear normal without obvious pathology. Rotator cuff evaluated and intact. Open can/empty can/reach across and lift off completed and within reasonable levels. Pain/grimace present but strength normal. Normal wrist ROM bilaterally. Normal hand movement, intrinsic muscles of hands normal. No tenderness to palpation of hands/wrists/elbows. Lower extremity- Hip: Not tender to palpation, no pain, no swelling, edema or erythema of surrounding tissue, normal strength and tone. Normal appearing hip ROM bilaterally without pain. Knee: Knee ROM normal. No tenderness overlying trochanters, no tenderness about patella, quad tendon, patellar tendon. No tenderness at tibial tuberosity. Ankle: normal ROM not tender to palpation along medial/lateral malleolus. Foot: Normal movement of toes, no tenderness bilateral feet/toes. Normal foot type. Spine/Ribs- No deformities, masses or tenderness, no known fractures, normal strength, Normal ROM. Normal stability No tenderness along C/T/L spine. Normal appearing ROM about spine. Neurological: General- Moves all 4 extremities symmetrically. Symmetrical face and body posture. Cranial nerves- individually evaluated II-XII and intact. PERRLA, Normal EOMI, visual/special senses appear intact, Face is symmetrical and normal sensation/movement, normal tongue, normal strength/posture of neck musculature. Reflexes- intact with DTR 2+ patellar, Achilles, bicep, brachial, tricep. Ankle clonus normal with 2 beats. Strength- 5/5 bilateral UE and LE. Soft touch- intact bilateral UE and LE. Temperature sensation- intact bilateral UE and LE. Neuropsych: Oriented- Person, place, time. (AAOx3), Mood/affect- normal and congruent. Able to articulate well. Speech-Normal speech, normal rate, normal tone, normal use of language, volume and coherence. Thought content- normal with ability to perform basic computations and apply abstract thought/reason. Associations- intact, no SI/HI, no hallucinations, delusions, obsessions. Judgment/insight- Appropriate. Memory-Recall intact, remote and recent memory intact. Knowledge- Age appropriate fund of knowledge, concentration and attention span normal. Lymphatic: Head/Neck- normal size and non tender to palpation. Axillary- normal size and non tender to palpation. Femoral and Inguinal- normal size and non tender to palpation. - Lab/Tests/Diagnostic Imaging Lab/Tests/Diagnostic Imaging: Laboratory Last Values WBC 6.14 K/ul (4.6-10.2) 06/13/18 22:00 RBC 2.15 10^6/ul (4.20-5.40) L 06/13/18 22:00 Hgb 4.7 g/dl (12.0-16.0) L* 06/13/18 22:00 Hct 17.6 % (37.0-47.0) L* 06/13/18 22:00 MCV 81.9 fl (81.0-99.0) 06/13/18 22:00 MCH 21.9 pg (27.0-31.0) L 06/13/18 22:00 MCHC 26.7 (31.8-35.4) L 06/13/18 22:00 RDW Coeff of Mitzy 23.0 % (11.6-14.8) H 06/13/18 22:00 Plt Count 202 10^3/uL (140-440) 06/13/18 22:00 Immature Gran % (Auto) 0.3 % (0.0-5.0) 06/13/18 13:00 Neut % (Auto) 68.8 06/13/18 13:00 Lymph % (Auto) 20.6 (10.0-50.0) 06/13/18 13:00 [place] % (Auto) 9.1 (0-10) 06/13/18 13:00 Eos % (Auto) 0.9 % (0.0-7.0) 06/13/18 13:00 Baso % (Auto) 0.3 % (0.0-3.0) 06/13/18 13:00 Reticulocyte % (Auto) 2.93 % 06/13/18 13:00 Immature Gran # (Auto) 0.0 (0.0-1.0) 06/13/18 13:00 Neut # (Auto) 4.8 K/ul (2.0-6.9) 06/13/18 13:00 Lymph # (Auto) 1.4 K/uL (0.60-3.4) 06/13/18 13:00 [place] # (Auto) 0.6 K/uL (0.4-2.0) 06/13/18 13:00 Eos # (Auto) 0.1 K/ul (0.0-0.7) 06/13/18 13:00 Baso # (Auto) 0.0 K/uL (0-0.2) 06/13/18 13:00 Hypochromasia 2+ (NOT PRESENT) 06/13/18 13:00 Anisocytosis 2+ (NOT PRESENT) 06/13/18 13:00 Absolute Retic 0.0633 06/13/18 13:00 Retic Hgb Equivalent 23.9 06/13/18 13:00 Sodium 141.9 mmol/L (134.5-145) 06/13/18 13:00 Potassium 3.14 mmol/L (3.5-5.1) L 06/13/18 13:00 Chloride 103.8 mmol/L (98-107) 06/13/18 13:00 Carbon Dioxide 25.9 mmol/L (22-30.0) 06/13/18 13:00 Anion Gap 15.34 06/13/18 13:00 BUN 13.1 mg/dL (7-17) 06/13/18 13:00 Creatinine 0.83 mg/dL (0.60-1.30) 06/13/18 13:00 Estimated GFR (MDRD) 70.00 mL/min 06/13/18 13:00 BUN/Creatinine Ratio 15.78 06/13/18 13:00 Glucose 101.6 mg/dL (74-106) 06/13/18 13:00 Calcium 8.58 mg/dL (8.4-10.2) 06/13/18 13:00 Iron 21.5 ug/dL (37-170) L 06/13/18 13:00 TIBC 328 ug/dL (261-497) 06/13/18 13:00 % Saturation 7 % 06/13/18 13:00 Ferritin 32.10 ng/mL (11.1-264.0) 06/13/18 13:00 Total Bilirubin 0.26 mg/dL (0.2-1.3) 06/13/18 13:00 AST 25.2 U/L (14-36) 06/13/18 13:00 ALT 13.8 U/L (0-35) 06/13/18 13:00 Alkaline Phosphatase 94.6 U/L (53-141) 06/13/18 13:00 NT-Pro-B Natriuret Pep 1670.000 pg/mL (0-124) H 06/13/18 13:00 Total Protein 6.87 g/dL (6.3-8.2) 06/13/18 13:00 Albumin 3.44 g/dL (3.5-5.0) L 06/13/18 13:00 Globulin 3.43 06/13/18 13:00 Albumin/Globulin Ratio 1.00 06/13/18 13:00 TSH 11.700 uIU/L (0.465-4.68) H 06/13/18 16:00 Free T4 0.95 ng/dL (0.78-2.19) 06/13/18 16:00 Blood Type B POSITIVE 06/13/18 16:00 Antibody Screen Positive 06/13/18 16:00 Direct Antiglob Test Negative 06/13/18 16:00 Soft tissue neck: No acute findings, intersittial edema dna bilateral pleural effusions within visualized lungs CT abd/pelvis: Borderline dilated loops of small bowel within lower abdomen and pelvis probably related to ileus or enteritis, early partial SBO not excluded and much less likely. Moderate colonic stool. Moderate bilateral pleural effusions with suggestive of interstitial edema within lungs. Right Shoulder normal CXR: Small Lt pleural effusion L>R basilar consolidation likely represents pneumonia (OPTED TO TREAT) Cardiomegaly, interstitial prominence may be interstitial edema. Lab called back at 22:38 and noted RBC morphology 2+ hypochromasia, stomatocytes , spherocytes, eliptocytes, fragmented RBC> - Assessment (1) Severe anemia Status: Acute Code(s): D64.9 - ANEMIA, UNSPECIFIED SNOMED Code(s): 038289172 (2) Pleural effusion Status: Acute Code(s): J94.8 - OTHER SPECIFIED PLEURAL CONDITIONS SNOMED Code(s): 74191083 (3) Community acquired pneumonia Status: Acute Code(s): J18.9 - PNEUMONIA, UNSPECIFIED ORGANISM SNOMED Code(s ): 572771350 (4) Elevated TSH Status: Acute Code(s): R94.6 - ABNORMAL RESULTS OF THYROID FUNCTION STUDIES SNOMED Code(s): 034896382 (5) Iron deficiency Status: Acute Code(s): E61.1 - IRON DEFICIENCY SNOMED Code(s): 77554562 (6) Chronic obstructive lung disease Status: Chronic Code(s): J44.9 - CHRONIC OBSTRUCTIVE PULMONARY DISEASE, UNSPECIFIED SNOMED Code(s): 68549457 (7) Essential hypertension Status: Chronic Code(s): I10 - ESSENTIAL (PRIMARY) HYPERTENSION SNOMED Code( s): 80177349 (8) Sprain of shoulder Status: Acute Code(s): S43.409A - UNSP SPRAIN OF UNSPECIFIED SHOULDER JOINT, INIT ENCNTR SNOMED Code(s): 5837639 (9) Weakness generalized Status: Acute Code(s): R53.1 - WEAKNESS SNOMED Code(s): 91333143 - Plan Plan: SEVERE Anemia (Acute on Chronic) with Iron deficiency: Severe anemia, worsening. She has been typed and crossed for 2 units and has abs that limit our ability to get her blood. [facility] [place]. I have added a few labs to eval for hemolysis, to eval for peripheral smear and to evaluate for production. She has hypocromic and anisocytosis with iron panel c/w iron deficiency anemia. At present we are waiting for blood 2 units to return, would ultimately like hematology input with the case. She reports no blood loss. She does have elevated TSH, which suggests under treated hypothyroidism and ultimately contributing to a decrease in blood cell production. The ddx is vast with normocytic anemia (Acute blood loss, iron deficiency anemia, Anemia of inflammatory disease, bone marrow suppression, chronic renal insufficiency, hypothyroidism, hypopituitary and hemolysis). I have requested labs for hemolysis, peripheral smear to look at cells to see if anything specific. Retic index is <3.0 and poor response. Chronic use of plaquenil, which can cause suppression. May need marrow biopsy, likely not as inpatient. Vitals are stable, anemia has dropped while here from 5.3 to 4.7. - Admit to inpatient due to severe, potential threat to life/function. - Await blood from blood bank - CBC in am - Haptoglobin added pending until 06/14/18 - peripheral smear added 06/14/18 - B12 and folate added - LDH added - Occult stool. - Telemetry Left Pleural effusion with underlying Chronic obstructive lung disease (Chronic ) and concern for Pneumonia: Did not meet SIRS criteria. No CT chest as contrast was given for abdominal CT. CXR completed, Ribs completed and she has left pleural effusion and possbility of pneumonia. Personally looked at imaging and she does have an effusion. Crackles on exam. Vitals stable, WBC stable, O2 sat stable. I will cover with Cefdinir 300 BID and doxy 100 BID x 5 days. - Cefdinir 300 PO BID x 5 days - Doxy 100 PO BID x 5 days - Albuterol q 4-6 hours pRN - O2 titrate 92-98%. Enteritis on CT: Ct e/o enteritis without e/o SBO at this time. No reported blood loss - FOBT when stool sample Chronic Degeneration of lumbar intervertebral disc (Chronic): Continue home pain meds. Monitor. Dyslipidemia (Chronic): Continue home medication statin. Essential hypertension (Chronic): Chronic problem. She is currently at goal and stable regarding her HTN. I will continue medications. Suspect essential HTN. Good BP control is encouraged with Goal BP based on JNC 8 guidelines: For the general population <60 yr old goal BP <140/90. With her degree of anemia, monitor closely. Gastroesophageal reflux disease (Chronic): ?Bleed is possible. No report of GI bleed, UA bleed, no epistaxis. No abdominal pain. - FOBT Elevated TSH: ER team increased her from 75mcg of levothyroxine to 100mcg. I backed this down to 88mcg. - New dose of levothyroxine at 88mcg daily. Hypokalemia: NS plus 20meq K+ at 100ml/hour given by me. I will replace the K+ with fluids. - Potassium to be replaced via IV fluid - CMP in am Maintenance fluids: Goal 97-100ml/hour based on maintenance. - Run Normal saline +20meq of K+ at 100ml/hour. DVT Prophy: DEO/SCD for now. Monitor for s/sx of bleeding. Diet: NPO after midnight. - CT chest w/ contrast in am. Activity: Bed alarm, up with assist, fall precaution. Disposition: This patient is not safe to go home. She will get 2 units of PRBC once they arrive from the blood bank. This represents a potential threat to life. She has had already had multiple falls. Currently no worse than contusions. She has a left pleural effusion of unknown timing, which could be acute or chronic. WE will further eval her anemia to eval for retic and for hemolysis. She appears to have iron deficiency. She will likely benefit greatly from the blood. Until then, she needs to be in the hospital to reduce falls and to evaluate the cause of this severe deficiency. During evaluation I contacted lab and they noted Hgb dropped further from 5.3 to 4.7. Numerous abnl , retic is abnl low. Concern with hemolysis, concern with values and inability to get her blood due to abs +. Talked with [facility]. Dr. Carcamo Hospitalist front end alignment specialist. Relayed all of the information and Dr. Carcamo wanted me to talk with the headhunter to see if they could get blood faster than us. Hematology feels that this is not the best place for her, she needs to be at a bank center and needs to get there urgently , they recommended [facility] as this patient needs hematology and blood bank support. Unknown rate of decline. [phone] [facility]. Now snowing outside and air evac is not possible. Below freezing temperatures currently outdoors and snowing limits transfer by air. [facility]. I have called [facility] in [place], patient gave me permission to call them. Talked with Thais 00:[address] Colon at 0030. History presented to them and there was concern about getting blood in [place]. The patient was accepted under OBS status per Dr. Colon. He asked about coags, not available, called lab and they are running them. Reviewed history, reviewed information and will set up transfer. >70 minutes spent with patient admission today 06/13/18.
[2018-06-13] MEDS ORDERED: NORCO 7.5-325 PO PRN (21:10)
[2018-06-13] MEDS ORDERED: ZOFRAN TAB PO PRN (21:10)
[2018-06-13] MEDS ORDERED: AMITRIPTYLINE HCL 50 MG PO SCH (21:15)
[2018-06-13] MEDS ORDERED: OMNICEF ONE (21:57)
[2018-06-13] MEDS ORDERED: KLONOPIN ONE (21:57)
[2018-06-13] MEDS ORDERED: DOXYCYCLINE HYCLATE ONE (21:57)
[2018-06-13] MEDS ORDERED: ELAVIL PO ONE (21:58)
[2018-06-13] MEDS ORDERED: LIPITOR ONE (21:59)
[2018-06-13] MEDS ORDERED: NORCO 7.5-325 ONE (22:00)
[2018-06-13] MEDS ORDERED: DOXYCYCLINE HYCLATE PO SCH (22:00)
[2018-06-13] MEDS ORDERED: OMNICEF PO SCH (22:00)
--- NOTE | 2018-06-14 00:52 | PCM.DC ---
Final Diagnosis: Severe Anemia (Acute on chronic): Iron deficiency (Chronic): COPD w/ Imaging findings consistent with Community acquired pneumonia (Acute) Elevated TSH (Acute) W/ history of hypothyroidism: ON levothyroxine 75mcg regularly , increased to 88mcg. Pleural effusion (Acute): Left sided Sprain of shoulder (Acute) Weakness generalized (Acute) Degeneration of lumbar intervertebral disc (Chronic) Dyslipidemia (Chronic) Essential hypertension (Chronic) Gastroesophageal reflux disease (Chronic) Major depressive disorder (Chronic) Osteoarthritis (Chronic) History of Overdose opiate Lupus/Raynaud on Plaquenil (Chronic) (1) Severe anemia Status: Acute Code(s): D64.9 - ANEMIA, UNSPECIFIED SNOMED Code(s): 635045869 (2) Pleural effusion Status: Acute Code(s): J94.8 - OTHER SPECIFIED PLEURAL CONDITIONS SNOMED Code(s): 10740250 (3) Community acquired pneumonia Status: Acute Code(s): J18.9 - PNEUMONIA, UNSPECIFIED ORGANISM SNOMED Code(s ): 448761314 (4) Elevated TSH Status: Acute Code(s): R94.6 - ABNORMAL RESULTS OF THYROID FUNCTION STUDIES SNOMED Code(s): 333178361 (5) Iron deficiency Status: Acute Code(s): E61.1 - IRON DEFICIENCY SNOMED Code(s): 15975644 (6) Chronic obstructive lung disease Status: Chronic Code(s): J44.9 - CHRONIC OBSTRUCTIVE PULMONARY DISEASE, UNSPECIFIED SNOMED Code(s): 78747407 (7) Essential hypertension Status: Chronic Code(s): I10 - ESSENTIAL (PRIMARY) HYPERTENSION SNOMED Code( s): 91512494 (8) Sprain of shoulder Status: Acute Code(s): S43.409A - UNSP SPRAIN OF UNSPECIFIED SHOULDER JOINT, INIT ENCNTR SNOMED Code(s): 9942868 (9) Weakness generalized Status: Acute Code(s): R53.1 - WEAKNESS SNOMED Code(s): 11218059 (10) Raynauds syndrome Status: Acute Code(s): I73.00 - RAYNAUD'S SYNDROME WITHOUT GANGRENE SNOMED Code(s): 769341240 Reason for Hospitalization: Severe Anemia, weakness, SOA. Prognosis at Discharge: Guarded: Transfer to local facility for blood transfusion. Antibodies in blood limit our ability to provide the service that she needs. Transfer to center with hematology and blood bank. Vital Signs Temp Pulse Resp BP Pulse Ox 06/14/18 00:44 98.0 F 87 18 101/66 98 06/13/18 22:00 98.1 F 93 H 18 100/63 95 06/13/18 19:42 98.0 F 87 18 98 06/13/18 18:00 98.0 F 87 18 101/66 98 06/13/18 14:30 98.4 F 91 H 16 130/71 95 Condition at Discharge: Stable vitals, Hemoglobin has decrease from 5.3 to 4.7. She appears clinically stable lying supine but falls if standing. Vitals normal on room air. Medications at Discharge: Ambulatory Orders Medication Instructions Recorded Amitriptyline HCl 50 mg PO BEDTIME 10/26/16 Hydrocodone/Acetaminophen 1 tab PO Q4HR PRN 10/26/16 [Hydrocodone-Acetamin 7.5-325] Ondansetron HCl [Zofran Tab] 4 mg PO Q8H PRN #14 tablet 11/12/17 Amitriptyline HCl [Elavil] 25 mg PO DAILY 04/24/18 Atorvastatin Calcium [Lipitor] 40 mg PO DAILY 04/24/18 Clonazepam [Klonopin] 1 mg PO TID 04/24/18 Diphenhydramine HCl [Benadryl] 25 mg PO BID 04/24/18 Hydroxychloroquine Sulfate 200 mg PO BID 04/24/18 [Plaquenil] Nifedipine [Procardia Xl] 30 mg PO DAILY 04/24/18 Ranitidine HCl [Zantac] 150 mg PO BIDAC 04/24/18 Cefdinir [Omnicef] 300 mg PO Q12HR capsule 06/14/18 Doxycycline Hyclate 100 mg PO Q12HR capsule 06/14/18 Levothyroxine Sodium [Tirosint] 88 mcg PO DAILY 06/14/18 Lab/Diagnostics: Laboratory Last Values WBC 6.14 K/ul (4.6-10.2) 06/13/18 22:00 RBC 2.15 10^6/ul (4.20-5.40) L 06/13/18 22:00 Hgb 4.7 g/dl (12.0-16.0) L* 06/13/18 22:00 Hct 17.6 % (37.0-47.0) L* 06/13/18 22:00 MCV 81.9 fl (81.0-99.0) 06/13/18 22:00 MCH 21.9 pg (27.0-31.0) L 06/13/18 22:00 MCHC 26.7 (31.8-35.4) L 06/13/18 22:00 RDW Coeff of Mitzy 23.0 % (11.6-14.8) H 06/13/18 22:00 Plt Count 202 10^3/uL (140-440) 06/13/18 22:00 Immature Gran % (Auto) 0.3 % (0.0-5.0) 06/13/18 13:00 Neut % (Auto) 68.8 06/13/18 13:00 Lymph % (Auto) 20.6 (10.0-50.0) 06/13/18 13:00 Pondera % (Auto) 9.1 (0-10) 06/13/18 13:00 Eos % (Auto) 0.9 % (0.0-7.0) 06/13/18 13:00 Baso % (Auto) 0.3 % (0.0-3.0) 06/13/18 13:00 Reticulocyte % (Auto) 2.93 % 06/13/18 13:00 Immature Gran # (Auto) 0.0 (0.0-1.0) 06/13/18 13:00 Neut # (Auto) 4.8 K/ul (2.0-6.9) 06/13/18 13:00 Lymph # (Auto) 1.4 K/uL (0.60-3.4) 06/13/18 13:00 [place]ondera # (Auto) 0.6 K/uL (0.4-2.0) 06/13/18 13:00 Eos # (Auto) 0.1 K/ul (0.0-0.7) 06/13/18 13:00 Baso # (Auto) 0.0 K/uL (0-0.2) 06/13/18 13:00 Neutrophils % (Manual) 49.0 % (42.2-75.2) 06/13/18 22:00 Lymphocytes % (Manual) 43.0 % (10.0-50.0) 06/13/18 22:00 Monocytes % (Manual) 5.0 % (0.0-10.0) 06/13/18 22:00 Eosinophils % (Manual) 4.0 % (0.0-5.0) 06/13/18 22:00 Hypochromasia 2+ (NOT PRESENT) 06/13/18 22:00 Anisocytosis Not present (NOT PRESENT) 06/13/18 22:00 Spherocytes 1+ (NOT PRESENT) 06/13/18 22:00 Ovalocytes 1+ (NOT PRESENT) 06/13/18 22:00 Stomatocytes 1+ (NOT PRESENT) 06/13/18 22:00 RBC Morph Comment Fragments 1+ 06/13/18 22:00 Absolute Retic 0.0633 06/13/18 13:00 Retic Hgb Equivalent 23.9 06/13/18 13:00 Sodium 141.9 mmol/L (134.5-145) 06/13/18 13:00 Potassium 3.14 mmol/L (3.5-5.1) L 06/13/18 13:00 Chloride 103.8 mmol/L (98-107) 06/13/18 13:00 Carbon Dioxide 25.9 mmol/L (22-30.0) 06/13/18 13:00 Anion Gap 15.34 06/13/18 13:00 BUN 13.1 mg/dL (7-17) 06/13/18 13:00 Creatinine 0.83 mg/dL (0.60-1.30) 06/13/18 13:00 Estimated GFR (MDRD) 70.00 mL/min 06/13/18 13:00 BUN/Creatinine Ratio 15.78 06/13/18 13:00 Glucose 101.6 mg/dL (74-106) 06/13/18 13:00 Calcium 8.58 mg/dL (8.4-10.2) 06/13/18 13:00 Iron 21.5 ug/dL (37-170) L 06/13/18 13:00 TIBC 328 ug/dL (261-497) 06/13/18 13:00 % Saturation 7 % 06/13/18 13:00 Ferritin 32.10 ng/mL (11.1-264.0) 06/13/18 13:00 Total Bilirubin 0.26 mg/dL (0.2-1.3) 06/13/18 13:00 AST 25.2 U/L (14-36) 06/13/18 13:00 ALT 13.8 U/L (0-35) 06/13/18 13:00 Alkaline Phosphatase 94.6 U/L (53-141) 06/13/18 13:00 NT-Pro-B Natriuret Pep 1670.000 pg/mL (0-124) H 06/13/18 13:00 Total Protein 6.87 g/dL (6.3-8.2) 06/13/18 13:00 Albumin 3.44 g/dL (3.5-5.0) L 06/13/18 13:00 Globulin 3.43 06/13/18 13:00 Albumin/Globulin Ratio 1.00 06/13/18 13:00 Vitamin B12 499 pg/mL (239-931) 06/13/18 21:56 Folate 12.10 ng/mL (2.76-) 06/13/18 21:56 TSH 11.700 uIU/L (0.465-4.68) H 06/13/18 16:00 Free T4 0.95 ng/dL (0.78-2.19) 06/13/18 16:00 Blood Type B POSITIVE 06/13/18 16:00 Antibody Screen Positive 06/13/18 16:00 Direct Antiglob Test Negative 06/13/18 16:00 Coags normal. 10.2 PT and 1.[address] Soft tissue neck: No acute findings, intersittial edema and bilateral pleural effusions within visualized lungs CT abd/pelvis: Borderline dilated loops of small bowel within lower abdomen and pelvis probably related to ileus or enteritis, early partial SBO not excluded and much less likely. Moderate colonic stool. Moderate bilateral pleural effusions with suggestive of interstitial edema within lungs. Right Shoulder XR: normal CXR: Small Lt pleural effusion L>R basilar consolidation likely represents pneumonia (OPTED TO TREAT) Cardiomegaly, interstitial prominence may be interstitial edema. CD HAS BEEN MADE TO ACCOMPANY PATIENT. Pending haptoglobin, LDH. Education Provided to Patient and Family: Talked with patient about anemia about need to see specialists regarding her chronic medical problems: Rheum, Hematology. Follow-ups: Transfer to [facility] accepted by Dr. Colon. Disposition: TSF OTHER Hospital Course: 58 yo WF presented to ER today at 15:30 s/p Fall at home reporting pain in shoulder and hip on right side. Vitals in ER showed temp 98.4, puls 91, rr 16 and BP 130/71 w/ O2 95% on RA. Initial history presented by Dr. Blood to me suggested she was sent her for CT scan of neck from provider DR. Kohler out of [place]. Presented to ER for further evaluation of weakness, SOA, shoulder pain. She noted to ER that she fell in her bathroom 2 days ago while trying to elevate from commode, thinks she fell today too. She felt dizzy, weak and fell forward striking shoulder against a cabinet. She has progressively weakened over last several weeks, reported SOA, ANGELA w/ any activity. No bowel habit changes, no urinary changes, no freq, no hesitancy, no bleeding per rectum, no epistaxis, no other known injury other than frequent recent falls. REported fall 2-3 days ago pain constant rated moderate with diffuse pain throughout the right shoulder. Pain is sharp at times and aching at others, worsened by movement and extension. No Edema, no erythema, no ecchymoses. NO fever, no numbness, tingling. Tenderness at AC joint. DDx considered by Dr. Blood initially reported as contusion/sprain of shoulder. Review of history ROS noted weakness, SOA, ANGELA, joint pain, chronic anemia, hypothyroid, HTN, COPD, anemia, GERD, TIA, Migraine, Anxiety,depression, history of Lupus, Raynaud. History of appendectomy, hysterectomy, cholecystectomy. Light smoker of tobacco and marijuana. CXR/rib series completed in ER and she had no fractures. Shoulder imaging negative. Chest with Lt lower lobe consolidation obscured hemidaphragm and heart border. Portable CXR cardiomegaly, pleural effusion, rt basilar consolidation possible pneumonia. CT neck no acute abnormality, pulmonary interstitial edema and bilateral pleural effusions. CT abd/pelvis, few borderline dilated loops of small bowel within lower abdomen and pelvis possibly related to ileus or enteritis. Less likely SBO (NORMAL BM yesterday and daily this week non bloody per her report). Moderate bilateral pleural effusions w/ suggestion of interstitial edema within lungs. Shoulder normal exam. Labs showed WBC 6.93, HGB 5.3 and critical, plt were 237. CBC showed hypochromasia, anisocytosis both 2+. MCV was 81.3 and normocytic. RBC 2.40 and low. MCH 22.1, MCHC was 27.2. RDW 23.2 and elevated. Sodium 341.9, K+ 3.14 , CL 103.8, BUN 13.1, Cr 0.83, glucose 101.5, bilirubing was normal. I personally looked at the images on PACS and appreciated a LLL pleural effusion vs possible pneumonia on CXR and rib series. NO CT chest was done through Er due to timing of the contrast for CT abd/pelvis. I opted to treat with cefdinir and doxy, nebs q 6 hours. She was found to be B Positive blood type and unfortunately was antibody positive. Iron studies showed iron at 21.5, TIBC 328, %saturation of 7, Ferritin 32.10. Liver enzymes normal, GFR 70. Iron studies interpreted by me. Ferritin 32.10 suggests mild iron deficiency with anemia, iron of 21.5 severely low, TIBC normal at 328 and %Saturation 7 suggests severe problem again. She is normocytic on her MCV at 81.3. TSH was found to be 11.700, she noted she was taking her Rx. Free T4 was okay at 0.95. Dr. Blood increased her from 75mcg to 100mcg. I backed this down to 88mcg to reduce chances of afib. Over last few months she has noted worsening weakness, fatigue and SOA, ANGELA. She had blood work 3 months ago at [facility], unavailable to me. No recent labs here. Admitted for ?pneumonia 3-5 months ago. She is allergic to nicotine patches, no allergies to abx. I do not have any recent labs, imaging. She is breathing fine, NT BNP returned elevated, she had no edema of BLE and no ascites. She noted that she has had a few MO. No leg swelling issues over last 2-4 weeks. No history of drug injection, did admit to smoking marijuana, history of opiate overdose. The patient has pain in right shoulder after fall, right hip after fall. Imaging of the shoulder reviewed and negative. She is talking in full sentences, needs to sit up else she has worsening GERD and SOA. Denied any aspiration, denied choking. A lot of cough and dry throat. She has resumed iron PO last week as she was feeling week. BM yesterday and daily over last 3 days. She has been dizzy and started iron again in last few days. I contacted our lab asked for manual eval and CBC repeated and Hgb dropped to 4.7. She had retic that was low, fragments of cells, spherocytes, stomatocytes , elliptocytes and hypochromasia supporting Fe Deficiency. She has been on plaquenil half-way. B12/folate returned normal. With drop in Hgb, pending haptoglobin/LDH, blood having to return from [place] and now at hgb of 4.7, I reached out to [facility] and talked with bone crusher hospitalist. They recommended I talk with hematology. Hematology noted that they could not get blood faster than us and recommended [facility]. Snowing outdoors sub freezing temps, single ambulance crew and inability to get her to [facility]. Talked with patient she agreed would be better for her. Called and talked with Dr. Colon who agreed to accept patient. Bilirubin is okay, remainder of hemolysis labs are not yet back. She has no bruising, no obvious source for loss of blood. Suspect some marrow suppression and chronic Fe deficiency anemia + hemolysis as well. needs hematology, needs blood transfusion, which I cannot get with any speed here. Severe anemia hgb 4.7. Transfer to [facility] [place], operated by [facility]. Contacted radiology. CD will be made for the patient to take take to . She has been started on abx for pleural effusion LLL w/ concern for pneumonia. Vitals at d/ c safe. Exam at d/c unchanged from admit. Day of D/C Physical examination Constitutional: Appearance-No acute distress, Consistent with stated age. Orientation- Oriented x 3, alert Gait-Not observed. Build and Nutrition-[thin female, frail, borderline underweight, BMI 19.7] General- Patient is pleasant and cooperative with the interview and exam. Talkative, full sentences, good eye contact. Pale mouth/lips, face, extremities. Erythematous lacy rash along anterior chest "Lupus" and "Raynaud" per her report. No changes to her fingers , no cold fingers/toes. Integumentary: General-Anterior chest/cheek lacy blanching erythematous rash, NO malar rash. Buttock eval with Nurse scott without ulcers or lesions. Palpation- Normal skin moisture/turgor. Skin is warm to touch, appropriate. Capillary refill is normal bilateral Upper and lower extremity. Pallor. Head/Neck: Head- normocephalic and atraumatic. Neck- without visible/palpable lumps or pulsations. Palpation- No bony tenderness about head/neck along frontal, occipital, temporal, parietal, mastoid, jawline, zygoma, orbit or any other location. NO temporal artery tenderness. No TMJ tenderness. Neck Supple. Thyroid-No thyromegaly, no nodules Eye: Bilaterally PERRLA, EOMI. No discharge. Upper and lower eyelids are normal. Sclera/conjunctiva normal without discharge. Cornea is normal and clear. Lens is normal. Eyeball appears normal. No ciliary flushing, no conjunctival injection. ENMT: Pinna- normal without tenderness or erythema. External auditory canal Left- normal without erythema or discharge, no excessive cerumen. External auditory canal Right-normal without erythema or discharge, no excessive cerumen. TM left- Leonard/pearly, normal light reflex and anatomy TM Right- Leonard/ pearly, normal light reflex and anatomy Hearing Assessment-normal to conversational speech. Nose and sinus- No sinus tenderness along frontal/ maxillary region. External appearance normal and midline. Nares- bilateral quiet airflow, no discharge. Nasal mucosa- No bleeding noted and no ulcerations observed. [place], moist. Turbinates non boggy. Lips- normal color, moist without cracks/lesions Oral Cavity/Palate- hard/soft palate intact without lesions, oral mucosa pink and moist. Dentition assessed upper dentures. Tongue normal midline. Oropharynx- no pharyngeal erythema, Uvula midline. No post nasal drip. No exudate. Salivary glands- Non tender to palpation CHEST/LUNG: Inspection- symmetric chest wall no pectus deformity. Normal effort , no distress, no use of accessory muscles. Palpation- nontender sternum, ribline. No abnormal pulsations. Auscultation- Breath sounds diminished and coarse bibasilar region. Normal tracheal sounds, Coarse bronchial sounds overlying sternum, Bronchovessicular sounds coarse between scapulae posteriorly , Decreased and coarse vessicular breath sounds heard throughout periphery. Lungs are clear along upper vicente but crackling lower lungs today. Adventitious sounds- No wheezes, + rales, + rhonchi. CARDIOVASCULAR: Carotid artery- normal, no bruits or abnormal pulsations. Jugular vein- no pulsations. Palpation/Percussion- Normal PMI, no palpable thrill Auscultation- Regular rate and rhythm. No murmur noted in sitting, supine positions. Extremities- digital clubbing, no cyanosis, edema, increased warmth. She has clubbing and no edema today. ABDOMEN: Inspection- normal and no visible pulsations. Normal contour. Auscultation- Bowel sounds normal, no abdominal bruits. Palpation/Percussion- soft, non-tender, no rebound tenderness, no rigidity (guarding), no jar tenderness, no masses. Liver-no hepatomegaly, Spleen no splenomegaly, Hernias - none. Rectal not examined. Peripheral Vascular: Upper extremity Left- Normal temperature with pink nailbeds and no ulcerations. Upper extremity Right- Normal temperature with pink nailbeds and no ulcerations. Lower extremity- Normal temperature with pink nailbeds and no ulcerations. DP pulses 2+ bilaterally. Pedal hair reduced. Bunions bilaterally. Normal capillary refill. Edema- No edema. Musculoskeletal: Generalized-No generalized swelling or edema of extremities, no digital clubbing or cyanosis, neurovascularly intact all four extremities. Upper extremity- Symmetrical posture. No visible deformity. Normal sensation along medial and lateral upper extremity proximally and distally. NO tenderness overlying shoulder, lateral/medial epicondyle. Buttonhole Maker 5/5 and strength 5/5 bilateral UE. Elbow palpated, no tenderness overlying olecranon. Normal supination, pronation to active/passive ROM and to resisted rotation. Bicep insertion/tricep insertion appear normal without obvious pathology. Tenderness at AC joint. Rotator cuff evaluated and intact. Open can/empty can/reach across and lift off completed and within reasonable levels. Pain/grimace present but strength normal. Normal wrist ROM bilaterally. Normal hand movement , intrinsic muscles of hands normal. No tenderness to palpation of hands/wrists/ elbows. Lower extremity- Hip: Not tender to palpation, no pain, no swelling, edema or erythema of surrounding tissue, normal strength and tone. Normal appearing hip ROM bilaterally without pain. Knee: Knee ROM normal. No tenderness overlying trochanters, no tenderness about patella, quad tendon, patellar tendon. No tenderness at tibial tuberosity. Ankle: normal ROM not tender to palpation along medial/lateral malleolus. Foot: Normal movement of toes, no tenderness bilateral feet/toes. Normal foot type. Spine/Ribs- No deformities, masses or tenderness, no known fractures, normal strength, Normal ROM. Normal stability No tenderness along C/T/L spine. Normal appearing ROM about spine. Neurological: General- Moves all 4 extremities symmetrically. Symmetrical face and body posture. Cranial nerves- individually evaluated II-XII and intact. PERRLA, Normal EOMI, visual/special senses appear intact, Face is symmetrical and normal sensation/movement, normal tongue, normal strength/posture of neck musculature. Reflexes- intact with DTR 2+ patellar, Achilles, bicep, brachial, tricep. Ankle clonus normal with 2 beats. Strength- 5/5 bilateral UE and LE. Soft touch- intact bilateral UE and LE. Temperature sensation- intact bilateral UE and LE. Neuropsych: Oriented- Person, place, time. (AAOx3), Mood/affect- normal and congruent. Able to articulate well. Speech-Normal speech, normal rate, normal tone, normal use of language, volume and coherence. Thought content- normal with ability to perform basic computations and apply abstract thought/reason. Associations- intact, no SI/HI, no hallucinations, delusions, obsessions. Judgment/insight- Appropriate. Memory-Recall intact, remote and recent memory intact. Knowledge- Age appropriate fund of knowledge, concentration and attention span normal. Lymphatic: Head/Neck- normal size and non tender to palpation. Axillary- normal size and non tender to palpation. Femoral and Inguinal- normal size and non tender to palpation. Plan: 1. Transfer Patient to [facility], vitals stable 2. Activity up with assist 3. Finish 5 day so of abx 4. Neb tx q 4-6 hours. 5. Needs transfusion of blood. 6. Up with assist 7. NPO, CT chest was ordered for am. Dx: Severe Anemia, Acute blood loss anemia >30 minutes spent in completion of d/c transfer.
[2018-06-14] MEDS ORDERED: NON-FORMULARY MEDICATION (Levothyroxine Sodium [Tirosint] 100 MCG) PO SCH (09:00)
[2018-06-14] MEDS ORDERED: NON-FORMULARY MEDICATION (Levothyroxine Sodium [Tirosint] 75 MCG) PO SCH (09:00)
[2018-06-14] MEDS ORDERED: LEVOTHYROXINE SODIUM 88 MCG PO SCH (09:00)
[2018-06-14] MEDS ORDERED: PROCARDIA XL PO SCH (09:00)
== END 2018-06-14 02:00 | disposition short-term general hospital (02) | DRG 640 ==
LOC: ED 14:28 → MEDSURG B 17:54
PROVIDERS: ADMIT Family Medicine; ATTEND Family Medicine
DX: E61.1 Iron deficiency (principal); J18.9 Pneumonia, unspecified organism; J94.8 Other specified pleural conditions; J44.9 Chronic obstructive pulmonary disease, unspecified; D64.9 Anemia, unspecified; I10 Essential (primary) hypertension; I73.00 Raynaud's syndrome without gangrene; S43.409A Unspecified sprain of unspecified shoulder joint, initial encounter; F17.210 Nicotine dependence, cigarettes, uncomplicated; R53.1 Weakness; R06.00 Dyspnea, unspecified; R07.9 Chest pain, unspecified; R94.6 Abnormal results of thyroid function studies; W18.30XA Fall on same level, unspecified, initial encounter; Z72.0 Tobacco use
CPT/HCPCS: 36415; 80053; 82565; 82607; 82728; 82746; 83010; 83540; 83550; 83615; 83880; 84439; 84443; 85007; 85008; 85025; 85027; 85045; 85610; 85730; 86850; 86880; 86900; 87040; 93005; 93010; 96360; 99223; 99239; 99284

== ENCOUNTER 2018-06-14 02:03 | Outpatient (CLI) ==
[2018-06-13 14:36] VITALS: BMI 19.7
== END 2018-06-14 02:04 | disposition home or self-care (01) ==
LOC: AMBL 02:03
PROVIDERS: ATTEND Family Medicine
DX: D64.9 Anemia, unspecified (principal); R53.1 Weakness; R06.02 Shortness of breath; R29.6 Repeated falls

== ENCOUNTER 2018-07-09 20:31 | Emergency (ER) ==
[2018-07-09 20:47] VITALS: BP 101/57; TEMP 97.4; BMI 19.5
--- NOTE | 2018-07-09 21:16 | ED.PDOC ---
General ED Provider: Dr. DARLENE GO MD Chief Complaint: Headache Stated Complaint: headache Time Seen by Physician: 21:05 Mode of Arrival: Walk-In Information Source: Patient Exam Limitations: No limitations Primary Care Provider: CONNIE ALDRIDGE Nursing and Triage Documentation Reviewed and Agree: Yes Does patient meet sepsis criteria?: No If yes, has appropriate treatment been initiated?: Yes System Inflammatory Response Syndrome: Not Applicable Sepsis Protocol: For patient's 13 years and over: Temp is 96.8 and below OR 101 and greater Pulse >90 BPM Resp >20/minute Acutely Altered Mental Status Are patient's symptoms suggestive of a new infection, such as: -Pneumonia -Skin, Soft Tissue -Endocarditis -UTI -Bone, Joint Infection -Implantable Device -Acute Abdominal Infection -Wound Infection -Meningitis -Blood Stream Catheter Infection -Unknown Review of Systems - Review Of Systems Constitutional: Reports: No symptoms, Other (migraine) Eyes: Reports: No symptoms Ears, Nose, Mouth, Throat: Reports: No symptoms Respiratory: Reports: No symptoms Cardiac: Reports: No symptoms GI: Reports: No symptoms : Reports: No symptoms Musculoskeletal: Reports: No symptoms Skin: Reports: No symptoms Neurological: Reports: Other (headache r parietal side) Endocrine: Reports: No symptoms Hematologic/Lymphatic: Reports: No symptoms All Other Systems: Reviewed and Negative Past Medical History - Past Medical History Previously Healthy: No Endocrine: Reports: Hypothyroid, None Cardiovascular: Reports: Hypertension, None Respiratory: Reports: COPD, None Hematological: Reports: Anemia, None Gastrointestinal: Reports: GERD, None Genitourinary: Reports: None Neuro/Psych: Reports: TIA, None, Other, Migraine, Anxiety, Depression Musculoskeletal: Reports: None, Arthritis, Other (Lupus) Cancer: Reports: Lung, None Last Menstrual Period: HAS HAD A HYSTERECTOMY Other Pertinent Past Medical History: Reynauds, Lupus, back pain, heart problems - Surgical History General Surgical History: Reports: Appendectomy, Hysterectomy, Cholecystectomy, Unknown, None - Family History Family History: Reports: None, Unknown - Social History Smoking Status: Current every day smoker, Heavy tobacco smoker Hx Substance Use: No Alcohol Screening: Occasionally - Immunizations Tetanus Shot up to Date: Yes Physical Exam - Physical Exam Appearance: Thin Ill-appearing: None Pain Distress: Moderate Eyes: KE, EOMI, Conjunctiva clear ENT: Ears normal, Nose normal, Oropharynx normal Neck: Supple Respiratory: Airway patent, Breath sounds clear, Breath sounds equal, Respirations nonlabored Cardiovascular: RRR, Pulses normal, No rub, No murmur GI/: Soft, Nontender, No masses, Bowel sounds normal, No Organomegaly Musculoskeletal: Normal strength, ROM intact, No edema, No calf tenderness Skin: Warm, Dry, Normal color Neurological: Sensation intact, Motor intact, Reflexes intact, Cranial nerves intact, Alert, Oriented Psychiatric: Affect appropriate, Mood appropriate Critical Care Note - Critical Care Note Total Time (mins): 0 Course - Course Vital Signs: Temp Pulse Resp BP Pulse Ox 07/09/18 20:32 97.4 F L 88 18 101/57 L 97 Departure - Departure Disposition: HOME SELF-CARE Discharge Problem: Migraine aura, persistent, intractable Instructions: Migraine Headache (ED) Condition: Good Pt referred to PMD for follow-up: Yes IPMP verified?: No Allergies/Adverse Reactions: Allergies nicotine patch Adverse Reaction (Uncoded 07/09/18 20:47) Rash Home Medications: Ambulatory Orders Amitriptyline HCl 50 mg PO BEDTIME 10/26/16 Hydrocodone/Acetaminophen [Hydrocodone-Acetamin 7.5-325] 1 tab PO Q4HR PRN 10/26 Ondansetron HCl [Zofran Tab] 4 mg PO Q8H PRN #14 tablet 11/12/17 Amitriptyline HCl [Elavil] 25 mg PO DAILY 04/24/18 Atorvastatin Calcium [Lipitor] 40 mg PO DAILY 04/24/18 Clonazepam [Klonopin] 1 mg PO TID 04/24/18 Diphenhydramine HCl [Benadryl] 25 mg PO BID 04/24/18 Hydroxychloroquine Sulfate [Plaquenil] 200 mg PO BID 04/24/18 Nifedipine [Procardia Xl] 30 mg PO DAILY 04/24/18 Ranitidine HCl [Zantac] 150 mg PO BIDAC 04/24/18 Levothyroxine Sodium [Tirosint] 88 mcg PO DAILY 06/14/18 Transfer Form Completed: No Disposition Discussed With: Patient
[2018-07-09] MEDS: TORADOL IM STA (21:31)
== END 2018-07-09 21:59 | disposition home or self-care (01) ==
LOC: ED 20:31
DX: R51 Headache (principal); G43.109 Migraine with aura, not intractable, without status migrainosus
CPT/HCPCS: 96372; 99282

== ENCOUNTER 2018-10-10 18:13 | Emergency (ER) ==
[2018-10-10 18:20] VITALS: BP 113/64; TEMP 99.7; BMI 19.3
--- NOTE | 2018-10-10 18:52 | ED.PDOC ---
General ED Provider: Dr. DARLENE WOODS Chief Complaint: Non-specific Complaint Stated Complaint: Muscle Spasm. Out of Muscle relaxant. Has been prescribed but has no transportaton to Pharmacy in [place] Time Seen by Physician: 18:40 Mode of Arrival: Walk-In Information Source: Patient Exam Limitations: No limitations Primary Care Provider: CONNIE ALDRIDGE Nursing and Triage Documentation Reviewed and Agree: Yes Does patient meet sepsis criteria?: No System Inflammatory Response Syndrome: Not Applicable Sepsis Protocol: For patient's 13 years and over: Temp is 96.8 and below OR 101 and greater Pulse >90 BPM Resp >20/minute Acutely Altered Mental Status Are patient's symptoms suggestive of a new infection, such as: -Pneumonia -Skin, Soft Tissue -Endocarditis -UTI -Bone, Joint Infection -Implantable Device -Acute Abdominal Infection -Wound Infection -Meningitis -Blood Stream Catheter Infection -Unknown Musculoskeletal Complaint Exam - Back Pain Complaint/Exam Mechanism of Injury: Reports: No known trauma Symptoms Are: Still present Timing: Intermittent Episodes Lasting: Minutes Initial Severity: Moderate Current Severity: Moderate Location: Reports: Discrete Character: Reports: Spasmodic Aggravating: Reports: Movements Alleviating: Reports: Rest (Muscle spasm) Associated Signs and Symptoms: Reports: Numbness, Tingling Related History: Reports: Similar episode TAD Risk Factors: Reports: None Cauda Equina Risk Factors: Reports: None Epidural Abcess Risk Factors: Reports: None Related Surgical History: Reports: None Focal Tenderness: Yes Paraspinal Muscle Tenderness: No Paraspinal Muscle Spasm: No Scoliosis: No Lordosis: No Kyphosis: No SLR Test: Right Negative, Left Negative Hip Motion Testing Pain: Right Negative, Left Negative Focal Weakness: Present: None Focal Sensory Loss: Present: None Gait: Present: Normal Differential Diagnoses: Other (lumbar degenerative disc disease) Review of Systems - Review Of Systems Constitutional: Reports: No symptoms, Weakness Eyes: Reports: No symptoms Ears, Nose, Mouth, Throat: Reports: No symptoms Respiratory: Reports: No symptoms Cardiac: Reports: No symptoms GI: Reports: No symptoms : Reports: No symptoms Musculoskeletal: Reports: Back pain, Muscle pain, Muscle stiffness Skin: Reports: No symptoms Neurological: Reports: No symptoms Endocrine: Reports: No symptoms Hematologic/Lymphatic: Reports: No symptoms All Other Systems: Reviewed and Negative Past Medical History - Past Medical History Previously Healthy: No Endocrine: Reports: Hypothyroid, None Cardiovascular: Reports: Hypertension, None Respiratory: Reports: COPD, None Hematological: Reports: Anemia, None Gastrointestinal: Reports: GERD, None Genitourinary: Reports: None Neuro/Psych: Reports: TIA, None, Other, Migraine, Anxiety, Depression Musculoskeletal: Reports: None, Arthritis, Other (Lupus/Raynauds) Cancer: Reports: Lung, None Last Menstrual Period: hysterectomy Other Pertinent Past Medical History: Reynauds, Lupus, back pain, heart problems - Surgical History General Surgical History: Reports: Appendectomy, Hysterectomy, Cholecystectomy, Unknown, None - Family History Family History: Reports: None, Unknown - Social History Smoking Status: Current every day smoker, Heavy tobacco smoker Hx Substance Use: No Alcohol Screening: Occasionally Physical Exam - Physical Exam Appearance: Ill-appearing, Thin Ill-appearing: Mild Pain Distress: Mild Eyes: KE, EOMI, Conjunctiva clear ENT: Ears normal, Nose normal, Oropharynx normal Neck: Supple Respiratory: Airway patent, Breath sounds clear, Breath sounds equal, Respirations nonlabored Cardiovascular: RRR, Pulses normal, No rub, No murmur GI/: Soft, Nontender, No masses, Bowel sounds normal, No Organomegaly Musculoskeletal: Normal strength, ROM intact, No edema, No calf tenderness Skin: Warm, Dry, Normal color Neurological: Sensation intact, Motor intact, Reflexes intact, Cranial nerves intact, Alert, Oriented Psychiatric: Affect appropriate, Mood appropriate Critical Care Note - Critical Care Note Total Time (mins): 0 Course - Course Vital Signs: Temp Pulse Resp BP Pulse Ox 10/10/18 18:13 99.7 F H 100 H 20 113/64 96 Departure - Departure Time of Disposition: 18:50 Disposition: HOME SELF-CARE Discharge Problem: Muscle spasm of both lower legs, Raynauds syndrome, Spasm of muscle of lower back Condition: Good Pt referred to PMD for follow-up: Yes IPMP verified?: No Additional Instructions: apply warm moist heat to areas of discomfort and muscular spasm See Dr Aldridge in follow up next week May fill temporary Prescription of Flexeril for relief of muscle spasm Allergies/Adverse Reactions: Allergies nicotine patch Adverse Reaction (Uncoded 10/10/18 18:22) Rash Home Medications: Ambulatory Orders Amitriptyline HCl 50 mg PO BEDTIME 10/26/16 Hydrocodone/Acetaminophen [Hydrocodone-Acetamin 7.5-325] 1 tab PO Q4HR PRN 10/26 Ondansetron HCl [Zofran Tab] 4 mg PO Q8H PRN #14 tablet 11/12/17 Amitriptyline HCl [Elavil] 25 mg PO DAILY 04/24/18 Atorvastatin Calcium [Lipitor] 40 mg PO DAILY 04/24/18 Clonazepam [Klonopin] 1 mg PO TID 04/24/18 Diphenhydramine HCl [Benadryl] 25 mg PO BID 04/24/18 Hydroxychloroquine Sulfate [Plaquenil] 200 mg PO BID 04/24/18 Nifedipine [Procardia Xl] 30 mg PO DAILY 04/24/18 Ranitidine HCl [Zantac] 150 mg PO BIDAC 04/24/18 Levothyroxine Sodium [Tirosint] 88 mcg PO DAILY 06/14/18 Cyclobenzaprine HCl [Flexeril] 5 mg PO BID PRN #20 tablet 10/10/18 Disposition Discussed With: Patient
== END 2018-10-10 19:09 | disposition home or self-care (01) ==
LOC: ED 18:13
DX: M62.838 Other muscle spasm (principal); M62.830 Muscle spasm of back; I73.00 Raynaud's syndrome without gangrene
CPT/HCPCS: 99282

== ENCOUNTER 2019-01-03 15:44 | Emergency (ER) ==
[2019-01-03 15:49] VITALS: BP 98/67; TEMP 96.6; BMI 17.8
--- NOTE | 2019-01-03 16:05 | ED.PDOC ---
General ED Provider: Dr. QI BANDA Chief Complaint: Fall Stated Complaint: fall out of pain meds generalized body pain no l.o.c Time Seen by Physician: 16:00 Mode of Arrival: Walk-In Information Source: Patient Exam Limitations: No limitations Primary Care Provider: CONNIE ALDRIDGE Nursing and Triage Documentation Reviewed and Agree: Yes Does patient meet sepsis criteria?: No If yes, has appropriate treatment been initiated?: No System Inflammatory Response Syndrome: Not Applicable Sepsis Protocol: For patient's 13 years and over: Temp is 96.8 and below OR 101 and greater Pulse >90 BPM Resp >20/minute Acutely Altered Mental Status Are patient's symptoms suggestive of a new infection, such as: -Pneumonia -Skin, Soft Tissue -Endocarditis -UTI -Bone, Joint Infection -Implantable Device -Acute Abdominal Infection -Wound Infection -Meningitis -Blood Stream Catheter Infection -Unknown Trauma/Injury Complaint Exam - Trauma Complaint/Exam Location of Pain or Injury: Reports: Back Mechanism of Injury: Reports: Fall Onset/Duration: 3 days Symptoms Are: Still present Timing of Treatment: Delayed Initial Severity: Mild Current Severity: Mild Character: Reports: Dull Aggravating: Reports: None Alleviating: Reports: None Associated Signs and Symptoms: Denies: LOC, Confusion, Memory loss, Lethargy, Vomiting, Bleeding, Bruising, Swelling, Extremity disuse, Painful respiration, Hoarseness, Dysphagia, Hemoptysis, Significant blood loss Nexus Low Risk Criteria: No post-midline CS tender, No evidence of intoxicat., No Altered LOC, No focal neuro deficit, No distracting injuries Glascow Coma Scale (see protocol): 15 Trauma Findings: Absent: [place] eyes, Hemotympanum, Nasal deformity, Dental tenderness, Dental injury, Dental malocclusion, Neck tenderness, Neck spasm, SubQ Air, Crepitus, Airway obstructed, Trachea displaced, Labored respirations, Decreased breath sounds, Muffled heart sounds, Weak pulses, Absent pulses, Abdominal distention, Pelvic tenderness, Pelvic instability, Back malalignment Skin Findings: Present: Normal findings Differential Diagnoses: Sprain, Strain Review of Systems - Review Of Systems Constitutional: Reports: No symptoms Eyes: Reports: No symptoms Ears, Nose, Mouth, Throat: Reports: No symptoms Respiratory: Reports: No symptoms Cardiac: Reports: No symptoms GI: Reports: No symptoms : Reports: No symptoms Musculoskeletal: Reports: Back pain Skin: Reports: No symptoms Neurological: Reports: No symptoms Endocrine: Reports: No symptoms Hematologic/Lymphatic: Reports: No symptoms All Other Systems: Reviewed and Negative Past Medical History - Past Medical History Previously Healthy: No Endocrine: Reports: Hypothyroid, None Cardiovascular: Reports: Hypertension, None Respiratory: Reports: COPD, None Hematological: Reports: Anemia, None Gastrointestinal: Reports: GERD, None Genitourinary: Reports: None Neuro/Psych: Reports: TIA, None, Other, Migraine, Anxiety, Depression Musculoskeletal: Reports: None, Arthritis, Other (Lupus/Raynauds) Cancer: Reports: Lung, None Last Menstrual Period: N/A Other Pertinent Past Medical History: Reynauds, Lupus, back pain, heart problems - Surgical History General Surgical History: Reports: Appendectomy, Hysterectomy, Cholecystectomy, Unknown, None - Family History Family History: Reports: None, Unknown - Social History Smoking Status: Current every day smoker, Heavy tobacco smoker Hx Substance Use: No Alcohol Screening: Occasionally Physical Exam - Physical Exam Appearance: Well-appearing, No pain distress, Well-nourished Eyes: KE, EOMI, Conjunctiva clear ENT: Ears normal, Nose normal, Oropharynx normal Respiratory: Airway patent, Breath sounds clear, Breath sounds equal, Respirations nonlabored Cardiovascular: RRR, Pulses normal, No rub, No murmur GI/: Soft, Nontender, No masses, Bowel sounds normal, No Organomegaly Musculoskeletal: Normal strength (no point tnder ness along C,T,L SPINE), ROM intact, No edema, No calf tenderness Skin: Warm, Dry, Normal color Neurological: Sensation intact, Motor intact, Reflexes intact, Cranial nerves intact, Alert, Oriented Psychiatric: Affect appropriate, Mood appropriate Critical Care Note - Critical Care Note Total Time (mins): 0 Course - Course Vital Signs: Temp Pulse Resp BP Pulse Ox 01/03/19 15:44 96.6 F L 96 H 18 98/67 98 Departure - Departure Time of Disposition: 16:04 Disposition: HOME SELF-CARE Discharge Problem: Encounter for medication refill Low back sprain Qualifiers: Encounter type: initial encounter Qualified Code(s): S33.5XXA - Sprain of ligaments of lumbar spine, initial encounter Instructions: Lower Back Exercises (ED), Back Pain (ED), Chronic Back Pain (DC) , Arthralgia (ED) Condition: Good Pt referred to PMD for follow-up: Yes IPMP verified?: No Allergies/Adverse Reactions: Allergies nicotine patch Adverse Reaction (Uncoded 01/03/19 15:56) Rash Home Medications: Ambulatory Orders Amitriptyline HCl 50 mg PO BEDTIME 10/26/16 Ondansetron HCl [Zofran Tab] 4 mg PO Q8H PRN #14 tablet 11/12/17 Amitriptyline HCl [Elavil] 25 mg PO DAILY 04/24/18 Atorvastatin Calcium [Lipitor] 40 mg PO DAILY 04/24/18 Diphenhydramine HCl [Benadryl] 25 mg PO BID 04/24/18 Nifedipine [Procardia Xl] 30 mg PO DAILY 04/24/18 Ranitidine HCl [Zantac] 150 mg PO BIDAC 04/24/18 Levothyroxine Sodium [Tirosint] 88 mcg PO DAILY 06/14/18 Promethazine HCl [Phenergan Tab] 25 mg PO Q12H #10 tablet 12/14/18 Triamcinolone Acetonide [Triamcinolone Acetonide 0.1% Cream] 30 gm TP BID #15 cream..g. 12/14/18 Cyclobenzaprine HCl [Flexeril] 10 mg PO TID PRN 01/03/19 Omeprazole 40 mg PO DAILY 01/03/19
== END 2019-01-03 16:12 | disposition home or self-care (01) ==
LOC: ED 15:44
DX: S33.5XXA Sprain of ligaments of lumbar spine, initial encounter (principal); W19.XXXA Unspecified fall, initial encounter; Z76.0 Encounter for issue of repeat prescription; F17.210 Nicotine dependence, cigarettes, uncomplicated
CPT/HCPCS: 99283

== ENCOUNTER 2019-01-05 02:29 | Outpatient (CLI) | END 2019-01-05 02:30 | disposition home or self-care (01) | LOC: AMBL 02:29 | PROVIDERS: ATTEND Internal Medicine Geriatric Medicine | DX: R07.9 Chest pain, unspecified (principal); R29.6 Repeated falls; M54.9 Dorsalgia, unspecified; R51 Headache; S60.212A Contusion of left wrist, initial encounter; S50.02XA Contusion of left elbow, initial encounter; R41.0 Disorientation, unspecified; W19.XXXA Unspecified fall, initial encounter ==

== ENCOUNTER 2019-01-11 22:03 | Emergency (ER) ==
[2019-01-11 22:15] VITALS: BP 108/69; TEMP 97.9; BMI 19.1
--- NOTE | 2019-01-11 22:34 | ED.PDOC ---
General ED Provider: Dr. MENA GARBER Chief Complaint: Back Pain Stated Complaint: Back pain; fall 2 weeks ago - given Flexeril - out of it. Also c/o DIA - out of her sumatriptin and zofran. Can get her prescriptions filled tomorrow. Needs something for tonight Time Seen by Physician: 22:40 Mode of Arrival: Walk-In Information Source: Patient Primary Care Provider: CONNIE ALDRIDGE Nursing and Triage Documentation Reviewed and Agree: Yes Does patient meet sepsis criteria?: No System Inflammatory Response Syndrome: Not Applicable Sepsis Protocol: For patient's 13 years and over: Temp is 96.8 and below OR 101 and greater Pulse >90 BPM Resp >20/minute Acutely Altered Mental Status Are patient's symptoms suggestive of a new infection, such as: -Pneumonia -Skin, Soft Tissue -Endocarditis -UTI -Bone, Joint Infection -Implantable Device -Acute Abdominal Infection -Wound Infection -Meningitis -Blood Stream Catheter Infection -Unknown Review of Systems - Review Of Systems Constitutional: Reports: Malaise (secondary to back pain and headache) Respiratory: Reports: No symptoms Cardiac: Reports: No symptoms Musculoskeletal: Reports: Back pain (following a fall 2 weeks ago - relieved by Flexeril) Neurological: Reports: Anxiety All Other Systems: Reviewed and Negative Past Medical History - Past Medical History Previously Healthy: No Endocrine: Reports: Hypothyroid, None Cardiovascular: Reports: Hypertension, None Respiratory: Reports: COPD, None Hematological: Reports: Anemia, None Gastrointestinal: Reports: GERD, None Genitourinary: Reports: None Neuro/Psych: Reports: TIA, None, Other, Migraine, Anxiety, Depression Musculoskeletal: Reports: None, Arthritis, Other (Lupus/Raynauds) Cancer: Reports: Lung, None Last Menstrual Period: PT HAS HAD A HYSTERECTOMY Other Pertinent Past Medical History: Reynauds, Lupus, back pain, heart problems - Surgical History General Surgical History: Reports: Appendectomy, Hysterectomy, Cholecystectomy, Unknown, None - Family History Family History: Reports: None, Unknown - Social History Smoking Status: Current every day smoker, Heavy tobacco smoker Hx Substance Use: Yes (ALCOHOL YEARS AGO) Alcohol Screening: Occasionally - Immunizations Tetanus Shot up to Date: Yes Physical Exam - Physical Exam Appearance: Ill-appearing Ill-appearing: Mild (chronic appearing) Pain Distress: Mild (discomfort lower back and headache) Eyes: KE, EOMI ENT: Oropharynx normal Neck: Supple Respiratory: Airway patent, Breath sounds clear, Respirations nonlabored Cardiovascular: RRR, Pulses normal Skin: Warm, Dry, Normal color Neurological: Sensation intact, Motor intact Critical Care Note - Critical Care Note Total Time (mins): 10 Course - Course Orders, Labs, Meds: Orders Category Date Time Status Cyclobenzaprine HCl [Flexeril] MEDS 01/11/19 23:28 Discontinued 10 mg PO ONCE STA Ondansetron [Zofran Odt] MEDS 01/11/19 22:53 Discontinued 4 mg PO ONCE STA Sumatriptan Succinate [Imitrex] MEDS 01/11/19 22:52 Discontinued 6 mg SUBCUT ONCE STA Medications Discontinued Medications Generic Name Dose Route Start Last Admin Trade Name Freq PRN Reason Stop Dose Admin Cyclobenzaprine HCl 10 mg 01/11/19 23:28 01/11/19 23:36 Flexeril PO 01/11/19 23:29 Not Given ONCE STA Ondansetron HCl 4 mg 01/11/19 22:53 01/11/19 23:08 Zofran Odt PO 01/11/19 22:54 4 mg ONCE STA Administration Sumatriptan Succinate 6 mg 01/11/19 22:52 01/11/19 23:10 Imitrex SUBCUT 01/11/19 22:53 6 mg ONCE STA Administration Vital Signs: Temp Pulse Resp BP Pulse Ox 01/11/19 22:04 97.9 F 67 20 108/69 96 Departure - Departure Time of Disposition: 23:30 Disposition: HOME SELF-CARE Discharge Problem: Low back pain Qualifiers: Chronicity: chronic Back pain laterality: bilateral Sciatica presence: without sciatica Qualified Code(s): M54.5 - Low back pain Instructions: Low Back Strain (ED) Condition: Good Pt referred to PMD for follow-up: Yes (Call for appointment) IPMP verified?: Yes Additional Instructions: Use medications as prescribed; must follow up with primary care for refils of prescriptions. Prescriptions: Cyclobenzaprine HCl [Flexeril] 10 mg PO TID #10 tablet Allergies/Adverse Reactions: Allergies nicotine patch Adverse Reaction (Uncoded 01/11/19 22:15) Rash Home Medications: Ambulatory Orders Amitriptyline HCl 50 mg PO BEDTIME 10/26/16 Ondansetron HCl [Zofran Tab] 4 mg PO Q8H PRN #14 tablet 11/12/17 Amitriptyline HCl [Elavil] 25 mg PO DAILY 04/24/18 Atorvastatin Calcium [Lipitor] 40 mg PO DAILY 04/24/18 Diphenhydramine HCl [Benadryl] 25 mg PO BID 04/24/18 Nifedipine [Procardia Xl] 30 mg PO DAILY 04/24/18 Ranitidine HCl [Zantac] 150 mg PO BIDAC 04/24/18 Levothyroxine Sodium [Tirosint] 88 mcg PO DAILY 06/14/18 Promethazine HCl [Phenergan Tab] 25 mg PO Q12H #10 tablet 12/14/18 Triamcinolone Acetonide [Triamcinolone Acetonide 0.1% Cream] 30 gm TP BID #15 cream..g. 12/14/18 Cyclobenzaprine HCl [Flexeril] 10 mg PO TID PRN 01/03/19 Omeprazole 40 mg PO DAILY 01/03/19 Cyclobenzaprine HCl [Flexeril] 10 mg PO TID #10 tablet 01/11/19 Disposition Discussed With: Patient
[2019-01-11] MEDS ORDERED: IMITREX SUBCUT STA (22:52)
[2019-01-11] MEDS ORDERED: ZOFRAN ODT PO STA (22:53)
[2019-01-11] MEDS ORDERED: FLEXERIL PO STA (23:28)
== END 2019-01-11 23:50 | disposition home or self-care (01) ==
LOC: ED 22:03
DX: M54.5 Low back pain (principal); R51 Headache; W19.XXXA Unspecified fall, initial encounter; F17.210 Nicotine dependence, cigarettes, uncomplicated
CPT/HCPCS: 96372; 99282